=== PATIENT | female | born 1960 | race Asian ===

== ENCOUNTER → 2020-08-03 08:08 | Outpatient (BNVA) | payer OTHER, SELFPAY | PROVIDERS: PCP Internal Medicine; Referring Provider Internal Medicine; Visit Provider Physician Assistant | DX: Z01.818 Encounter for other preprocedural examination (principal) | CPT/HCPCS: 99203 ==

== ENCOUNTER 2020-08-07 09:55 | Outpatient (REF) | payer OTHER, SELFPAY | END 2020-08-07 09:56 | disposition home or self-care (01) | LOC: HO.HMGCLDS 09:55 | PROVIDERS: PCP Internal Medicine; Visit Provider Internal Medicine | DX: Z20.828 Contact with and (suspected) exposure to other viral communicable diseases (principal) | CPT/HCPCS: 36415; 87635 ==

== ENCOUNTER 2020-09-22 09:10 | Outpatient (REF) | payer OTHER, SELFPAY ==
--- NOTE | 2020-09-22 | MM_ITS ---
EXAMINATION: MM SCREENING DIGITAL BREAST TOMOSYNTHESIS, BILATERAL CLINICAL INFORMATION: Screening. Asymptomatic. 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 Due for yearly. COMPARISON: Mammography: 08/23/2019, 08/17/2018, 08/21/2017 TECHNIQUE: Digital breast tomosynthesis is performed in both the craniocaudal and mediolateral oblique views along with computer-aided detection (CAD). Synthesized 2D images are generated from the tomosynthesis. Additional left CC view is provided. FINDINGS: There are scattered areas of fibroglandular density (ACR BI-RADS breast composition Category b). There are no significant masses, abnormal calcifications, or other abnormalities. There are post therapy changes on the left with mild reduced breast size and stable scarring. Old biopsy clip marker again seen 6:00 left breast. There are no significant changes in either breast from prior studies. MM/MM tomosynthesis screening BI IMPRESSION: No mammographic evidence of malignancy. Post therapy changes left breast. ASSESSMENT: BI-RADS 2: Benign RECOMMENDATION: Routine annual mammography screening. This patient's information was entered into a reminder system with a target due date for their next mammogram.
== END 2020-09-22 09:11 | disposition home or self-care (01) ==
LOC: HO.MAMMO 09:10
PROVIDERS: PCP Internal Medicine; Visit Provider Internal Medicine
DX: Z12.31 Encounter for screening mammogram for malignant neoplasm of breast (principal)
CPT/HCPCS: 77063; 77067

== ENCOUNTER 2021-03-06 12:38 | Outpatient (REF) | payer OTHER, SELFPAY ==
[2021-03-06 14:12] LABS: MANUAL DIFF FLAG NO
[2021-03-06 14:27] LABS: Basophils Percent Auto 0.4 % (0-2); Eosinophils Percent Auto 0.5 % (0-4); Hematocrit 41.9 % (37-47); Hemoglobin 13.5 g/dl (12.0-16.0); Imm Gran Abs Auto 0.01 X10*3/uL (0.00-0.03); Imm Gran Pct Auto 0.2 % (0.0-0.4); Lymphocytes Absolute Auto 2.5 X10*3/uL (1.2-4.9); Lymphocytes Percent Auto 44.9 % (20-40); Mean Corpuscular HGB Conc 32.2 g/dl (31.0-35.0); Mean Corpuscular Hemoglobin 29.5 pg (27.0-33.0); Mean Corpuscular Volume 91.5 fL (80-98); Mean Platelet Volume 10.3 fL (9.4-12.3); Monocytes Absolute Auto 0.5 X10*3/uL (0.1-1.2); Monocytes Percent Auto 8.7 % (2-11); Neutrophils Absolute Auto 2.5 X10*3/uL (2.0-8.3); Neutrophils Percent Auto 45.3 % (45-73); Platelet Count 229 X10*3/uL (160-400); Red Blood Count 4.58 X10*6/uL (4.20-5.50); Red Cell Distribution Width 12.5 % (11.0-16.0); White Blood Count 5.5 X10*3/uL (4.8-10.8)
[2021-03-06 14:33] LABS: Alanine Aminotransferase 14 U/L (0-31); Albumin Level 4.7 g/dL (3.5-5.0); Alkaline Phosphatase 52 U/L (39-117); Anion Gap 14 (12-20); Aspartate Amino Transferase 19 U/L (5-31); Bilirubin Total 1.2 mg/dL (0.0-1.0); Blood Urea Nitrogen 14 mg/dL (9-16); Calcium 9.3 mg/dL (8.4-10.2); Carbon Dioxide 26 mmol/L (22-29); Chloride 104 mmol/L (96-108); Estimated Glomerular Filt Rate > 60; Glucose Random 115 mg/dL (60-115); Potassium 3.6 mmol/L (3.3-5.1); Sodium 140 mmol/L (135-145); Total Protein 7.3 g/dL (6.5-8.0)
[2021-03-06 14:44] LABS: Estimated Average Glucose 192 mg/dL; Hemoglobin A1c % 8.3 %
[2021-03-06 14:53] LABS: Creatinine Urine 14.38 mg/dL; Microalbumin Urine < 5.0 mg/L
[2021-03-07 06:12] LABS: LDL Cholesterol Direct 109 mg/dL (<100)
== END 2021-03-06 12:39 | disposition home or self-care (01) ==
LOC: HO.HMGCLDS 12:38
PROVIDERS: PCP Internal Medicine; Visit Provider Internal Medicine
DX: E13.9 Other specified diabetes mellitus without complications (principal); E78.9 Disorder of lipoprotein metabolism, unspecified
CPT/HCPCS: 36415; 80053; 82043; 83036; 83721; 85025

== ENCOUNTER → 2021-03-16 12:45 | Outpatient (BNVA) | payer OTHER, SELFPAY | PROVIDERS: PCP Internal Medicine; Referring Provider Internal Medicine; Visit Provider Nurse Practitioner Family ==

== ENCOUNTER 2021-06-26 07:48 | Day surgery (SDC) | payer OTHER, SELFPAY ==
[2021-06-19 11:09] VITALS: BMI 26.0
--- NOTE | 2021-06-25 10:14 | HO.ANESPROP2 ---
Documented by User: Magdalena Friedman NP 06/25/21 10:15 HPI - Anesthesia Eval Consult details Narrative: 61yo F for Colonoscopy PMFSH Active Problems Active Problems: All Active Problems (Updated 06/19/21 @ 11:04 by Cynthia Vieyra RN) Diabetes 1.5, managed as type 2 (Acute) High cholesterol (Acute) Screening for colon cancer (Acute) Lipid disorder (Acute) Past Medical History Medical History Breast cancer in female Diabetes Elevated cholesterol Family History Family History Father Cancer Mother Stroke CVD (cardiovascular disease) Surgical History Surgical History History of lumpectomy of left breast Hx of colonoscopy Social History Social History Household Members: Spouse Alcohol intake: never Patient Tobacco Use Status: Never used Tobacco Use of substances other than those prescribed or required for medical reasons: No Advance Directives Information Provided: No Meds Allergies Allergy/AdvReac Type Severity Reaction Status Date / Time No Known Allergies Allergy Verified 06/26/21 08:01 [No Known Allergies*] Home Medications Medication Instructions Recorded Confirmed Last Taken Type bisacodyl 5 mg tablet,delayed 10 mg PO DAILY 03/16/21 Unknown History release blood sugar diagnostic #10 ea 03/16/21 Unknown History lancets 28 gauge #100 ea 03/16/21 Unknown History omeprazole 20 mg capsule,delayed 20 mg PO DAILY 03/16/21 Unknown History release peg-electrolyte solution 420 gram ml PO 03/16/21 Unknown History oral solution Exam Exam Date and Time: June 25, 2021 1014 Height,Weight and Vital Signs: Height 4 ft 11 in Weight 58.513 kg Pertinent Lab Results Pertinent Lab Results: Laboratory Tests 03/06/21 03/06/21 12:43 12:43 WBC 5.5 Hgb 13.5 Hct 41.9 Plt Count 229 Sodium 140 Potassium 3.6 Chloride 104 Carbon Dioxide 26 BUN 14 Creatinine 0.65 Assessment and Plan Assessment Anesthesia Assessment: Chart Reviewed Documented by User: Soy Yang MD 06/26/21 08:41 PMFSH Past Medical History Medical History Breast cancer in female Diabetes Elevated cholesterol Family History Family History Father Cancer Mother Stroke CVD (cardiovascular disease) Family history of problems with anesthesia: No Surgical History Surgical History History of lumpectomy of left breast Hx of colonoscopy History of Problems with Anesthesia: No Social History Social History Household Members: Spouse Alcohol intake: never Patient Tobacco Use Status: Never used Tobacco Use of substances other than those prescribed or required for medical reasons: No Advance Directives Information Provided: No Meds Allergies Allergy/AdvReac Type Severity Reaction Status Date / Time No Known Allergies Allergy Verified 06/26/21 08:01 [No Known Allergies*] Home Medications Medication Instructions Recorded Confirmed Last Taken Type bisacodyl 5 mg tablet,delayed 10 mg PO DAILY 03/16/21 Unknown History release blood sugar diagnostic #10 ea 03/16/21 Unknown History lancets 28 gauge #100 ea 03/16/21 Unknown History omeprazole 20 mg capsule,delayed 20 mg PO DAILY 03/16/21 Unknown History release peg-electrolyte solution 420 gram ml PO 03/16/21 Unknown History oral solution Exam Airway Mallampati Class: II TM Dist: >3cm Neck ROM: Full Loose/Missing/Broken Teeth: No Assessment and Plan Assessment Anesthesia Assessment: Anesthesia Plan Discussed Final Anesthetic Review Family History of Problems with Anesthesia: No History of Problems with Anesthesia: No NPO: Yes ASA Class: II Final Preanesthetic Review: No Changes in Pt Med Stat, Meds/Allgs Chart Reviewed, Consent Obtained/Reviewed and Anes Risks/Benef Reviewed Patient Risk: Low Procedure Risk: Low Anesthetic Plan Anesthetic Plan: MAC: Disposition: Standard PACU
[2021-06-26 08:12] VITALS: BP 140/68; PULSE 67; RESP 16; TEMP 36.6; O2SAT 97
[2021-06-26 08:14] LABS: Glucose, Whole Blood 191 mg/dL (60-115)
[2021-06-26] MEDS: Lactated Ringers 1,000 ML 100 ML IVCONT (08:21)
--- NOTE | 2021-06-26 08:38 | MHC.SHP ---
Pre-Procedural Eval Section A Date of Service: 06/26/21 The patient is an INPATIENT: No The History & Physical has been completed within 30 days and I have reviewed it.: No Section B Chief Complaint: Screening, Constipation Details of Present Illness: Colon cancer screening Relevant Family History (Specify if Yes): No Relevant Social History: None Present Medications: see Short Stay Collaborative assessment Medical History: Significant History (Breast cancer in female Diabetes) History of Previous Operations: Relevant previous surgery/procedure and date(s) (History of lumpectomy of left breast Hx of colonoscopy) Allergies: Allergies Allergy/AdvReac Type Severity Reaction Status Date / Time No Known Allergies Allergy Verified 06/26/21 08:01 [No Known Allergies*] Review of Systems Sugical H&P ROS: Negative: Constitution, Cardiovascular, Respiratory and Gastrointestinal Exam Surgical H&P Exam: Normal: Heart, Normal: Lungs, Normal: Extremities and Normal: Abdomen Plan Diagnosis/Plan: Unchanged I have reviewed the history and physical and performed a pertinent physical examination on my patient. No changes have occurred unless specified.
--- NOTE | 2021-06-26 08:46 | P.BOP_ITS ---
Brief Operative Note Date of Service: 06/26/21 Pre-op diagnosis: Colon cancer screening Post-op diagnosis: other (Colon polyps, hemorrhoids) Procedure: COLONOSCOPY TILL CECUM WITH BIOPSIES AND SNARE POLYPECTOMY Consent: Indications for the procedure and potential complications of bleeding, perforation, reaction to medications and missed diagnosis were discussed with the patient and informed consent was obtained. Instrument: Olympus PCF H 190 L variable stiffness pediatric colonoscope Monitoring: Vital signs and clinical assessment, intermittent blood pressure monitoring, continuous EKG monitoring, Pulse oximetry and Carbon Dioxide monitoring were done throughout the procedure. Colon withdrawl time was 17 minutes. Procedure: The patient was placed in the left lateral decubitis position and pre-procedure medications were administered. After a digital rectal examination of the ano-rectum, the video colonoscope was inserted into the rectum and advanced through the colon to the cecum. The colonoscope was slowly withdrawn in a retrograde panoramic fashion and the colon mucosa was carefully examined including a retroflexed view of the rectum. Findings and interventions are described below. Procedure Difficulty: Without difficulty Findings: Terminal Ileum: Not evaluated Cecum: Normal Ascending Colon: Normal Transverse Colon: A 12-15 mm sessile polyp removed with a hot snare. A 4-5 mm sessile polyp removed with a cold bx. Descending Colon: Normal Sigmoid Colon: Normal Rectum: Normal Ano-rectum: Moderate internal hemorrhoids Colon preparation: Excellent Impression and Post Procedure Diagnosis: Colonoscopy Findings: Two small to medium sized polyps removed Moderate hemorrhoids on retroflexed exam. Plan: Await pathology results Patient has an appointment on 07/10/21 in the [facility] Clinic with Meli Rodriguez FNP-BC . Repeat Colonoscopy interval based on path results - in 3-5 years if polyps are adenomatous and 10 years if polyps are hyperplastic. Above findings were reviewed with the patient and colon polyps handout was given in the discharge area Surgeon: Keyona Bermudez MD Anesthesia: MAC (Jo Rowan CRNA and Dr Yang) Was an Stationary Engineer Apprentice used for this Procedure?: Yes Stationary Engineer Apprentice: Sugar Ordaz Estimated blood loss (mL): 0 Pathology: other (a. transverse colon polyps) Condition: stable Disposition: PACU
--- NOTE | 2021-06-26 09:26 | W.PM.OPN ---
Operative Note Operative Note Date of Service: 06/26/21 Narrative: Pre-op diagnosis:?Colon cancer screening Post-op diagnosis:?other (Colon polyps, hemorrhoids) Procedure:? COLONOSCOPY TILL CECUM WITH BIOPSIES AND SNARE POLYPECTOMY Consent: Indications for the procedure and potential complications of bleeding, perforation, reaction to medications and missed diagnosis were discussed with the patient and informed consent was obtained. Instrument: Olympus PCF H 190 L variable stiffness pediatric colonoscope Monitoring: Vital signs and clinical assessment, intermittent blood pressure monitoring, continuous EKG monitoring, Pulse oximetry and Carbon Dioxide monitoring were done throughout the procedure. Colon withdrawl time was 17 minutes. Procedure: The patient was placed in the left lateral decubitis position and pre-procedure medications were administered. After a digital rectal examination of the ano-rectum, the video colonoscope was inserted into the rectum and advanced through the colon to the cecum. The colonoscope was slowly withdrawn in a retrograde panoramic fashion and the colon mucosa was carefully examined including a retroflexed view of the rectum. Findings and interventions are described below. Procedure Difficulty: Without difficulty Findings: Terminal Ileum: Not evaluated Cecum:? Normal Ascending Colon:? Normal Transverse Colon:? A 12-15 mm sessile polyp removed with a hot snare.? A 4-5 mm sessile polyp removed with a cold bx. Descending Colon:? Normal Sigmoid Colon:? Normal Rectum:? Normal Ano-rectum:? Moderate internal hemorrhoids Colon preparation: Excellent ? Impression and Post Procedure Diagnosis: Colonoscopy Findings: Two small to medium sized polyps removed Moderate hemorrhoids on retroflexed exam. Plan: Await pathology results Patient has an appointment on 07/10/21 in the GI Clinic with ? Meli Rodriguez, IMPERSONATOR CHARACTER- . Repeat Colonoscopy interval based on path results - in 3-5 years if polyps are adenomatous and 10 years if polyps are hyperplastic. Above findings were reviewed with the patient and colon polyps handout was given in the discharge area Surgeon:?Keyona Bermudez MD Anesthesia:?MAC (Jo Rowan CRNA and Dr Yang) Was an Computer Numeric Control Setter used for this Procedure?:?Yes Computer Numeric Control Setter:?Sugar Ordaz Estimated blood loss (mL):?0 Pathology:?other (a. transverse colon polyps) Condition:?stable Disposition:?PACU
[2021-06-26 09:30] VITALS: BP 89/42; PULSE 64; RESP 16; TEMP 36.1; O2SAT 99
[2021-06-26 09:45] VITALS: BP 114/62; PULSE 64; RESP 16; TEMP 36.1; O2SAT 97
== END 2021-06-26 10:25 | disposition home or self-care (01) ==
PROVIDERS: PCP Internal Medicine; Visit Provider Internal Medicine Gastroenterology
PROC: 0DJD8ZZ Inspection of Lower Intestinal Tract, Via Natural or Artificial Opening Endoscopic (ICD-10-PCS; CPT 45378; principal; 2021-06-26 09:10)
DX: Z12.11 Encounter for screening for malignant neoplasm of colon (principal); D12.3 Benign neoplasm of transverse colon; K59.00 Constipation, unspecified; K64.8 Other hemorrhoids; E13.9 Other specified diabetes mellitus without complications; E78.00 Pure hypercholesterolemia, unspecified; Z79.84 Long term (current) use of oral hypoglycemic drugs; Z79.899 Other long term (current) drug therapy; Z85.3 Personal history of malignant neoplasm of breast
CPT/HCPCS: 45385; 45380; 82947; 88305

== ENCOUNTER → 2021-07-10 14:26 | Outpatient (BNVA) | payer OTHER, SELFPAY | PROVIDERS: Visit Provider Nurse Practitioner Family | DX: K59.01 Slow transit constipation (principal); D36.9 Benign neoplasm, unspecified site; Z98.890 Other specified postprocedural states | CPT/HCPCS: 99212 ==

== ENCOUNTER 2021-08-18 09:06 | Emergency (ER) | payer OTHER, SELFPAY ==
--- NOTE | ~2021-08-18 | CT_ITS ---
EXAMINATION: CT HEAD WITHOUT CONTRAST CLINICAL INFORMATION: Dizziness and headache. COMPARISON: None TECHNIQUE: Contiguous axial imaging was performed from the skull base to vertex without intravenous administration of contrast. This CT examination was performed using dose optimization techniques as appropriate, variously including the following: *Automated exposure control *Adjustment of mA and/or kV according to patient size (this includes techniques or standardized protocols for targeted exams where dose is matched to indication/reason for exam; i.e. extremities or head) *Use of iterative reconstruction technique DLP: 636.17 mGy-cm FINDINGS: There is no evidence of acute intracranial hemorrhage or territorial infarction. No abnormal mass effect or midline shift is seen. [place] to white matter differentiation is well preserved. No extra-axial fluid collections are identified. The ventricles are normal in size. Incidental note is made of bilateral dense near symmetric calcifications involving the basal ganglia (specifically bilateral globus pallidus), and both lobes of the cerebellum (dentate nuclei). The osseous structures and soft tissues are normal. The mastoid air cells and visualized portions of the paranasal sinuses are well aerated. CT/CT head/brain wo con IMPRESSION: No acute intracranial pathology. Incidental note is made of bilateral basal ganglia and bilateral dentate nuclei calcifications.
[2021-08-18 09:14] VITALS: BP 202/107; PULSE 74; RESP 18; TEMP 36.9; O2SAT 97; BMI 24.7
--- NOTE | 2021-08-18 09:29 | ED_ITS ---
HPI - General Adult General Chief complaint: General Medical Stated complaint: VOMITING HEADACHE Time Seen by Provider: 08/18/21 09:16 Source: patient Mode of arrival: ambulatory Limitations: no limitations History of Present Illness HPI narrative: 61 y/o female with history of diabetes, HLD who comes into the ER from home c/o frontal headache, nausea, vomiting and feeling unwell for the last 3 days. She reports anytime she tries to eat she vomits. She reports when she stands up she gets a severe frontal headache, palpitations and sweating episodes. She denies any known sick contacts. She denies this being the worst headache of her life. She reports it is worse when she stands up and better when she lays flat. It is also better when she takes Tylenol. She has no weakness, numbness, tingling. She is not confused. She denies any abdominal pain or diarrhea. She has not checked her temperature at home but denies any fevers. She is fully vaccinated against COVID-19. She has no chest pain or shortness of breath. Her palpitations occur when she stands up in her headache is worse and when she is about to vomit MD complaint: Headache and vomiting Onset (ago): day(s) (Three) Location: head and abdomen Radiation: non-radiation Severity: moderate Severity scale (1-10): 6 Quality: aching and other (Throbbing) Pain Consistency: intermittent Relieving factors: medication, rest and other (Laying flat) Exacerbating factors: eating Associated symptoms: diaphoresis, headaches, loss of appetite, malaise and nausea/vomiting Treatments prior to arrival: none Related Data Home Medications Medication Instructions Recorded Confirmed bisacodyl 5 mg tablet,delayed 10 mg PO DAILY 03/16/21 release lancets 28 gauge #100 ea 03/16/21 omeprazole 20 mg capsule,delayed 20 mg PO DAILY 03/16/21 release peg-electrolyte solution 420 gram ml PO 03/16/21 oral solution Previous Rx's Medication Instructions Recorded methylcellulose (laxative) 500 mg 500 mg PO DAILY #30 tab 03/16/21 tablet (Citrucel) glipizide 5 mg tablet 5 mg PO BID #180 tab 06/07/21 metformin 750 mg tablet,extended 750 mg PO DAILY 90 Days #90 tab 06/07/21 release 24 hr simvastatin 40 mg tablet 40 mg PO BEDTIME 90 Days #90 tab 06/07/21 lisinopril 2.5 mg tablet 2.5 mg PO DAILY 90 Days #90 tab 06/08/21 docusate sodium 100 mg capsule 100 mg PO BEDTIME #30 cap 07/10/21 blood sugar diagnostic #100 ea 07/11/21 ibuprofen 600 mg tablet 600 mg PO Q8H PRN #10 tab 08/18/21 ondansetron 4 mg disintegrating 4 mg PO Q8H PRN #7 tab 08/18/21 tablet Allergies Allergy/AdvReac Type Severity Reaction Status Date / Time No Known Allergies Allergy Verified 07/10/21 14:32 [No Known Allergies*] Review of Systems Review of Systems: Constitutional: No Fever, + Chills, +sweats ENT/Mouth: No sore throat, No Rhinorrhea, No Swallowing Difficulty Eyes: No Eye Pain, No Swelling, No Redness Cardiovascular: No Chest Pain, No SOB, No Orthopnea, No Edema, +Palpitations Respiratory: No Cough, No Sputum, No Wheezing, No dyspnea Gastrointestinal: + Nausea, + Vomiting, No Diarrhea, No abdominal Pain, No Hematochezia, No Melena Genitourinary: No Dysuria, No Urinary Frequency, No Hematuria Musculoskeletal: No joint pain, No Myalgias Skin: No Skin Lesions, No rash Neuro: No Weakness, No Numbness, No Dizziness, + Headache Psych: + Anxiety/Panic, No Depression Heme/Lymph: No Bruising, No Lymphadenopathy Endocrine: No Polyuria, No Polydipsia PMFSH Past Medical History Medical History (Updated 08/18/21 @ 12:55 by MAGAN Ken) Breast cancer in female Diabetes Elevated cholesterol Tubular adenoma Surgical History History of lumpectomy of left breast Hx of colonoscopy Family History Family History Father Cancer Mother Stroke CVD (cardiovascular disease) Social History Social History Household Members: Spouse Alcohol intake: never Patient Tobacco Use Status: Never used Tobacco Advance Directives: No Advance Directives Information Provided: Yes Physical Exam Vital Signs: Vital Signs: Last Vital Signs Temp 98.4 F 08/18/21 09:14 Pulse 58 08/18/21 10:00 Resp 16 08/18/21 10:00 BP 134/61 08/18/21 10:00 Pulse Ox 96 08/18/21 10:00 Body Mass Index 24.7 Appearance: Alert. Oriented X3. No acute distress. Eyes: Pupils equal, round and reactive to light. EOMI, no nystagmus. ENT: Pharynx normal. Moist mucus membranes Neck: Normal inspection. Neck supple. CVS: Normal heart rate and rhythm. Pulses normal. Respiratory: No respiratory distress. Breath sounds normal. Abdomen: Soft and nontender. +BS x4 Skin: Skin warm and dry. Normal skin color. Normal skin turgor. No rashes. Extremities: No lower extremity edema. Left elbow with mild superficial well healing abrasion Neuro: Oriented X 3. No motor deficit. No sensory deficit. Ambulates with steady gait. Course Course Course Narrative: 61 y/o female with history of DM and HLD presenting with frontal headaches, nausea and vomiting for the last 3 days. She reports inability to tolerate any PO. Her headaches are worse with standing and movement. On arrival her BP significantly elevated 202/107 with HR 70's. She denies a history of hypertension, question this is an accurate blood pressure given the cuff was very large and she was anxious on arrival. Will repeat vital signs chelly. Will plan for head CT & metabolic workup. Reevaluation(s) Reevaluation #1: Lab workup is unremarkable. Her head CT did not show any acute hemorrhage or infarct. She was given fluids, Zofran, and Toradol with improvement in her symptoms. She is tolerating p.o.. She is stable for discharge home a with supportive care. She is encouraged follow-up with her doctor next week or come back to the ER if symptoms do not improve or worsen. Medical Decision Making Lab Data Result diagrams: 08/18/21 09:33 08/18/21 09:33 Labs: Lab Results 08/18/21 08/18/21 08/18/21 Range/Units 09:33 09:33 09:33 WBC 4.9 (4.8-10.8) X10*3/uL RBC 4.89 (4.20-5.50) X10*6/uL Hgb 14.5 (12.0-16.0) g/dl Hct 43.5 (37-47) % MCV 89.0 (80-98) fL MCH 29.7 (27.0-33.0) pg MCHC 33.3 (31.0-35.0) g/dl RDW 12.1 (11.0-16.0) % Plt Count 240 (160-400) X10*3/uL MPV 9.8 (9.4-12.3) fL Immature Gran % (Auto) 0.4 (0.0-0.4) % Neut % (Auto) 55.8 (45-73) % Lymph % (Auto) 33.6 (20-40) % [place] % (Auto) 9.2 (2-11) % Eos % (Auto) 0.8 (0-4) % Baso % (Auto) 0.2 (0-2) % Lymph # (Auto) 1.7 (1.2-4.9) X10*3/uL [place] # (Auto) 0.5 (0.1-1.2) X10*3/uL Eos # (Auto) 0.0 (0.0-0.4) X10*3/uL Baso # (Auto) 0.0 (0.0-0.2) X10*3/uL Abs Immat Gran (auto) 0.02 (0.00-0.03) X10*3/uL Absolute Neuts (auto) 2.7 (2.0-8.3) X10*3/uL Absolute Nucleated RBC 0.000 (0.0-0.012) X10*3/uL Nucleated RBC % (auto) 0.0 (0.0-0.2) /100WBC Sodium 137 (135-145) mmol/L Potassium 3.8 (3.3-5.1) mmol/L Chloride 101 (96-108) mmol/L Carbon Dioxide 25 (22-29) mmol/L Anion Gap 15 (12-20) BUN 13 (9-16) mg/dL Creatinine 0.71 (0.5-1.4) mg/dL Estim Creat Clear Calc 65.3 Estimated GFR > 60 Random Glucose 245 H (60-115) mg/dL Lactic Acid 1.6 (0.5-2.0) mmol/L Calcium 9.2 (8.4-10.2) mg/dL Magnesium 2.0 (1.6-2.6) mg/dL Total Bilirubin 0.8 (0.0-1.0) mg/dL Direct Bilirubin 0.3 (0.0-0.5) mg/dL AST 23 (5-31) U/L ALT 22 (0-31) U/L Alkaline Phosphatase 68 D (39-117) U/L Total Protein 7.3 (6.5-8.0) g/dL Albumin 4.4 (3.5-5.0) g/dL Urine Color Urine Appearance Urine pH (5.0-8.0) Ur Specific [place] (1.005-1.025) Urine Protein (NEG-TRACE) MG/DL Urine Glucose (UA) (NEG) MG/DL Urine Ketones (NEG) MG/DL Urine Blood (NEG) Urine Nitrite (NEG) Ur Leukocyte Esterase (NEG) Urine RBC (0) /HPF Urine WBC (0-4) /HPF Ur Squamous Epith Cells /LPF Urine Bacteria /LPF Urine Mucus /LPF COVID-19 (DAVIN) (Negative) COVID-19 Clin Com 08/18/21 08/18/21 Range/Units 09:33 10:21 WBC (4.8-10.8) X10*3/uL RBC (4.20-5.50) X10*6/uL Hgb (12.0-16.0) g/dl Hct (37-47) % MCV (80-98) fL MCH (27.0-33.0) pg MCHC (31.0-35.0) g/dl RDW (11.0-16.0) % Plt Count (160-400) X10*3/uL MPV (9.4-12.3) fL Immature Gran % (Auto) (0.0-0.4) % Neut % (Auto) (45-73) % Lymph % (Auto) (20-40) % [place] % (Auto) (2-11) % Eos % (Auto) (0-4) % Baso % (Auto) (0-2) % Lymph # (Auto) (1.2-4.9) X10*3/uL [place] # (Auto) (0.1-1.2) X10*3/uL Eos # (Auto) (0.0-0.4) X10*3/uL Baso # (Auto) (0.0-0.2) X10*3/uL Abs Immat Gran (auto) (0.00-0.03) X10*3/uL Absolute Neuts (auto) (2.0-8.3) X10*3/uL Absolute Nucleated RBC (0.0-0.012) X10*3/uL Nucleated RBC % (auto) (0.0-0.2) /100WBC Sodium (135-145) mmol/L Potassium (3.3-5.1) mmol/L Chloride (96-108) mmol/L Carbon Dioxide (22-29) mmol/L Anion Gap (12-20) BUN (9-16) mg/dL Creatinine (0.5-1.4) mg/dL Estim Creat Clear Calc Estimated GFR Random Glucose (60-115) mg/dL Lactic Acid (0.5-2.0) mmol/L Calcium (8.4-10.2) mg/dL Magnesium (1.6-2.6) mg/dL Total Bilirubin (0.0-1.0) mg/dL Direct Bilirubin (0.0-0.5) mg/dL AST (5-31) U/L ALT (0-31) U/L Alkaline Phosphatase (39-117) U/L Total Protein (6.5-8.0) g/dL Albumin (3.5-5.0) g/dL Urine Color YELLOW Urine Appearance HAZY Urine pH 6.0 (5.0-8.0) Ur Specific [place] >= 1.030 H (1.005-1.025) Urine Protein 1+ H (NEG-TRACE) MG/DL Urine Glucose (UA) 500 H (NEG) MG/DL Urine Ketones >=80 (NEG) MG/DL Urine Blood TRACE (NEG) Urine Nitrite NEG (NEG) Ur Leukocyte Esterase NEG (NEG) Urine RBC 1-4 (0) /HPF Urine WBC 0-2 (0-4) /HPF Ur Squamous Epith Cells 1+ /LPF Urine Bacteria NONE /LPF Urine Mucus 3+ /LPF COVID-19 (DAVIN) Negative (Negative) COVID-19 Clin Com See Note Discharge Plan Discharge Clinical Impression: Acute headache Qualifiers: Headache type: unspecified Intractability: not intractable Qualified Code(s): R51.9 - Headache, unspecified Vomiting Qualifiers: Vomiting type: unspecified Vomiting Intractability: non-intractable Nausea presence: with nausea Qualified Code(s): R11.2 - Nausea with vomiting, unspecified Patient Disposition: Home, Self-Care Instructions: Acute Headache (ED), Acute Nausea and Vomiting (ED) Additional Instructions: Your lab workup today was normal. Your CT scan did now show any causes of your headache. Recommend rest, drink plenty of fluid. Stick to a bland diet while you are not feeling well. Take the prescribed medications as needed for nausea & pain. Follow up with your doctor next week. If you develop new or worsening symptoms call 911 or come back to the ER for further evaluation. Prescriptions: New ondansetron 4 mg tablet,disintegrating 4 mg PO Q8H PRN (Reason: nausea and vomiting) Qty: 7 RF: 0 ibuprofen 600 mg tablet 600 mg PO Q8H PRN (Reason: pain) Qty: 10 RF: 0 No Action metformin 750 mg tablet extended release 24 hr 750 mg PO DAILY 90 Days Qty: 90 RF: 0 glipizide 5 mg tablet 5 mg PO BID Qty: 180 RF: 0 simvastatin 40 mg tablet 40 mg PO BEDTIME 90 Days Qty: 90 RF: 0 lisinopril 2.5 mg tablet 2.5 mg PO DAILY 90 Days Qty: 90 RF: 0 (DME) blood sugar diagnostic Strip See Rx Instructions strip Not Applicable .MEDSUPPLY Qty: 100 RF: 1 docusate sodium 100 mg capsule 100 mg PO BEDTIME Qty: 30 RF: 3 peg-electrolyte soln 420 gram recon soln PO RF: 0 bisacodyl 5 mg tablet,delayed release (DR/EC) 10 mg PO DAILY RF: 0 omeprazole 20 mg capsule,delayed release(DR/EC) 20 mg PO DAILY RF: 0 (DME) lancets 28 gauge misc See Rx Instructions gauge topical .MEDSUPPLY Qty: 100 RF: 0 Citrucel 500 mg tablet 500 mg PO DAILY Qty: 30 RF: 2 Referrals: Mary Pina MD [Primary Care Provider] - 1 week Stand Alone Forms: Work/School Release Discharge Date/Time: 08/18/21 13:26
[2021-08-18] MEDS: ondansetron HCL 4 MG/2 ML VIAL IVPUSH (09:42)
[2021-08-18 09:47] LABS: MANUAL DIFF FLAG NO
[2021-08-18 09:48] LABS: Basophils Percent Auto 0.2 % (0-2); Eosinophils Percent Auto 0.8 % (0-4); Hematocrit 43.5 % (37-47); Hemoglobin 14.5 g/dl (12.0-16.0); Imm Gran Abs Auto 0.02 X10*3/uL (0.00-0.03); Imm Gran Pct Auto 0.4 % (0.0-0.4); Lymphocytes Absolute Auto 1.7 X10*3/uL (1.2-4.9); Lymphocytes Percent Auto 33.6 % (20-40); Mean Corpuscular HGB Conc 33.3 g/dl (31.0-35.0); Mean Corpuscular Hemoglobin 29.7 pg (27.0-33.0); Mean Platelet Volume 9.8 fL (9.4-12.3); Monocytes Absolute Auto 0.5 X10*3/uL (0.1-1.2); Monocytes Percent Auto 9.2 % (2-11); Neutrophils Absolute Auto 2.7 X10*3/uL (2.0-8.3); Neutrophils Percent Auto 55.8 % (45-73); Platelet Count 240 X10*3/uL (160-400); Red Blood Count 4.89 X10*6/uL (4.20-5.50); Red Cell Distribution Width 12.1 % (11.0-16.0); White Blood Count 4.9 X10*3/uL (4.8-10.8)
[2021-08-18 10:00] VITALS: BP 134/61; PULSE 58; RESP 16; O2SAT 96
[2021-08-18 10:00] LABS: Lactic Acid 1.6 mmol/L (0.5-2.0)
[2021-08-18 10:04] LABS: COVID-19 Test Negative (Negative); IDNOW Serial# 9DD0AD1C
[2021-08-18 10:07] LABS: Alanine Aminotransferase 22 U/L (0-31); Albumin Level 4.4 g/dL (3.5-5.0); Alkaline Phosphatase 68 U/L (39-117); Anion Gap 15 (12-20); Aspartate Amino Transferase 23 U/L (5-31); Bilirubin Direct 0.3 mg/dL (0.0-0.5); Bilirubin Total 0.8 mg/dL (0.0-1.0); Blood Urea Nitrogen 13 mg/dL (9-16); Calcium 9.2 mg/dL (8.4-10.2); Carbon Dioxide 25 mmol/L (22-29); Chloride 101 mmol/L (96-108); Creatinine Clr Calc Pharmacy 65.3; Estimated Glomerular Filt Rate > 60; Glucose Random 245 mg/dL (60-115); Potassium 3.8 mmol/L (3.3-5.1); Sodium 137 mmol/L (135-145); Total Protein 7.3 g/dL (6.5-8.0)
[2021-08-18 10:30] LABS: Appearance Urine HAZY; Color Urine YELLOW; Glucose Urine UA 500 MG/DL (NEG); Leukocyte Esterase Urine NEG (NEG); Nitrite Urine NEG (NEG); Specific Gravity - Urine >= 1.030 (1.005-1.025); UACC Culture Trigger NO; Urine Blood TRACE (NEG); Urine Ketones >=80 MG/DL (NEG); Urine Protein 1+ MG/DL (NEG-TRACE)
[2021-08-18 10:36] LABS: Mucus Urine 3+ /LPF; Squamous Epithelial Cell Urine 1+ /LPF; WBC Urine 0-2 /HPF (0-4)
[2021-08-18] MEDS: 0.9 % Sodium Chloride 1,000 ML 999 ML IVCONT (11:08)
[2021-08-18] MEDS: Ketorolac Tromethamine 15 MG/ML VIAL 30 MG IVPUSH (11:09)
== END 2021-08-18 13:26 | disposition home or self-care (01) ==
PROVIDERS: Physician Assistant; Emergency Provider Emergency Medicine; PCP Internal Medicine
DX: R11.2 Nausea with vomiting, unspecified (principal); R51.9 Headache, unspecified; E11.9 Type 2 diabetes mellitus without complications; Z20.822 Contact with and (suspected) exposure to COVID-19
CPT/HCPCS: 36415; 70450; 80048; 80076; 81001; 83605; 83735; 85025; 87635; 96361; 96374; 96375; 99284; J1885; J2405

== ENCOUNTER 2021-09-24 08:57 | Outpatient (REF) | payer OTHER, SELFPAY ==
[2021-09-24 11:27] LABS: MANUAL DIFF FLAG NO
[2021-09-24 11:36] LABS: Basophils Percent Auto 0.2 % (0-2); Eosinophils Absolute Auto 0.1 X10*3/uL (0.0-0.4); Eosinophils Percent Auto 1.4 % (0-4); Hematocrit 41.6 % (37.0-47.0); Hemoglobin 13.4 g/dl (12.0-16.0); Imm Gran Abs Auto 0.01 X10*3/uL (0.00-0.03); Imm Gran Pct Auto 0.2 % (0.0-0.4); Lymphocytes Absolute Auto 1.8 X10*3/uL (1.2-4.9); Lymphocytes Percent Auto 42.7 % (20-40); Mean Corpuscular HGB Conc 32.2 g/dl (31.0-35.0); Mean Corpuscular Hemoglobin 29.5 pg (27.0-33.0); Mean Corpuscular Volume 91.4 fL (80.0-98.0); Mean Platelet Volume 10.1 fL (9.4-12.3); Monocytes Absolute Auto 0.4 X10*3/uL (0.1-1.2); Monocytes Percent Auto 8.8 % (2-11); Neutrophils Percent Auto 46.7 % (45-73); Platelet Count 257 X10*3/uL (160-400); Red Blood Count 4.55 X10*6/uL (4.20-5.50); Red Cell Distribution Width 12.6 % (11.0-16.0); White Blood Count 4.3 X10*3/uL (4.8-10.8)
[2021-09-24 11:46] LABS: Alanine Aminotransferase 21 U/L (0-31); Albumin Level 4.4 g/dL (3.5-5.0); Alkaline Phosphatase 65 U/L (39-117); Anion Gap 14 (12-20); Aspartate Amino Transferase 17 U/L (5-31); Bilirubin Total 0.8 mg/dL (0.0-1.0); Blood Urea Nitrogen 10 mg/dL (9-16); Calcium 9.3 mg/dL (8.4-10.2); Carbon Dioxide 25 mmol/L (22-29); Chloride 105 mmol/L (96-108); Estimated Glomerular Filt Rate > 60; Glucose Random 176 mg/dL (60-115); Potassium 4.4 mmol/L (3.3-5.1); Sodium 140 mmol/L (135-145); Total Protein 7.2 g/dL (6.5-8.0)
[2021-09-24 12:10] LABS: Estimated Average Glucose 214 mg/dL; Hemoglobin A1c % 9.1 %
[2021-09-25 11:01] LABS: LDL Cholesterol Direct 76 mg/dL (<100)
== END 2021-09-24 08:58 | disposition home or self-care (01) ==
LOC: HO.HMGCLDS 08:57
PROVIDERS: PCP Internal Medicine; Visit Provider Internal Medicine
DX: E13.9 Other specified diabetes mellitus without complications (principal); E78.9 Disorder of lipoprotein metabolism, unspecified; R42 Dizziness and giddiness
CPT/HCPCS: 36415; 80053; 83036; 83721; 85025

== ENCOUNTER → 2021-10-08 09:22 | Outpatient (BNVA) | payer OTHER, SELFPAY | PROVIDERS: PCP Internal Medicine; Referring Provider Internal Medicine; Visit Provider Nurse Practitioner Family | DX: K59.04 Chronic idiopathic constipation (principal); K21.9 Gastro-esophageal reflux disease without esophagitis | CPT/HCPCS: 99212 ==

== ENCOUNTER 2021-11-09 08:18 | Outpatient (REF) | payer OTHER, SELFPAY ==
--- NOTE | ~2021-11-09 | MM_ITS ---
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 Due for yearly. COMPARISON: Mammography: 09/22/2020, 08/23/2019, 08/17/2018 TECHNIQUE: Digital breast tomosynthesis is performed in both the craniocaudal and mediolateral oblique views along with computer-aided detection (CAD). Synthesized 2D images are generated from the tomosynthesis. Additional left MLO view is provided. FINDINGS: There are scattered areas of fibroglandular density (ACR BI-RADS breast composition Category b). There are no significant masses, abnormal calcifications, or other abnormalities. Post therapy changes are similar to prior study. Biopsy clip marker again seen central mid 6:00 left breast. The axilla and skin contours are unremarkable. MM/MM tomosynthesis screening BI IMPRESSION: No mammographic evidence of malignancy. Post therapy changes left breast. ASSESSMENT: BI-RADS 2: Benign RECOMMENDATION: Routine annual mammography screening. This patient's information was entered into a reminder system with a target due date for their next mammogram.
== END 2021-11-09 08:19 | disposition home or self-care (01) ==
LOC: HO.MAMMO 08:18
PROVIDERS: Visit Provider Internal Medicine
DX: Z12.31 Encounter for screening mammogram for malignant neoplasm of breast (principal)
CPT/HCPCS: 77063; 77067

== ENCOUNTER 2022-02-15 12:20 | Outpatient (REF) | payer OTHER, SELFPAY ==
[2022-02-15 13:59] LABS: Estimated Average Glucose 217 mg/dL; Hemoglobin A1c % 9.2 %
[2022-02-15 14:02] LABS: Alanine Aminotransferase 19 U/L (0-31); Albumin Level 4.3 g/dL (3.5-5.0); Alkaline Phosphatase 53 U/L (39-117); Anion Gap 13 (12-20); Aspartate Amino Transferase 17 U/L (5-31); Bilirubin Total 1.2 mg/dL (0.0-1.0); Blood Urea Nitrogen 10 mg/dL (9-16); Calcium 9.1 mg/dL (8.4-10.2); Carbon Dioxide 23 mmol/L (22-29); Chloride 103 mmol/L (96-108); Estimated Glomerular Filt Rate > 60; Glucose Random 158 mg/dL (60-115); Potassium 3.8 mmol/L (3.3-5.1); Sodium 135 mmol/L (135-145); Total Protein 6.9 g/dL (6.5-8.0)
[2022-02-15 14:10] LABS: Creatinine Urine 13.46 mg/dL; Microalbumin Urine < 5.0 mg/L
[2022-02-16 06:11] LABS: LDL Cholesterol Direct 92 mg/dL (<100)
== END 2022-02-15 12:21 | disposition home or self-care (01) ==
LOC: HO.HMGCLDS 12:20
PROVIDERS: PCP Internal Medicine; Visit Provider Internal Medicine
DX: E13.9 Other specified diabetes mellitus without complications (principal); E78.9 Disorder of lipoprotein metabolism, unspecified
CPT/HCPCS: 36415; 80053; 82043; 83036; 83721

== ENCOUNTER → 2022-04-05 08:17 | Outpatient (BNVA) | payer OTHER, SELFPAY | PROVIDERS: PCP Internal Medicine; Referring Provider Internal Medicine; Visit Provider Nurse Practitioner Family | DX: K59.01 Slow transit constipation (principal); K21.9 Gastro-esophageal reflux disease without esophagitis | CPT/HCPCS: 99212 ==

== ENCOUNTER 2022-07-15 11:29 | Outpatient (REF) | payer OTHER, SELFPAY ==
[2022-07-15 14:59] LABS: Influenza A PCR NEGATIVE (Negative); Influenza B PCR NEGATIVE (Negative); Resp Syncy Virus RNA Qual PCR NEGATIVE (Negative); SARS COV2 PCR INHOUSE POSITIVE (Negative)
== END 2022-07-15 11:30 | disposition home or self-care (01) ==
LOC: HO.LAB 11:29
PROVIDERS: Visit Provider Physician Assistant
DX: Z20.822 Contact with and (suspected) exposure to COVID-19 (principal); R09.89 Other specified symptoms and signs involving the circulatory and respiratory systems
CPT/HCPCS: 0241U

== ENCOUNTER 2022-09-14 10:04 | Outpatient (REF) | payer OTHER, SELFPAY ==
[2022-09-14 12:06] LABS: Estimated Average Glucose 197 mg/dL; Hemoglobin A1c % 8.5 %
[2022-09-14 12:07] LABS: Alanine Aminotransferase 25 U/L (0-31); Albumin Level 4.5 g/dL (3.5-5.0); Alkaline Phosphatase 58 U/L (39-117); Anion Gap 16 (12-20); Aspartate Amino Transferase 20 U/L (5-31); Blood Urea Nitrogen 10 mg/dL (9-16); Calcium 9.3 mg/dL (8.4-10.2); Carbon Dioxide 26 mmol/L (22-29); Chloride 105 mmol/L (96-108); Cholesterol 161 mg/dL; Estimated Glomerular Filt Rate > 60; Glucose Fasting 145 mg/dL (60-99); HDL Cholesterol 61 mg/dL; LDL Cholesterol Calculated 79 mg/dl; Potassium 3.9 mmol/L (3.3-5.1); Sodium 143 mmol/L (135-145); Total Protein 7.1 g/dL (6.5-8.0); Triglycerides 108 mg/dL
[2022-09-14 12:22] LABS: Creatinine Urine 131.73 mg/dL; Microalbum/Creatinine Ratio Ur 20.4 ug/mg cr
== END 2022-09-14 10:05 | disposition home or self-care (01) ==
LOC: HO.HMGCLDS 10:04
PROVIDERS: PCP Internal Medicine; Visit Provider Internal Medicine
DX: E13.9 Other specified diabetes mellitus without complications (principal); E78.9 Disorder of lipoprotein metabolism, unspecified
CPT/HCPCS: 36415; 80053; 80061; 82043; 83036

== ENCOUNTER 2022-11-12 08:29 | Outpatient (REF) | payer OTHER, SELFPAY ==
--- NOTE | ~2022-11-12 | MM_ITS ---
EXAMINATION: MM SCREENING DIGITAL BREAST TOMOSYNTHESIS, BILATERAL CLINICAL INFORMATION: Screening. Asymptomatic. Previous left lumpectomy. COMPARISON: Mammography: November 09, 2021 and studies dating back to February 20, 2016. TECHNIQUE: Digital breast tomosynthesis is performed in both the craniocaudal and mediolateral oblique views along with computer-aided detection (CAD). Synthesized 2D images are generated from the tomosynthesis. FINDINGS: The breasts are heterogeneously dense, which may obscure small masses (ACR BI-RADS breast composition Category c). There are no new significant masses, abnormal calcifications, or other abnormalities. Postsurgical change again seen within the left breast. MM/MM tomosynthesis screening BI IMPRESSION: No significant changes from prior exam. ASSESSMENT: BI-RADS 2: Benign RECOMMENDATION: Routine annual mammography screening. This patient's information was entered into a reminder system with a target due date for their next mammogram.
== END 2022-11-12 08:30 | disposition home or self-care (01) ==
LOC: HO.MAMMO 08:29
PROVIDERS: PCP Internal Medicine; Visit Provider Internal Medicine
DX: Z12.31 Encounter for screening mammogram for malignant neoplasm of breast (principal)
CPT/HCPCS: 77063; 77067

== ENCOUNTER 2023-02-08 08:37 | Outpatient (REF) | payer OTHER, SELFPAY ==
[2023-02-08 11:31] LABS: Estimated Average Glucose 203 mg/dL; Hemoglobin A1c % 8.7 %
[2023-02-08 12:34] LABS: Alanine Aminotransferase 18 U/L (0-31); Albumin Level 4.3 g/dL (3.5-5.0); Alkaline Phosphatase 52 U/L (39-117); Anion Gap 13 (12-20); Aspartate Amino Transferase 16 U/L (5-31); Blood Urea Nitrogen 14 mg/dL (9-16); Calcium 9.4 mg/dL (8.4-10.2); Carbon Dioxide 29 mmol/L (22-29); Chloride 105 mmol/L (96-108); Estimated Glomerular Filt Rate > 60; Glucose Random 159 mg/dL (60-115); Sodium 143 mmol/L (135-145); Total Protein 6.8 g/dL (6.5-8.0)
[2023-02-09 15:13] LABS: LDL Cholesterol Direct 120 mg/dL (<100)
== END 2023-02-08 08:38 | disposition home or self-care (01) ==
LOC: HO.HMGCLDS 08:37
PROVIDERS: PCP Internal Medicine; Visit Provider Internal Medicine
DX: E78.9 Disorder of lipoprotein metabolism, unspecified (principal); E11.9 Type 2 diabetes mellitus without complications
CPT/HCPCS: 36415; 80053; 83036; 83721

== ENCOUNTER 2023-02-17 15:34 | Emergency (ER) | payer OTHER, SELFPAY ==
[2023-02-17 15:51] VITALS: BP 154/75; PULSE 68; RESP 18; TEMP 36.7; O2SAT 98; BMI 25.4
--- NOTE | 2023-02-17 15:52 | ED_ITS ---
HPI - General Adult General Chief complaint: General Medical <MAGAN Ken - Last Filed: 02/17/23 15:55> Stated complaint: dizziness/vomiting/diabetic <MAGAN Ken - Last Filed: 02/17/23 15:55> Time Seen by Provider: 02/17/23 17:48 <MAGAN Ken - Last Filed: 02/17/23 15:55> Source: patient <Po Crouch MD - Last Filed: 02/17/23 19:23> Mode of arrival: ambulatory <Po Crouch MD - Last Filed: 02/17/23 19:23> Limitations: no limitations <Po Crouch MD - Last Filed: 02/17/23 19:23> History of Present Illness HPI narrative: 63-year-old female with history of diabetes presents with lightheadedness, nausea. Symptoms started today. The symptoms are moderate to severe. There is no prior treatment. The symptoms are lightheaded versus vertiginous disease symptoms. Symptoms are worse with standing up or sitting up. They are better with lying still. There is no change with head movement. She does not have a sensation of movement at all. She denies any chest pain, palpitations, shortness of breath. She does have some nausea and 1 episode of emesis that was nonbloody and nonbilious. She denies any diarrhea or constipation. She denies any abdominal pain. She has had no fevers or chills. She did have a COVID mclean ster update just a few days ago. She denies any sick contacts. She also describes a headache that is frontal in nature. Her headache is described as mild. It was not sudden onset. There is no neck pain or stiffness. <Po Crouch MD - Last Filed: 02/17/23 19:23> Related Data Home medications: Home Medications Medication Instructions Recorded Confirmed bisacodyl 5 mg tablet,delayed 10 mg PO DAILY 03/16/21 10/18/22 release Previous Rx's Medication Instructions Recorded meclizine 12.5 mg tablet 25 mg PO BID 15 days #60 tabs 09/07/21 docusate sodium 100 mg capsule 100 mg PO BEDTIME #30 caps 10/08/21 polyethylene glycol 3350 17 gram 17 g PO DAILY #100 ea 04/05/22 oral powder packet (Miralax) blood sugar diagnostic #100 ea 05/23/22 doxycycline hyclate 100 mg capsule 100 mg PO BID 7 days #14 caps 07/15/22 prednisone 20 mg tablet 20 mg PO DAILY 5 days #5 tabs 07/15/22 glipizide 10 mg tablet 10 mg PO BID 90 days #180 tabs 08/28/22 pioglitazone 30 mg tablet (Actos) 30 mg PO DAILY 90 days #90 tabs 10/18/22 lisinopril 2.5 mg tablet 2.5 mg PO DAILY 90 days #90 tabs 11/12/22 simvastatin 40 mg tablet 40 mg PO BEDTIME 90 days #90 tabs 11/12/22 lancets 28 gauge #100 ea 12/03/22 ondansetron 4 mg disintegrating 4 mg PO Q8H PRN nausea and 02/17/23 tablet vomiting #10 tabs <MAGAN Ken - Last Filed: 02/17/23 15:55> Allergies/adverse reactions: Allergies Allergy/AdvReac Type Severity Reaction Status Date / Time No Known Allergies Allergy Verified 10/18/22 10:53 [No Known Allergies*] <MAGAN Ken - Last Filed: 02/17/23 15:55> [facility] Past Medical History Medical History: Medical History Breast cancer in female Diabetes Elevated cholesterol Tubular adenoma <MAGAN Ken - Last Filed: 02/17/23 15:55> Surgical History: Surgical History History of lumpectomy of left breast Hx of colonoscopy <MAGAN Ken - Last Filed: 02/17/23 15:55> Family History Family History: Family History Father Cancer Mother Stroke CVD (cardiovascular disease) <MAGAN Ken - Last Filed: 02/17/23 15:55> Social History Social History: Social History Household Members: Spouse Housing: House Alcohol intake: never Patient Tobacco Use Status: Never used Tobacco e-Cigarette/Vaping Use: Never Used Advance Directives: No Advance Directives Information Provided: No Current occupational status: employed Cognitive needs: No Hearing needs: No Vision needs: Yes <MAGAN Ken - Last Filed: 02/17/23 15:55> Physical Exam ED Vital Signs: Vital Signs - 24 hr 02/17/23 15:51 02/17/23 16:34 02/17/23 18:00 Temperature 98.0 F 98.7 F Pulse Rate 68 68 70 Respiratory Rate 18 16 18 Blood Pressure 154/75 H 126/57 L 135/73 Pulse Oximetry 98 97 96 Oxygen Delivery Method Room Air Room Air Room Air BMI result Body Mass Index 25.4 <MAGAN Ken - Last Filed: 02/17/23 15:55> Vital Signs - 24 hr 02/17/23 15:51 02/17/23 16:34 02/17/23 18:00 Temperature 98.0 F 98.7 F Pulse Rate 68 68 70 Respiratory Rate 18 16 18 Blood Pressure 154/75 H 126/57 L 135/73 Pulse Oximetry 98 97 96 Oxygen Delivery Method Room Air Room Air Room Air BMI result Body Mass Index 25.4 <Po Crouch MD - Last Filed: 02/17/23 19:23> GEN: Well developed, no acute distress, alert, oriented HEENT: Normocephalic, atraumatic, normal external ears, nose appears normal, no oropharyngeal edema or exudates Eyes: Normal to appearance Neck: Supple, no lymphadenopathy Respiratory: Talks in complete sentences, no respiratory distress, clear to auscultation bilaterally Cardiovascular: Regular rate and rhythm, no murmurs rubs or gallops Abdomen: Soft, nontender, nondistended, no guarding, no rebound Back: No CVA tenderness Extremities: No clubbing cyanosis or edema Neurologic: No focal neurologic deficits, cranial nerves 2-12 intact, strength is 5/5 bilaterally, gait normal Skin: No rash <Po Crouch MD - Last Filed: 02/17/23 19:23> Course Course Course Narrative: RME - 63yo female with history of diabetes presenting for headache, vomiting, and dizziness that started today. She received her 5th COVID-19 vaccine on Friday. Sugar today was 189mg/dL. Denies abdominal pain. Plan: EKG, labs <MAGAN Ken - Last Filed: 02/17/23 15:55> Reevaluation(s) Reevaluation #1: Patient is currently feeling better. She denies headache. Her nausea is resolved. She feels less lightheaded after fluids. We discussed discharge instructions and reasons to return to the emergency department. <Po Crouch MD - Last Filed: 02/17/23 19:23> Time: 19:22 <Po Crouch MD - Last Filed: 02/17/23 19:23> Medications Administered Discontinued Medications Generic Name Dose Route Start Last Admin Trade Name Freq PRN Reason Stop Dose Admin Sodium Chloride 1,000 mls @ 999 mls/hr 02/17/23 18:00 02/17/23 19:10 Ns IV 02/17/23 19:00 Infused .Q1H1M LYLA Infusion Metoclopramide HCl 10 mg 02/17/23 17:59 02/17/23 18:10 Metoclopramide Hcl 10 Mg/2 Ml Vial IVPUSH 02/17/23 18:00 10 mg ONCE ONE Administration <MAGAN Ken - Last Filed: 02/17/23 15:55> Medications Administered Discontinued Medications Generic Name Dose Route Start Last Admin Trade Name Freq PRN Reason Stop Dose Admin Sodium Chloride 1,000 mls @ 999 mls/hr 02/17/23 18:00 02/17/23 19:10 Ns IV 02/17/23 19:00 Infused .Q1H1M LYLA Infusion Metoclopramide HCl 10 mg 02/17/23 17:59 02/17/23 18:10 Metoclopramide Hcl 10 Mg/2 Ml Vial IVPUSH 02/17/23 18:00 10 mg ONCE ONE Administration <Po Crouch MD - Last Filed: 02/17/23 19:23> Medical Decision Making Differential Diagnosis Differential Diagnoses: The differential diagnosis associated with the presentation includes (Vaccine reaction, lightheadedness, orthostatic hypotension, electrolyte abnormality, anemia, renal dysfunction, viral syndrome) <Po Crouch MD - Last Filed: 02/17/23 19:23> Lightheadedness, hyperglycemia in a diabetic, leukopenia, frontal headache <Po Crouch MD - Last Filed: 02/17/23 19:23> Admission/Observation Consideration of admission/observation: Escalation of care including admission/observation considered <Po Crouch MD - Last Filed: 02/17/23 19:23> Lab Data [facility] Lab Attestation statement: I reviewed the patient's lab results. <Po Crouch MD - Last Filed: 02/17/23 19:23> Result Diagrams: 02/17/23 16:49 02/17/23 16:49 <MAGAN Ken - Last Filed: 02/17/23 15:55> Labs: Lab Results 02/17/23 02/17/23 02/17/23 Range/Units 16:42 16:49 16:49 WBC 3.3 L (4.8-10.8) X10*3/uL RBC 4.00 L (4.20-5.50) X10*6/uL Hgb 12.0 (12.0-16.0) g/dl Hct 37.0 (37.0-47.0) % MCV 92.5 (80.0-98.0) fL MCH 30.0 (27.0-33.0) pg MCHC 32.4 (31.0-35.0) g/dl RDW 13.5 (11.0-16.0) % Plt Count 162 D (160-400) X10*3/uL MPV 10.2 (9.4-12.3) fL Immature Gran % (Auto) 0.0 (0.0-0.4) % Neut % (Auto) 66.7 (45-73) % Lymph % (Auto) 22.2 (20-40) % [place] % (Auto) 10.2 (2-11) % Eos % (Auto) 0.6 (0-4) % Baso % (Auto) 0.3 (0-2) % Lymph # (Auto) 0.7 L (1.2-4.9) X10*3/uL [place] # (Auto) 0.3 (0.1-1.2) X10*3/uL Eos # (Auto) 0.0 (0.0-0.4) X10*3/uL Baso # (Auto) 0.0 (0.0-0.2) X10*3/uL Abs Immat Gran (auto) 0.00 (0.00-0.03) X10*3/uL Absolute Neuts (auto) 2.2 (2.0-8.3) x10*3/uL Absolute Nucleated RBC 0.000 (0.0-0.012) X10*3/uL Nucleated RBC % (auto) 0.0 (0.0-0.2) /100WBC PT (10.0-13.1) SEC INR (0.9-1.1) APTT (26.0-36.4) SEC Sodium 137 (135-145) mmol/L Potassium 4.1 (3.3-5.1) mmol/L Chloride 101 (96-108) mmol/L Carbon Dioxide 29 (22-29) mmol/L Anion Gap 11 L (12-20) BUN 16 (9-16) mg/dL Creatinine 0.73 (0.5-1.4) mg/dL Estim Creat Clear Calc 62.5 Estimated GFR > 60 POC Glucose 209 H (60-115) mg/dL Random Glucose 212 H (60-115) mg/dL Calcium 8.7 D (8.4-10.2) mg/dL Magnesium 1.6 (1.6-2.6) mg/dL Total Bilirubin 0.6 (0.0-1.0) mg/dL Direct Bilirubin 0.2 (0.0-0.5) mg/dL AST 20 (5-31) U/L ALT 20 (0-31) U/L Alkaline Phosphatase 49 (39-117) U/L Troponin I High Sens (<3.5-17.0) ng/L Total Protein 6.2 L (6.5-8.0) g/dL Albumin 4.0 (3.5-5.0) g/dL COVID-19 (DAVIN) (Negative) COVID-19 Clin Com Influenza Type A (JANNA) (Negative) Influenza Type B (JANNA) (Negative) Influenza A & B Note 02/17/23 02/17/23 02/17/23 Range/Units 16:49 16:49 16:49 WBC (4.8-10.8) X10*3/uL RBC (4.20-5.50) X10*6/uL Hgb (12.0-16.0) g/dl Hct (37.0-47.0) % MCV (80.0-98.0) fL MCH (27.0-33.0) pg MCHC (31.0-35.0) g/dl RDW (11.0-16.0) % Plt Count (160-400) X10*3/uL MPV (9.4-12.3) fL Immature Gran % (Auto) (0.0-0.4) % Neut % (Auto) (45-73) % Lymph % (Auto) (20-40) % [place] % (Auto) (2-11) % Eos % (Auto) (0-4) % Baso % (Auto) (0-2) % Lymph # (Auto) (1.2-4.9) X10*3/uL [place] # (Auto) (0.1-1.2) X10*3/uL Eos # (Auto) (0.0-0.4) X10*3/uL Baso # (Auto) (0.0-0.2) X10*3/uL Abs Immat Gran (auto) (0.00-0.03) X10*3/uL Absolute Neuts (auto) (2.0-8.3) x10*3/uL Absolute Nucleated RBC (0.0-0.012) X10*3/uL Nucleated RBC % (auto) (0.0-0.2) /100WBC PT 10.6 (10.0-13.1) SEC INR 0.9 (0.9-1.1) APTT 31.8 (26.0-36.4) SEC Sodium (135-145) mmol/L Potassium (3.3-5.1) mmol/L Chloride (96-108) mmol/L Carbon Dioxide (22-29) mmol/L Anion Gap (12-20) BUN (9-16) mg/dL Creatinine (0.5-1.4) mg/dL Estim Creat Clear Calc Estimated GFR POC Glucose (60-115) mg/dL Random Glucose (60-115) mg/dL Calcium (8.4-10.2) mg/dL Magnesium (1.6-2.6) mg/dL Total Bilirubin (0.0-1.0) mg/dL Direct Bilirubin (0.0-0.5) mg/dL AST (5-31) U/L ALT (0-31) U/L Alkaline Phosphatase (39-117) U/L Troponin I High Sens < 2.7 (<3.5-17.0) ng/L Total Protein (6.5-8.0) g/dL Albumin (3.5-5.0) g/dL COVID-19 (DAVIN) (Negative) COVID-19 Clin Com Influenza Type A (JANNA) Negative (Negative) Influenza Type B (JANNA) Negative (Negative) Influenza A & B Note See Note 02/17/23 Range/Units 16:49 WBC (4.8-10.8) X10*3/uL RBC (4.20-5.50) X10*6/uL Hgb (12.0-16.0) g/dl Hct (37.0-47.0) % MCV (80.0-98.0) fL MCH (27.0-33.0) pg MCHC (31.0-35.0) g/dl RDW (11.0-16.0) % Plt Count (160-400) X10*3/uL MPV (9.4-12.3) fL Immature Gran % (Auto) (0.0-0.4) % Neut % (Auto) (45-73) % Lymph % (Auto) (20-40) % [place] % (Auto) (2-11) % Eos % (Auto) (0-4) % Baso % (Auto) (0-2) % Lymph # (Auto) (1.2-4.9) X10*3/uL [place] # (Auto) (0.1-1.2) X10*3/uL Eos # (Auto) (0.0-0.4) X10*3/uL Baso # (Auto) (0.0-0.2) X10*3/uL Abs Immat Gran (auto) (0.00-0.03) X10*3/uL Absolute Neuts (auto) (2.0-8.3) x10*3/uL Absolute Nucleated RBC (0.0-0.012) X10*3/uL Nucleated RBC % (auto) (0.0-0.2) /100WBC PT (10.0-13.1) SEC INR (0.9-1.1) APTT (26.0-36.4) SEC Sodium (135-145) mmol/L Potassium (3.3-5.1) mmol/L Chloride (96-108) mmol/L Carbon Dioxide (22-29) mmol/L Anion Gap (12-20) BUN (9-16) mg/dL Creatinine (0.5-1.4) mg/dL Estim Creat Clear Calc Estimated GFR POC Glucose (60-115) mg/dL Random Glucose (60-115) mg/dL Calcium (8.4-10.2) mg/dL Magnesium (1.6-2.6) mg/dL Total Bilirubin (0.0-1.0) mg/dL Direct Bilirubin (0.0-0.5) mg/dL AST (5-31) U/L ALT (0-31) U/L Alkaline Phosphatase (39-117) U/L Troponin I High Sens (<3.5-17.0) ng/L Total Protein (6.5-8.0) g/dL Albumin (3.5-5.0) g/dL COVID-19 (DAVIN) Negative (Negative) COVID-19 Clin Com See Note Influenza Type A (JANNA) (Negative) Influenza Type B (JANNA) (Negative) Influenza A & B Note <MAGAN Ken - Last Filed: 02/17/23 15:55> Lab Results 02/17/23 02/17/23 02/17/23 Range/Units 16:42 16:49 16:49 WBC 3.3 L (4.8-10.8) X10*3/uL RBC 4.00 L (4.20-5.50) X10*6/uL Hgb 12.0 (12.0-16.0) g/dl Hct 37.0 (37.0-47.0) % MCV 92.5 (80.0-98.0) fL MCH 30.0 (27.0-33.0) pg MCHC 32.4 (31.0-35.0) g/dl RDW 13.5 (11.0-16.0) % Plt Count 162 D (160-400) X10*3/uL MPV 10.2 (9.4-12.3) fL Immature Gran % (Auto) 0.0 (0.0-0.4) % Neut % (Auto) 66.7 (45-73) % Lymph % (Auto) 22.2 (20-40) % [place] % (Auto) 10.2 (2-11) % Eos % (Auto) 0.6 (0-4) % Baso % (Auto) 0.3 (0-2) % Lymph # (Auto) 0.7 L (1.2-4.9) X10*3/uL [place] # (Auto) 0.3 (0.1-1.2) X10*3/uL Eos # (Auto) 0.0 (0.0-0.4) X10*3/uL Baso # (Auto) 0.0 (0.0-0.2) X10*3/uL Abs Immat Gran (auto) 0.00 (0.00-0.03) X10*3/uL Absolute Neuts (auto) 2.2 (2.0-8.3) x10*3/uL Absolute Nucleated RBC 0.000 (0.0-0.012) X10*3/uL Nucleated RBC % (auto) 0.0 (0.0-0.2) /100WBC PT (10.0-13.1) SEC INR (0.9-1.1) APTT (26.0-36.4) SEC Sodium 137 (135-145) mmol/L Potassium 4.1 (3.3-5.1) mmol/L Chloride 101 (96-108) mmol/L Carbon Dioxide 29 (22-29) mmol/L Anion Gap 11 L (12-20) BUN 16 (9-16) mg/dL Creatinine 0.73 (0.5-1.4) mg/dL Estim Creat Clear Calc 62.5 Estimated GFR > 60 POC Glucose 209 H (60-115) mg/dL Random Glucose 212 H (60-115) mg/dL Calcium 8.7 D (8.4-10.2) mg/dL Magnesium 1.6 (1.6-2.6) mg/dL Total Bilirubin 0.6 (0.0-1.0) mg/dL Direct Bilirubin 0.2 (0.0-0.5) mg/dL AST 20 (5-31) U/L ALT 20 (0-31) U/L Alkaline Phosphatase 49 (39-117) U/L Troponin I High Sens (<3.5-17.0) ng/L Total Protein 6.2 L (6.5-8.0) g/dL Albumin 4.0 (3.5-5.0) g/dL COVID-19 (DAVIN) (Negative) COVID-19 Clin Com Influenza Type A (JANNA) (Negative) Influenza Type B (JANNA) (Negative) Influenza A & B Note 02/17/23 02/17/23 02/17/23 Range/Units 16:49 16:49 16:49 WBC (4.8-10.8) X10*3/uL RBC (4.20-5.50) X10*6/uL Hgb (12.0-16.0) g/dl Hct (37.0-47.0) % MCV (80.0-98.0) fL MCH (27.0-33.0) pg MCHC (31.0-35.0) g/dl RDW (11.0-16.0) % Plt Count (160-400) X10*3/uL MPV (9.4-12.3) fL Immature Gran % (Auto) (0.0-0.4) % Neut % (Auto) (45-73) % Lymph % (Auto) (20-40) % [place] % (Auto) (2-11) % Eos % (Auto) (0-4) % Baso % (Auto) (0-2) % Lymph # (Auto) (1.2-4.9) X10*3/uL [place] # (Auto) (0.1-1.2) X10*3/uL Eos # (Auto) (0.0-0.4) X10*3/uL Baso # (Auto) (0.0-0.2) X10*3/uL Abs Immat Gran (auto) (0.00-0.03) X10*3/uL Absolute Neuts (auto) (2.0-8.3) x10*3/uL Absolute Nucleated RBC (0.0-0.012) X10*3/uL Nucleated RBC % (auto) (0.0-0.2) /100WBC PT 10.6 (10.0-13.1) SEC INR 0.9 (0.9-1.1) APTT 31.8 (26.0-36.4) SEC Sodium (135-145) mmol/L Potassium (3.3-5.1) mmol/L Chloride (96-108) mmol/L Carbon Dioxide (22-29) mmol/L Anion Gap (12-20) BUN (9-16) mg/dL Creatinine (0.5-1.4) mg/dL Estim Creat Clear Calc Estimated GFR POC Glucose (60-115) mg/dL Random Glucose (60-115) mg/dL Calcium (8.4-10.2) mg/dL Magnesium (1.6-2.6) mg/dL Total Bilirubin (0.0-1.0) mg/dL Direct Bilirubin (0.0-0.5) mg/dL AST (5-31) U/L ALT (0-31) U/L Alkaline Phosphatase (39-117) U/L Troponin I High Sens < 2.7 (<3.5-17.0) ng/L Total Protein (6.5-8.0) g/dL Albumin (3.5-5.0) g/dL COVID-19 (DAVIN) (Negative) COVID-19 Clin Com Influenza Type A (JANNA) Negative (Negative) Influenza Type B (JANNA) Negative (Negative) Influenza A & B Note See Note 02/17/23 Range/Units 16:49 WBC (4.8-10.8) X10*3/uL RBC (4.20-5.50) X10*6/uL Hgb (12.0-16.0) g/dl Hct (37.0-47.0) % MCV (80.0-98.0) fL MCH (27.0-33.0) pg MCHC (31.0-35.0) g/dl RDW (11.0-16.0) % Plt Count (160-400) X10*3/uL MPV (9.4-12.3) fL Immature Gran % (Auto) (0.0-0.4) % Neut % (Auto) (45-73) % Lymph % (Auto) (20-40) % [place] % (Auto) (2-11) % Eos % (Auto) (0-4) % Baso % (Auto) (0-2) % Lymph # (Auto) (1.2-4.9) X10*3/uL [place] # (Auto) (0.1-1.2) X10*3/uL Eos # (Auto) (0.0-0.4) X10*3/uL Baso # (Auto) (0.0-0.2) X10*3/uL Abs Immat Gran (auto) (0.00-0.03) X10*3/uL Absolute Neuts (auto) (2.0-8.3) x10*3/uL Absolute Nucleated RBC (0.0-0.012) X10*3/uL Nucleated RBC % (auto) (0.0-0.2) /100WBC PT (10.0-13.1) SEC INR (0.9-1.1) APTT (26.0-36.4) SEC Sodium (135-145) mmol/L Potassium (3.3-5.1) mmol/L Chloride (96-108) mmol/L Carbon Dioxide (22-29) mmol/L Anion Gap (12-20) BUN (9-16) mg/dL Creatinine (0.5-1.4) mg/dL Estim Creat Clear Calc Estimated GFR POC Glucose (60-115) mg/dL Random Glucose (60-115) mg/dL Calcium (8.4-10.2) mg/dL Magnesium (1.6-2.6) mg/dL Total Bilirubin (0.0-1.0) mg/dL Direct Bilirubin (0.0-0.5) mg/dL AST (5-31) U/L ALT (0-31) U/L Alkaline Phosphatase (39-117) U/L Troponin I High Sens (<3.5-17.0) ng/L Total Protein (6.5-8.0) g/dL Albumin (3.5-5.0) g/dL COVID-19 (DAVIN) Negative (Negative) COVID-19 Clin Com See Note Influenza Type A (JANNA) (Negative) Influenza Type B (JANNA) (Negative) Influenza A & B Note <Po Crouch MD - Last Filed: 02/17/23 19:23> Independent Interpretation I performed an independent interpretation of an: EKG (Normal sinus rhythm heart rate 66, no acute ST elevations or depressions, normal intervals) <Po Crouch MD - Last Filed: 02/17/23 19:23> Independent Historian Clinical information obtained from an independent historian. History obtained from or confirmed by: Spouse <Po Crouch MD - Last Filed: 02/17/23 19:23> Tests considered The following testing was considered but not selected: CT scan head <Po Crouch MD - Last Filed: 02/17/23 19:23> Prescription Management I considered prescription management with: Pain Medication <Po Crouch MD - Last Filed: 02/17/23 19:23> Chronic Conditions Patient?s care impacted by: Diabetes <Po Crouch MD - Last Filed: 02/17/23 19:23> Discharge Plan Discharge Clinical Impression: Dizziness, Headache <MAGAN Ken - Last Filed: 02/17/23 15:55> Patient Disposition: Home, Self-Care <MAGAN Ken - Last Filed: 02/17/23 15:55> Instructions: Acute Headache (DC), Dizziness (ED) <MAGAN Ken - Last Filed: 02/17/23 15:55> Prescriptions: New ondansetron 4 mg tablet,disintegrating 4 mg PO Q8H PRN (Reason: nausea and vomiting) Qty: 10 0RF No Action (DME) blood sugar diagnostic Strip See Rx Instructions Not Applicable .MEDSUPPLY Qty: 100 1RF Rx Instructions: Once a day glipizide 10 mg tablet 10 mg PO BID 90 Days Qty: 180 0RF lisinopril 2.5 mg tablet 2.5 mg PO DAILY 90 Days Qty: 90 0RF simvastatin 40 mg tablet 40 mg PO BEDTIME 90 Days Qty: 90 0RF (DME) lancets 28 gauge misc See Rx Instructions topical .MEDSUPPLY Qty: 100 3RF Rx Instructions: As directed prednisone 20 mg tablet 20 mg PO DAILY 5 Days Qty: 5 0RF doxycycline hyclate 100 mg capsule 100 mg PO BID 7 Days Qty: 14 0RF meclizine 12.5 mg tablet 25 mg PO BID 15 Days Qty: 60 0RF pioglitazone [Actos] 30 mg tablet 30 mg PO DAILY 90 Days Qty: 90 0RF bisacodyl 5 mg tablet,delayed release (DR/EC) 10 mg PO DAILY docusate sodium 100 mg capsule 100 mg PO BEDTIME Qty: 30 6RF polyethylene glycol 3350 [Miralax] 17 gram powder in packet 17 g PO DAILY Qty: 100 3RF <MAGAN Ken - Last Filed: 02/17/23 15:55> Referrals: Mary Pina MD [Primary Care Provider] - 3 days <MAGAN Ken - Last Filed: 02/17/23 15:55>
--- NOTE | 2023-02-17 15:54 | ECG_ITS ---
Test Reason : DIZZY Blood Pressure : / mmHG Vent. Rate : 066 BPM Atrial Rate : 066 BPM P-R Int : 186 ms QRS Dur : 084 ms QT Int : 406 ms P-R-T Axes : 029 036 014 degrees QTc Int : 425 ms Normal sinus rhythm Normal ECG No previous ECGs available Referred By: Aida Green Electronically Signed By:ETHAN BUNCH
[2023-02-17 16:34] VITALS: BP 126/57; PULSE 68; RESP 16; O2SAT 97
[2023-02-17 16:45] LABS: Glucose, Whole Blood 209 mg/dL (60-115)
[2023-02-17 16:56] LABS: MANUAL DIFF FLAG NO
[2023-02-17 16:57] LABS: Basophils Percent Auto 0.3 % (0-2); Eosinophils Percent Auto 0.6 % (0-4); Lymphocytes Absolute Auto 0.7 X10*3/uL (1.2-4.9); Lymphocytes Percent Auto 22.2 % (20-40); Mean Corpuscular HGB Conc 32.4 g/dl (31.0-35.0); Mean Corpuscular Volume 92.5 fL (80.0-98.0); Mean Platelet Volume 10.2 fL (9.4-12.3); Monocytes Absolute Auto 0.3 X10*3/uL (0.1-1.2); Monocytes Percent Auto 10.2 % (2-11); Neutrophils Absolute Auto 2.2 x10*3/uL (2.0-8.3); Neutrophils Percent Auto 66.7 % (45-73); Platelet Count 162 X10*3/uL (160-400); Red Cell Distribution Width 13.5 % (11.0-16.0); White Blood Count 3.3 X10*3/uL (4.8-10.8)
[2023-02-17 17:03] LABS: INTERNATIONAL NORM RATIO 0.9 (0.9-1.1); Prothrombin Time 10.6 SEC (10.0-13.1)
[2023-02-17 17:05] LABS: Partial Thromboplastin Time 31.8 SEC (26.0-36.4)
[2023-02-17 17:14] LABS: COVID-19 Test Negative (Negative); IDNOW Serial# 08D9AD1C; IDNOW Serial# BCCEAD1C; Influenza A Negative (Negative); Influenza B2 Negative (Negative)
[2023-02-17 17:21] LABS: Alanine Aminotransferase 20 U/L (0-31); Alkaline Phosphatase 49 U/L (39-117); Anion Gap 11 (12-20); Aspartate Amino Transferase 20 U/L (5-31); Bilirubin Direct 0.2 mg/dL (0.0-0.5); Bilirubin Total 0.6 mg/dL (0.0-1.0); Blood Urea Nitrogen 16 mg/dL (9-16); Calcium 8.7 mg/dL (8.4-10.2); Carbon Dioxide 29 mmol/L (22-29); Chloride 101 mmol/L (96-108); Creatinine Clr Calc Pharmacy 62.5; Estimated Glomerular Filt Rate > 60; Glucose Random 212 mg/dL (60-115); Magnesium 1.6 mg/dL (1.6-2.6); Potassium 4.1 mmol/L (3.3-5.1); Sodium 137 mmol/L (135-145); Total Protein 6.2 g/dL (6.5-8.0)
[2023-02-17 17:36] LABS: Troponin-I High Sensitivity < 2.7 ng/L (<3.5-17.0)
[2023-02-17 18:00] VITALS: BP 135/73; PULSE 70; RESP 18; TEMP 37.1; O2SAT 96
[2023-02-17] MEDS: 0.9 % Sodium Chloride 1,000 ML 999 ML IV (18:05)
--- NOTE | 2023-02-17 18:07 | PC.NURSE ---
20G IV PLACED IN RIGHT AC, SECURED WITH TEGADERM AND TAPE INFUSING 1L NS PER ORDER.
[2023-02-17] MEDS: Metoclopramide HCl 10 MG/2 ML VIAL IVPUSH (18:10)
== END 2023-02-17 19:45 | disposition home or self-care (01) ==
PROVIDERS: Physician Assistant; Emergency Provider Emergency Medicine; PCP Internal Medicine
DX: R42 Dizziness and giddiness (principal); R51.9 Headache, unspecified; R11.0 Nausea; Z20.822 Contact with and (suspected) exposure to COVID-19; E11.9 Type 2 diabetes mellitus without complications; E78.5 Hyperlipidemia, unspecified; Z79.02 Long term (current) use of antithrombotics/antiplatelets; Z79.899 Other long term (current) drug therapy
CPT/HCPCS: 36415; 80048; 80076; 82947; 83735; 84484; 85025; 85610; 85730; 87502; 87635; 93005; 96361; 96374; 99284; J2765

== ENCOUNTER 2023-02-21 11:11 | Outpatient (REF) | payer OTHER, SELFPAY ==
[2023-02-21 14:45] LABS: Influenza A PCR NEGATIVE (Negative); Influenza B PCR NEGATIVE (Negative); Resp Syncy Virus RNA Qual PCR NEGATIVE (Negative); SARS COV2 PCR INHOUSE NEGATIVE (Negative)
== END 2023-02-21 11:12 | disposition home or self-care (01) ==
LOC: HO.LAB 11:11
PROVIDERS: Visit Provider Nurse Practitioner Family
DX: R09.89 Other specified symptoms and signs involving the circulatory and respiratory systems (principal); Z20.822 Contact with and (suspected) exposure to COVID-19
CPT/HCPCS: 0241U

== ENCOUNTER 2023-04-18 09:23 | Outpatient (REF) | payer OTHER, SELFPAY | END 2023-04-18 09:24 | disposition home or self-care (01) | LOC: HO.LAB 09:23 | PROVIDERS: Visit Provider Internal Medicine | DX: Z13.89 Encounter for screening for other disorder (principal) ==

== ENCOUNTER 2023-05-13 12:44 | Outpatient (AMB) | payer OTHER, SELFPAY ==
--- NOTE | 2023-05-13 12:52 | AM.OFFWIN_ITS ---
Intake Vital Signs 05/13/23 12:54 BP 120/76 Blood Pressure Location Rt brachial Position Sitting Pulse 80 Pulse Source Pulse Oximeter Pulse Oximetry (%) 94 Oxygen Delivery Method Room Air Intake Visit Reasons: EP LT leg redness (lobby) Intake Note: Patient her for swelling in left leg which has been like this for 3 weeks, she states swelling as gone down a bit and she also states she has been having chest pain. Patient Tobacco Use Status: Never used Tobacco Allergies No Known Allergies [No Known Allergies*] Allergy (Verified 05/13/23 12:54) Do you need a note to return to daycare/school/sports/work: No HPI HPI Comments History of Present Illness Details 63-year-old female that presents with bilateral leg swelling. Patient states for the past 3 weeks she has experienced bilateral lower leg swelling. She attempted using compression socks with some relief. She denies fevers chills chest pain shortness of breath, calf tenderness. She states that the swelling is mostly improved in her right lower leg and moderately improved in the left. [facility] Medical History Breast cancer in female Diabetes Elevated cholesterol Tubular adenoma Surgical History History of lumpectomy of left breast Hx of colonoscopy Family History Father Cancer Mother Stroke CVD (cardiovascular disease) Social History Household Members: Spouse Housing: House Alcohol intake: never Patient Tobacco Use Status: Never used Tobacco e-Cigarette/Vaping Use: Never Used Current occupational status: employed Cognitive needs: No Hearing needs: No Vision needs: Yes Review of Systems Const All systems reviewed & are unremarkable except as noted in HPI and below Denies fever(s), Denies headache(s) and Denies weakness Eyes Reports no additional complaints ENT Reports no additional complaints and Denies headache(s) Card Reports no additional complaints, Denies chest pain, Reports leg edema and Denies dyspnea Resp Denies cough and Denies dyspnea GI Denies abdominal pain, Denies nausea and Denies vomiting Denies urinary frequency and Denies dysuria Musc Reports no additional complaints Neuro Denies headache(s) and Denies weakness Psych Reports no additional complaints Endo Reports no additional complaints Physical Exam Vital Signs: Last Vital Signs Pulse 80 05/13/23 12:54 BP 120/76 05/13/23 12:54 Pulse Ox 94 05/13/23 12:54 Oxygen Delivery Method Room Air 05/13/23 12:54 Const General: cooperative, no acute distress and alert Orientation/consciousness: patient oriented x3 Limitations: no limitations HEENT Head: Yes normal to inspection Ears: hearing grossly normal bilaterally and external ears normal General nose exam: Normal external nose present Eyes General: appearance normal, both eyes and all related structures Neck Neck: Yes normal visual inspection Chest Chest palpation & inspection: normal inspection of the chest Resp Effort & Inspection: normal respiratory effort, able to speak in complete sentences and no audible wheezes Auscultation: clear to auscultation bilaterally Cardio Other: 1+ lower extremity edema bilaterally Rate: regular rate Rhythm: regular rhythm GI Inspection: Yes normal to inspection Palpation (GI): Soft to palpation and nontender Skin General skin exam: no rashes or lesions noted Neuro General: patient oriented x3 Psych Appearance: grossly normal Mental Status: mental status grossly normal Speech and movement: Normal speech and movement present Affect: normal affect Attitude: cooperative Thought process: Normal thought process present Thought content: Normal thought content present Assessment & Plan Assessment & Plan (1) Leg swelling: Code(s): M79.89 - Other specified soft tissue disorders Plan 63-year-old female that presents with bilateral leg swelling VSS. On exam patient is insulin oriented no acute distress. Exam is notable for 1+ lower extremity edema bilaterally nonpitting. No evidence of erythema warmth or cellulitis. At this time given the absence of chest pain shortness of breath clinical signs of DVT recommend symptomatic treatment utilizing compression stockings and elevation. She patient's symptoms worsen recommend patient be seen evaluated emergency department. Discharge instructions, follow up and treatment are discussed with patient in my usual fashion. Alternatives in treatment are also discussed. The patient will return for worsening symptoms or as needed. Advised that any labs/imaging ordered will be followed up on and contact made if further treatment needed. Counseled that patient's condition may require further evaluation and/or treatment. Symptoms of concern for worsening disorder discussed in detail in my customary manner. Patient does verbalize understanding of the plan, there are no apparent barriers to communication. The patient is given the opportunity to ask questions and have them answered to his/her satisfaction Patient Instructions: You seen evaluated there is improved slightly. Received examination. At this time region of the exact cause the leg swelling could be due to fluid back up in your legs from an incompetent valves in your veins. Recommend compression stockings and elevation. If he develops chest pain shortness of breath or any other concerning symptoms please present to the emergency department. Coding Level of Care Code Est Pt Level 3 (78521) Diagnoses Leg swelling M79.89
[2023-05-13 12:54] VITALS: BP 120/76; PULSE 80; O2SAT 94
== END 2023-05-13 13:36 | disposition home or self-care (01) ==
PROVIDERS: PCP Internal Medicine; Visit Provider Physician Assistant
DX: M79.89 Other specified soft tissue disorders (principal)
CPT/HCPCS: 99213

== ENCOUNTER 2023-05-19 08:25 | Outpatient (AMB) | payer OTHER, SELFPAY ==
--- NOTE | 2023-05-19 08:44 | A.OFFVIS_ITS ---
Intake Vital Signs 05/19/23 08:46 Height 5 ft Weight 140 lb 3.424 oz BMI 27.4 BP 133/65 Blood Pressure Location Lt brachial Position Sitting Pulse 77 Intake Visit Reasons: 1 yr follow up Intake Note: Yohan presents in office as a est.patient for a 1yr f/u for constipation PT CC:pt reports having black /greenish stools pt denies any other GI Issues Chemical Strength Tester Required: No Accompanied by: Self / Same As Patient Allergies No Known Allergies [No Known Allergies*] Allergy (Verified 05/19/23 08:44) HPI 1 yr follow up HPI Details LAST VISIT Constipation Patient states that she does not like to take pills and takes one-day she will take Colace and other days she will take Senokot. I will have her take MiraLax. Patient is agreeable and it states that this will be easier for her. Patient can take this every day. She will call me if she will have any concerns or if she will continue to be constipated. GERD (gastroesophageal reflux disease) Patient denies acid reflux, dyspepsia, dysphagia or odynophagia. Patient states that she is trying to avoid any dietary triggers. Patient was encouraged to continue that. Patient was encouraged to stay upright for minimum 3 hours after meals. I will see her in 1 year, sooner on as needed basis. Patient is agreeable to this plan and verbalizes understanding of instructions. She was given the opportunity to ask questions and all questions answered. ? Thank you for allowing me to participate in her care Plan Medications New polyethylene glycol 3350 (Miralax) 17 grams PO DAILY 100 ea 3RF TODAY'S VISIT Patient is here today for follow-up. Patient reports that she has been moving her bowels, however he does not move them every day. Patient states that when she is constipated her bowels are small and hard. Patient reports and occasionally her stools are green. Patient is no longer using MiraLax. States when she was using MiraLax she was able to move her bowels better. Patient reports that couple weeks ago she started with bilateral lower extremity edema. Seen in urgent care on May 13. Patient also reports chest pressure with and without exertion. Patient states that she felt like someone was squeezing her chest. Today patient denies any chest pain, shortness of breath with or without exertion. Patient denies dyspepsia, dysphagia or odynophagia. Denies melena, hematochezia, unintentional weight loss or ribbon like stools. [facility] Medical History Breast cancer in female Diabetes Elevated cholesterol Tubular adenoma Surgical History History of lumpectomy of left breast Hx of colonoscopy Family History Father Cancer Mother Stroke CVD (cardiovascular disease) Social History Household Members: Spouse Housing: House Alcohol intake: never Patient Tobacco Use Status: Never used Tobacco e-Cigarette/Vaping Use: Never Used Current occupational status: employed Cognitive needs: No Hearing needs: No Vision needs: Yes Review of Systems Const Denies weight gain and Denies weight loss ENT Reports no additional complaints, Denies dysphagia and Denies odynophagia Card Reports no additional complaints Resp Reports no additional complaints GI Denies abdominal pain, Denies belching, Denies melena, Denies bloating, Denies change in bowel habits, Reports constipation, Denies dysphagia, Denies excessive flatus, Denies dyspepsia, Denies heartburn, Denies diarrhea, Denies loose stools, Denies nausea, Denies odynophagia and Denies vomiting Reports no additional complaints Musc Reports no additional complaints Neuro Reports no additional complaints Psych Reports no additional complaints Endo Reports no additional complaints Physical Exam Vital Signs: Last Vital Signs Pulse 77 05/19/23 08:46 BP 133/65 05/19/23 08:46 BMI result Body Mass Index 27.4 Const General: healthy appearing, no acute distress and well developed Nutritional Appearance: well nourished Orientation/consciousness: patient oriented x3 HEENT Head: Yes normal to inspection, Yes normocephalic and Yes atraumatic Face and sinus: Yes normal facial exam Mouth: Normal oral and palatal mucosa present Throat: Yes posterior oropharynx normal, Yes tonsils normal and Yes uvula midline Eyes General: appearance normal, both eyes and all related structures Neck Neck: Yes normal visual inspection, Yes full ROM and Yes trachea midline Thyroid: Thyroid normal Resp Effort & Inspection: normal respiratory effort, able to speak in complete sentences, no tracheal deviation and symmetric chest movement Auscultation: clear to auscultation bilaterally Cardio Rate: regular rate Heart sounds: S1 normal heart sound present and S2 normal heart sound present GI Inspection: Yes normal to inspection and No distended Palpation (GI): Soft to palpation, not firm, nontender and No hepatosplenomegaly present Auscultation: normal bowel sounds General: Yes no CVA tenderness Back/Spine/Pelvis Back: no CVA tenderness Skin General skin exam: elasticity normal, turgor normal and dry skin Neuro General: patient oriented x3 Psych Appearance: grossly normal Mental Status: mental status grossly normal Speech and movement: Normal speech and movement present Affect: normal affect Assessment & Plan Assessment & Plan (1) Constipation: Code(s): K59.00 - Constipation, unspecified Qualifiers: Constipation type: slow transit constipation Qualified Code(s): K59.01 - Slow transit constipation Plan: Patient was encouraged to start taking MiraLax daily. Patient was also encouraged to increase activity to promote better bowel motility. (2) GERD (gastroesophageal reflux disease): Code(s): K21.9 - Gastro-esophageal reflux disease without esophagitis Qualifiers: Esophagitis presence: esophagitis presence not specified Qualified Code(s): K21.9 - Gastro-esophageal reflux disease without esophagitis Plan: Patient reports that she no longer has acid reflux. Not taking anything for it. Reports having chest pressure and tightness like feeling. Will send her to see Cardiology to rule out CAD. Risk factors diabetes, hypercholesteremia. I will see patient in 6 months, sooner on as needed basis. Patient is agreeable to this plan and verbalizes understanding of instructions. She was given the opportunity to ask questions and all questions answered. Thank you for allowing me to participate in her care Orders: Referrals Cardiology Referral R07.9 - Chest pain, unspecified, R60.0 - Localized edema Medications: Refilled polyethylene glycol 3350 (Miralax) 17 grams PO DAILY 100 ea 3RF Discontinued ondansetron Discontinued Reason: Patient no longer taking 4 mg PO Q8H PRN 10 tabs 0RF nausea and vomiting Coding Level of Care Code Est Pt Level 3 (98222) Diagnoses Constipation K59.01 Constipation type: slow transit constipation GERD (gastroesophageal reflux disease) K21.9 Esophagitis presence: esophagitis presence not specified Time Spent (min) 30 Comment 20 minutes spent with patient and additional 10 minutes spent reviewing her records
[2023-05-19 08:46] VITALS: BP 133/65; PULSE 77; BMI 27.4
== END 2023-05-19 11:25 | disposition home or self-care (01) ==
PROVIDERS: PCP Internal Medicine; Visit Provider Nurse Practitioner Family
DX: K59.01 Slow transit constipation (principal); K21.9 Gastro-esophageal reflux disease without esophagitis
CPT/HCPCS: 99213

== ENCOUNTER → 2023-05-19 08:25 | Outpatient (BNVA) | payer OTHER, SELFPAY | PROVIDERS: PCP Internal Medicine; Visit Provider Nurse Practitioner Family | DX: K59.01 Slow transit constipation (principal); K21.9 Gastro-esophageal reflux disease without esophagitis | CPT/HCPCS: 99212 ==

== ENCOUNTER 2023-07-19 09:25 | Outpatient (REF) | payer OTHER, SELFPAY ==
[2023-07-19 11:27] LABS: Alanine Aminotransferase 15 U/L (0-31); Albumin Level 4.1 g/dL (3.5-5.0); Alkaline Phosphatase 55 U/L (39-117); Anion Gap 11 (12-20); Aspartate Amino Transferase 17 U/L (5-31); Bilirubin Total 0.7 mg/dL (0.0-1.0); Blood Urea Nitrogen 14 mg/dL (9-16); Calcium 9.4 mg/dL (8.4-10.2); Carbon Dioxide 28 mmol/L (22-29); Chloride 107 mmol/L (96-108); Estimated Glomerular Filt Rate > 60; Glucose Random 116 mg/dL (60-115); Potassium 3.6 mmol/L (3.3-5.1); Sodium 142 mmol/L (135-145); Total Protein 6.8 g/dL (6.5-8.0)
[2023-07-19 11:33] LABS: Estimated Average Glucose 189 mg/dL; Hemoglobin A1c % 8.2 % (<6.0)
== END 2023-07-19 09:26 | disposition home or self-care (01) ==
LOC: HO.HMGCLDS 09:25
PROVIDERS: PCP Internal Medicine; Visit Provider Internal Medicine
DX: E13.9 Other specified diabetes mellitus without complications (principal); E78.9 Disorder of lipoprotein metabolism, unspecified
CPT/HCPCS: 36415; 80053; 83036

== ENCOUNTER 2023-07-22 14:47 | Outpatient (AMB) | payer OTHER, SELFPAY ==
--- NOTE | 2023-07-22 14:50 | A.OFFPC_ITS ---
Vital Signs 07/22/23 14:51 Height 5 ft Weight 144 lb BMI 28.1 BP 120/56 L Blood Pressure Location Rt brachial Position Sitting Pulse 66 Pulse Source Pulse Oximeter Pulse Oximetry (%) 96 Oxygen Delivery Method Room Air Intake Visit Reasons: 3m follow up Allergies No Known Allergies [No Known Allergies*] Allergy (Verified 07/22/23 14:50) Medication List - Last Reconciled 07/22/23 by Mary Pina MD blood sugar diagnostic Once a day cetirizine 10 mg PO DAILY PRN 30 days docusate sodium 100 mg PO BEDTIME glipizide 10 mg PO BID 90 days lancets As directed lisinopril 2.5 mg PO DAILY 90 days pioglitazone (Actos) 30 mg PO DAILY 90 days polyethylene glycol 3350 (Miralax) 17 grams PO DAILY simvastatin 40 mg PO BEDTIME 90 days Tobacco use date assessed: 07/22/23 Fall risk assessment: No Falls in past year Last assessed Fall Risk: 07/22/23 Dental Screening Dental Screen Date: 07/22/23 Did you have a dental visit in the last 12 months?: Yes Did you have a dental problem in the last 6 months where you did not have access to dental care?: No Was dental information given to patient?: Patient has dentist HPI 3m follow up HPI Details Patient is a 63-year-old female came in today for her follow-up appointment.? Diabetes mellitus:? Patient is on glipizide to 10 mg b.i.d. She is also taking Actos 30 mg.? Her hemoglobin A1c is 8.2- Patient started having swelling of her ankles, she has appointment with the Cardiology coming up next week for evaluation of her cardiac functions At this time her swelling is stable she has mild pitting edema ankles, there is no shortness of breath however she does complain palpitations off and on We did the EKG today which shows normal sinus rhythm no acute findings. Continue lisinopril 2.5 mg daily as well.? Lipid disorder:? Patient is on simvastatin 40 mg tolerating medication no side effects. Follow-up 3 months Need to lose weight BMI is 28.1 [facility] Medical History Tubular adenoma Elevated cholesterol Diabetes Breast cancer in female Surgical History Hx of colonoscopy History of lumpectomy of left breast Family History Father Cancer Mother Stroke CVD (cardiovascular disease) Social History Household Members: Spouse Housing: House Alcohol intake: never Patient Tobacco Use Status: Never used Tobacco e-Cigarette/Vaping Use: Never Used Current occupational status: employed Cognitive needs: No Hearing needs: No Vision needs: Yes Questionnaire PHQ-9 Over the last 2 weeks, how often have you been bothered by any of the following problems? 1. Little interest or pleasure in doing things: not at all 2. Feeling down, depressed, or hopeless: several days 3. Trouble falling or staying asleep, or sleeping too much: several days 4. Feeling tired or having little energy: not at all 5. Poor appetite or overeating: not at all 6. Feeling bad about yourself - or that you are a failure or have let yourself or your family down: not at all 7. Trouble concentrating on things, such as reading the newspaper or watching television: not at all 8. Moving or speaking so slowly that other people could have noticed. Or the opposite - being so fidgety or restless that you have been moving around a lot more than usual: not at all 9. Thoughts that you would be better off or of hurting yourself in some way: not at all Total score: 2 Depression Screening Interpretation: Negative 13767 - PHQ-9 Billing: Yes Source: Developed by Drs. Rowdy Chamberlain, Ekaterina Ruth, Juan J Boyer and colleagues, with an educational sherry from [employer]. Thrive Questionnaire Date Thrive assessed: 07/22/23 I am a: Patient What is your living situation today?: I have a steady place to live Within the past 12 months, did the food you bought not last and you didn't have the money to get more?: Never true Within the past 12 months, did you worry whether your food would run out before you got money to buy more?: Never true Do you have trouble paying for medicines?: No Do you have trouble getting transportation to medical appointments?: No Do you have trouble paying your heating and electricity bill?: No Do you have trouble taking care of your child, family member or friend?: No Do you have trouble with day-to-day activities such as bathing, preparing meals, shopping, managing finances, etc.?: No Are you currently unemployed and looking for a job?: No Are you interested in more education?: No AUDIT C Alcohol Use Questionnaire (AUDIT-C) 1. How often do you have a drink containing alcohol?: Never 3. How often do you have six or more drinks on one occasion?: Never Total Score: 0 Score Reviewed/Action Taken: Yes ATIYA-7 AMB Questionnaire ATIYA-7 Date ATIYA - 7 assessed: 07/22/23 Feeling nervous, anxious, or on edge: 0 = Not at all Not being able to stop or control worryin = Not at all Worrying too much about different things: 0 = Not at all Trouble relaxin = Several days Being so restless that it is hard to sit still: 0 = Not at all Becoming easily annoyed or irritable: 0 = Not at all Feeling afraid as if something awful might happen: 0 = Not at all Total ATIYA-7 score (0-4 normal; 5-9 mild; 10-14 moderate; 15-21 severe): 1 Source: Developed by Drs. Rowdy Chamberlain, Ekaterina Ruth, Juan J Boyer and colleagues, with an educational sherry from [employer]. ATIYA-7 Assessment Billing ATIYA-7 Assessment Tool: ATIYA-7 Assessment 90497 Review of Systems Const Denies chills and Denies fever(s) ENT Denies epistaxis and Denies nasal discharge Card Denies chest pain Resp Denies chest congestion, Denies cough and Denies hemoptysis GI Denies diarrhea and Denies nausea Skin/Breast Denies rash Neuro Reports no additional complaints Psych Reports no additional complaints Endo Reports no additional complaints Physical exam (Primary Care) Vital Signs: Last Vital Signs Pulse 66 07/22/23 14:51 BP 120/56 L 07/22/23 14:51 Pulse Ox 96 07/22/23 14:51 Oxygen Delivery Method Room Air 07/22/23 14:51 BMI result Body Mass Index 28.1 Tobacco/Smoking Status: Tobacco use Status Tobacco use date assessed 07/22/23 07/22/23 14:56 Patient Tobacco Use Status Never used Tobacco 07/22/23 14:56 e-Cigarette/Vaping Use Never Used 07/22/23 14:56 PHQ-9: PHQ-9 Score PHQ-9: Total score 2 07/22/23 15:14 Depression Screening Interpretation: Negative Thrive Assessment: Date of Thrive Assessment Date Thrive assessed 07/22/23 07/22/23 15:14 Const General: cooperative, comfortable and no acute distress Orientation/consciousness: patient oriented x3 HENMT Head: Yes normocephalic Eyes General: appearance normal, both eyes and all related structures Neck Neck: Yes supple Resp Effort & Inspection: normal respiratory effort, no cough and no stridor Cardio Rhythm: regular rhythm Heart sounds: S1 normal heart sound present and S2 normal heart sound present Skin General skin exam: turgor normal Neuro General: patient oriented x3, tone normal and moves all extremities Extrem Right lower extremity: no edema Left lower extremity: no edema Office Procedures EKG [id number], Complete Assessment and Plan Assessment & Plan (1) Diabetes 1.5, managed as type 2: Code(s): E13.9 - Other specified diabetes mellitus without complications (2) Lipid disorder: Code(s): E78.9 - Disorder of lipoprotein metabolism, unspecified (3) Swelling of both lower extremities: Code(s): M79.89 - Other specified soft tissue disorders (4) Palpitations: Code(s): R00.2 - Palpitations Plan Patient is a 63-year-old female came in today for her follow-up appointment.? Diabetes mellitus:? Patient is on glipizide to 10 mg b.i.d. She is also taking Actos 30 mg.? Her hemoglobin A1c is 8.2- Patient started having swelling of her ankles, she has appointment with the Cardiology coming up next week for evaluation of her cardiac functions At this time her swelling is stable she has mild pitting edema ankles, there is no shortness of breath however she does complain palpitations off and on We did the EKG today which shows normal sinus rhythm no acute findings. Continue lisinopril 2.5 mg daily as well.? Lipid disorder:? Patient is on simvastatin 40 mg tolerating medication no side effects. Follow-up 3 months Need to lose weight BMI is 28.1 Orders: Orders AMB EKG-In Office Today R00.2 - Palpitations Coding Level of Care Code Est Pt Level 4 (18439) Diagnoses Diabetes 1.5, managed as type 2 E13.9 Lipid disorder E78.9 Swelling of both lower extremities M79.89 Palpitations R00.2 CPT Codes EKG - CPT: 99642-[id number], Complete ([id number]) Additional Codes ATIYA-7 Assessment Billing - ATIYA-7 Assessment Tool: ATIYA-7 Assessment 99270 ([id number])
[2023-07-22 14:51] VITALS: BP 120/56; PULSE 66; O2SAT 96; BMI 28.1
== END 2023-07-22 15:33 | disposition home or self-care (01) ==
PROVIDERS: PCP Internal Medicine; Visit Provider Internal Medicine
DX: E13.9 Other specified diabetes mellitus without complications (principal); E78.9 Disorder of lipoprotein metabolism, unspecified; M79.89 Other specified soft tissue disorders; R00.2 Palpitations
CPT/HCPCS: 93000; 99214

== ENCOUNTER 2023-07-29 10:18 | Outpatient (AMB) | payer OTHER, SELFPAY ==
[2023-07-29 10:24] VITALS: BP 126/60; PULSE 64; BMI 27.6
--- NOTE | 2023-07-29 10:24 | A.OFFVIS_ITS ---
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: No Accompanied by: Self / Same As Patient Allergies No Known Allergies [No Known Allergies*] Allergy (Verified 07/29/23 10:27) Medication List - Last Reconciled 07/29/23 by Scott Toussaint MD blood sugar diagnostic Once a day cetirizine 10 mg PO DAILY PRN 30 days docusate sodium 100 mg PO BEDTIME glipizide 10 mg PO BID 90 days lancets As directed lisinopril 2.5 mg PO DAILY 90 days pioglitazone (Actos) 30 mg PO DAILY 90 days polyethylene glycol 3350 (Miralax) 17 grams PO DAILY simvastatin 40 mg PO BEDTIME 90 days HPI HPI Comments History of Present Illness Details Yohan has been referred for evaluation by the Gastroenterology nurse practitioner. Patient does not have any known cardiac issues including coronary artery disease, myocardial infarction. She states for the last few weeks she has been noticing swelling everywhere, most prominently her lower extremities as well as face. The GI notes states that she has been describing chest pain but when I questioned her numerous times, she stating no. Hence not clear. Otherwise, she also feels heart fluttering randomly. History of breast cancer about 10 years ago and she states she also got radiation for the same. Has diabetes on medications. [facility] Medical History Tubular adenoma Elevated cholesterol Diabetes Breast cancer in female Surgical History Hx of colonoscopy History of lumpectomy of left breast Family History Father Cancer Mother Stroke CVD (cardiovascular disease) Social History Household Members: Spouse Housing: House Alcohol intake: never Patient Tobacco Use Status: Never used Tobacco e-Cigarette/Vaping Use: Never Used Current occupational status: employed Cognitive needs: No Hearing needs: No Vision needs: Yes Review of Systems Const Denies chills, Denies daytime sleepiness, Denies fatigue, Denies fever(s), Denies frequent falls, Denies night sweats, Denies snoring, Denies weakness, Denies weight gain and Denies weight loss Eyes Denies loss of vision ENT Denies dizziness and Denies hearing loss Card Denies chest pain, Denies chest pain with activity, Denies syncope, Denies rapid heart rate, Denies edema, Denies claudication, Denies leg edema, Denies lightheadedness, Denies palpitations, Denies dyspnea, Denies dyspnea on exertion and Denies orthopnea Resp Denies cough, Denies excessive phlegm production, Denies dyspnea, Denies dyspnea on exertion, Denies snoring and Denies wheezing GI Denies abdominal pain, Denies hematochezia, Denies change in bowel habits, Denies change in stool character, Denies heartburn, Denies nausea and Denies vo miting Denies hematuria, Denies urinary frequency and Denies dysuria Musc Denies arthralgias, Denies muscle weakness, Denies numbness and Denies tingling Skin/Breast Denies nail changes and Denies rash Neuro Denies Abnormal speech present, Denies dizziness, Denies syncope, Denies frequent falls, Denies loss of vision, Denies memory loss, Denies numbness, Denies tingling and Denies weakness Psych Denies depression and Denies memory loss Endo Denies fatigue and Denies palpitations Aller/Immun Denies wheezing Physical Exam Vital Signs: Last Vital Signs Pulse 64 07/29/23 10:24 BP 126/60 07/29/23 10:24 BMI result Body Mass Index 27.6 Const General: comfortable and no acute distress Orientation/consciousness: patient oriented x3 HEENT Other: Unremarkable Head: Yes normal to inspection Neck Neck: Yes normal visual inspection Chest Chest palpation & inspection: normal inspection of the chest Resp Auscultation: clear to auscultation bilaterally Cardio Palpation: normal PMI Heart sounds: S1 normal heart sound present, S2 normal heart sound present, no gallops, no murmurs and no rubs GI Palpation (GI): Soft to palpation Back/Spine/Pelvis Other: unremarkable Skin General skin exam: no rashes or lesions noted Neuro General: patient oriented x3 Speech: No Abnormal speech present Extrem General: Yes normal to inspection Psych Mental Status: mental status grossly normal Assessment & Plan Assessment & Plan (1) Swelling of both lower extremities: Code(s): M79.89 - Other specified soft tissue disorders (2) Uncontrolled diabetes mellitus: (3) Precordial chest pain: Code(s): R07.2 - Precordial pain Plan EKG with sinus rhythm at 65/Min; nonspecific ST-T changes in the anterior chest leads, normal PA and corrected QT. Generalized swelling involving lower extremities and face, chest discomfort, diabetic, history of breast cancer. Will start with an echocardiogram and stress myocardial perfusion imaging study. Based on findings, will plan further care. Orders: Orders CA stress test Today R07.2 - Precordial pain CA echo transthoracic complete Today I25.10 - Atherosclerotic heart disease of [place] coronary artery without angina pectoris NM cardiolite stress test Today R07.2 - Precordial pain Coding Level of Care Code New Pt Level 4 (68744) Diagnoses Swelling of both lower extremities M79.89 Uncontrolled diabetes mellitus Precordial chest pain R07.2
== END 2023-07-29 10:50 | disposition home or self-care (01) ==
PROVIDERS: PCP Internal Medicine; Visit Provider Internal Medicine
DX: M79.89 Other specified soft tissue disorders (principal); R07.2 Precordial pain
CPT/HCPCS: 99204

== ENCOUNTER → 2023-07-29 10:18 | Outpatient (BNVA) | payer OTHER, SELFPAY | PROVIDERS: PCP Internal Medicine; Visit Provider Internal Medicine ==

== ENCOUNTER → 2023-09-08 07:44 | Outpatient (REF) | payer OTHER, SELFPAY ==
--- NOTE | ~2023-09-08 | NM_ITS ---
Exercise Myocardial perfusion study Indication: Precordial chest pain to evaluate for myocardial ischemia Technique: The patient was brought in for an exercise perfusion study on 09/08/2023. Patient performed exercise as per Kevan protocol and was injected 25 mCi of sestamibi was given intravenously one target HR was achieved. Images were obtained using the SPECT gamma camera interlaced with the gating device. Images were obtained in supine position. Resting perfusion study was performed on 09/09/2023. Patient was administered 25 mCi of sestamibi intravenously at rest. Images were then obtained in supine position. Images obtained with and without CT attenuation. Total DLP 80 mGy-cm Images were processed with the software and compared side to side in short axis, horizontal long axis and vertical long axis views. Findings: The stress perfusion study showed non attenuated images show minimal thinning of the apical wall of the LV myocardium. Remainder of the LV myocardium is normally perfused. Attenuation corrected images show similar findings.. The gated study shows normal LV systolic function with calculated LVEF of 73%. LV cavity is normal in size. The gated study shows normal systolic wall thickening and contraction of all segments. There is no transient ischemic dilation. Resting study shows both attenuated as well as non attenuated normal uptake of radiotracer in all segments of LV myocardium. Gating at rest reveals normal systolic wall motion with ejection fraction at 73%. The findings are consistent with likely normal myocardial perfusion. NM/NM cardiolite stress test Impression: 1. Likely normal myocardial perfusion 2. Gated LVEF is 73% 3. Transient ischemic dilatation not present Stress EKG is suggestive of ischemia
--- NOTE | 2023-09-08 07:48 | CA_ITS ---
Acquisition Time: 2023-09-08 08:30:50 Total Exercise Time: 00:07:11 Test Indications: CP Medications: SEE H Protocol: TRACEY Max HR: 151 BPM 96% of Pred: 156 BPM Max BP: 184/074 mmHG Max Work Load: 8.8 METS Exercise stress test exercise 7 min 11 sec of Tracey protocol achieving 96% MPHR, with mild SOB, no chest discomfort, with isolated PAC, with normotensive response to exercise, with [place] V5-V6. Nuclear images pending. Test reviewed with Dr. Worrell Referred By: Scott Toussaint Overread By: Marry Rutherford
== END ==
LOC: HO.CARD 07:44
PROVIDERS: PCP Internal Medicine; Visit Provider Internal Medicine
DX: R07.2 Precordial pain (principal)
CPT/HCPCS: 78452; 93017; A9500

== ENCOUNTER → 2023-09-08 07:48 | Outpatient (BNV) | payer OTHER, SELFPAY | PROVIDERS: PCP Internal Medicine; Visit Provider Nurse Practitioner | DX: R07.2 Precordial pain (principal) | CPT/HCPCS: 78452; 93016; 93018 ==

== ENCOUNTER → 2023-09-24 08:47 | Outpatient (REF) | payer OTHER, SELFPAY ==
--- NOTE | 2023-09-24 08:50 | CA_ITS ---
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 Study Quality: Adequate ECG Rhythm: Sinus Conclusions: - The left ventricular systolic function is normal. The calculated ejection fraction is 63% by biplane method. - No obvious valvular pathology seen on this study. Findings Left Ventricle Normal left ventricular cavity size. There is normal left ventricular wall thickness. The left ventricular systolic function is normal. The calculated ejection fraction is 63% by biplane method. There is no evidence of regional wall motion abnormalities. Diastolic function is normal for age. LV peak GLS -17.8%. Right Ventricle Normal right ventricular cavity size and systolic function. Atria Both atria are normal in size. Aortic Valve There is a normal trileaflet aortic valve. There is no aortic valve stenosis. There is no aortic valve regurgitation. Mitral Valve There is mild mitral annular calcification. There is no mitral valve regurgitation. There is no mitral valve stenosis. Pulmonic Valve The pulmonic valve is likely normal. Tricuspid Valve There is trace tricuspid valve regurgitation. Tricuspid regurgitation envelope is inadequate for calculation of right ventricular systolic pressure. Great Vessels The asc aorta is normal in size. Venous The inferior vena cava is normal in size and collapses greater than 50% with inspiration. Pericardium/Pleural There is no evidence of pericardial effusion. Prior Study Comparison No prior study available for comparison. Recommendations, Care & Conclusions No obvious valvular pathology seen on this study. Measurements 2D Linear Measurements IVSd: 1.01 0.6-0.9/0.6-1.0 cm LVIDd: 4.41 3.9-5.3/4.2-5.9 cm LVIDd Index: 2.71 2.4-3.2/2.2-3.1 cm/m2 LVIDs: 2.66 2.0-3.6 cm LVPWd: 0.82 0.7-1.1 cm LA Diam: 3.70 2.7-3.8/3.0-4.0 cm LAIDs Index: 2.27 1.5-2.3 cm/m2 LV Mass: 163.13 67-162/88-224 g LV Mass Index: 100.08 43-95/49-115 g/m2 LVOT Diam: 2.00 3.0+(-)1.3 cm 2D Systolic Function EF 4C: 61.50 >55% EF 2C: 63.10 >55% EF BiP: 62.80 >55% Mitral Valve MV Pk E: 0.85 MV PK A: 0.68 MV Decel Time: 181.00 E/A: 1.30 E'Lateral: 8.27 E'Medial: 5.11 E/E' Med: 16.70 E/E' Lat: 10.30 PHT: 53.00 MVA PHT: 4.15 Decel [place]: 4.70 Aortic Valve AoV Pk [place]: 1.25 AoV Mn [place]: 0.86 AoV VTI: 0.31 AoV Pk Grad: 6.00 Aov Mn Grad: 3.00 PORFIRIO Cont.VTI: 2.56 LVOT LVOT Pk [place]: 1.04 LVOT Mn [place]: 0.67 LVOT VTI: 0.25 LVOT Pk Grad: 4.00 LVOT Mn Grad: 2.00 LVOT Diam: 2.00 LVOT Area: 3.14 Diastolic Function MV Pk E: 0.85 MV Pk A: 0.68 E/A: 1.30 E'Medial: 5.11 E/E' Med: 16.70 E' Laterial: 8.27 E/E' Lat: 10.30 Right Ventricle TAPSE (mm): 19.50 TVS' [place]: 10.10 Tricuspid Valve RA Press: 3.00 Great Vessels Aorta Sinus of Valsalva: 3.26 2.0-3.[address] [place]: 2.55 1.7-3.4 cm Ao Asc: 3.40 2.1-3.4 cm Updated in Other Vendor System with Status of Final Scott Toussaint MD electronically signed on 09/24/2023 1:38:28 PM with status of Final
== END ==
LOC: HO.CARD 08:47
PROVIDERS: PCP Internal Medicine; Visit Provider Internal Medicine
DX: I25.10 Atherosclerotic heart disease of native coronary artery without angina pectoris (principal)
CPT/HCPCS: 93306; 93356

== ENCOUNTER → 2023-09-24 08:50 | Outpatient (BNV) | payer OTHER, SELFPAY | PROVIDERS: PCP Internal Medicine; Visit Provider Internal Medicine | DX: I25.10 Atherosclerotic heart disease of native coronary artery without angina pectoris (principal) | CPT/HCPCS: 93306 ==

== ENCOUNTER 2023-10-21 15:17 | Outpatient (AMB) | payer OTHER, SELFPAY ==
[2023-10-21 15:19] VITALS: BP 130/70; PULSE 67; O2SAT 97; BMI 28.7
--- NOTE | 2023-10-21 15:19 | MHC.PC.OV ---
Vital Signs 10/21/23 15:19 Height 5 ft Weight 147 lb 2 oz BMI 28.7 BP 130/70 Blood Pressure Location Rt brachial Position Sitting Pulse 67 Pulse Source Pulse Oximeter Pulse Oximetry (%) 97 Oxygen Delivery Method Room Air Intake Visit Reasons: annual PE Allergies No Known Allergies [No Known Allergies*] Allergy (Verified 10/21/23 15:22) Medication List - Last Reconciled 10/21/23 by Mary Pina MD cetirizine 10 mg PO DAILY PRN 30 days docusate sodium 100 mg PO BEDTIME FreeStyle Lite Strips (blood sugar diagnostic) Test blood sugar once a day NS glipizide 10 mg PO BID 90 days lancets As directed lisinopril 2.5 mg PO DAILY 90 days pioglitazone (Actos) 30 mg PO DAILY 90 days polyethylene glycol 3350 (Miralax) 17 grams PO DAILY simvastatin 40 mg PO BEDTIME 90 days Tobacco use date assessed: 10/21/23 Fall risk assessment: No Falls in past year Last assessed Fall Risk: 10/21/23 Dental Screening Dental Screen Date: 10/21/23 Did you have a dental visit in the last 12 months?: Yes Did you have a dental problem in the last 6 months where you did not have access to dental care?: No Was dental information given to patient?: Patient has dentist HPI annual PE HPI Details Patient is 63-year-old female came in today for physical examination Mammogram was early this year OBGYN established, breast exam through OBGYN Colonoscopy will be in 2023 Due for labs Overweight, need to lose weight Medication list reviewed Follow-up January Medical History Tubular adenoma Elevated cholesterol Diabetes Breast cancer in female Surgical History Hx of colonoscopy History of lumpectomy of left breast Family History Father Cancer Mother Stroke CVD (cardiovascular disease) Social History Household Members: Spouse Housing: House Alcohol intake: never Patient Tobacco Use Status: Never used Tobacco e-Cigarette/Vaping Use: Never Used Current occupational status: employed Cognitive needs: No Hearing needs: No Vision needs: Yes Questionnaire Thrive Questionnaire Date Thrive assessed: 07/22/23 AUDIT C Alcohol Use Questionnaire (AUDIT-C) 1. How often do you have a drink containing alcohol?: Never 3. How often do you have six or more drinks on one occasion?: Never Total Score: 0 Score Reviewed/Action Taken: Yes ATIYA-7 AMB Questionnaire ATIYA-7 Date ATIYA - 7 assessed: 07/22/23 Source: Developed by Drs. Rowdy Chamberlain, Ekaterina Ruth, Juan J Boyer and colleagues, with an educational sherry from [employer]. Review of Systems Const Denies chills, Denies fever(s) and Denies headache(s) Eyes Denies blurry vision ENT Denies headache(s), Denies nasal discharge, Denies nasal obstruction, Denies odynophagia and Denies sinus pain Card Denies chest pain at rest and Denies chest pain with activity Resp Denies cough and Denies hemoptysis GI Denies diarrhea, Denies odynophagia, Denies vomiting and Denies hematemesis Reports as per HPI Musc Denies abnormal gait Skin/Breast Reports as per HPI Neuro Denies Neuro-related abnormal movements, Denies Abnormal speech present, Denies abnormal gait, Denies headache(s) and Denies Sensory deficit (Neuro) Psych Denies mood swings and Denies paranoia Endo Reports as per HPI Chidi/Lymph Reports as per HPI Aller/Immun Reports as per HPI Physical exam (Primary Care) Vital Signs: Last Vital Signs Pulse 67 10/21/23 15:19 BP 130/70 10/21/23 15:19 Pulse Ox 97 10/21/23 15:19 Oxygen Delivery Method Room Air 10/21/23 15:19 BMI result Body Mass Index 28.7 Tobacco/Smoking Status: Tobacco use Status Tobacco use date assessed 10/21/23 10/21/23 15:24 Patient Tobacco Use Status Never used Tobacco 10/21/23 15:22 e-Cigarette/Vaping Use Never Used 10/21/23 15:22 Thrive Assessment: Date of Thrive Assessment Date Thrive assessed 07/22/23 10/21/23 15:22 Const General: cooperative, comfortable and no acute distress Orientation/consciousness: patient oriented x3 HENMT Head: Yes normocephalic and Yes atraumatic Eyes General: appearance normal, both eyes and all related structures Pupils: Equal, round and reactive pupils present EOM: EOMs intact bilaterally Neck Neck: Yes supple and No lymphadenopathy Thyroid: Thyroid normal Lymphatic: no lymphadenopathy noted Resp Effort & Inspection: normal respiratory effort and able to speak in complete sentences Auscultation: clear to auscultation bilaterally Cardio Heart sounds: S1 normal heart sound present and S2 normal heart sound present GI Palpation (GI): Soft to palpation and nontender Auscultation: normal bowel sounds General: Yes no CVA tenderness Back/Spine/Pelvis Back: no CVA tenderness Skin General skin exam: elasticity normal and turgor normal Neuro General: patient oriented x3 and gait normal Cranial nerves: Yes Equal, round and reactive pupils present Speech: No Abnormal speech present Sensory Exam: No Sensory deficit (Neuro) Coordination: tandem gait normal and Romberg test negative Extrem General: Yes normal exam except as noted and No edema Assessment and Plan Assessment & Plan (1) Encounter for general adult medical examination with abnormal findings: Code(s): Z00.01 - Encounter for general adult medical examination with abnormal findings (2) Diabetes 1.5, managed as type 2: Code(s): E13.9 - Other specified diabetes mellitus without complications (3) Lipid disorder: Code(s): E78.9 - Disorder of lipoprotein metabolism, unspecified (4) Environmental allergies: Code(s): Z91.09 - Other allergy status, other than to drugs and biological substances (5) Facial swelling: Code(s): R22.0 - Localized swelling, mass and lump, head (6) Ankle swelling: Code(s): M25.473 - Effusion, unspecified ankle Qualifiers: Laterality: unspecified laterality Qualified Code(s): M25.473 - Effusion, unspecified ankle Plan Patient is 63-year-old female came in today for physical examination Does individual medical problem has RV you assign to it Mammogram was early this year OBGYN established, breast exam through OBGYN Colonoscopy will be in 2023 Due for labs Overweight, need to lose weight does Patient has been experiencing swelling of her ankles and face off and on She had echocardiogram and stress test done which was within normal limit 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 I have added thyroid test to her labs Medication list reviewed Follow-up January Orders: Orders Hemoglobin A1c Today E13.9 - Other specified diabetes mellitus without complications, E78.9 - Disorder of lipoprotein metabolism, unspecified, Z00.01 - Encounter for general adult medical examination with abnormal findings LDL Cholesterol Direct Today E13.9 - Other specified diabetes mellitus without complications, E78.9 - Disorder of lipoprotein metabolism, unspecified, Z00.01 - Encounter for general adult medical examination with abnormal findings Microalbumin, Random (w Creat) Today E13.9 - Other specified diabetes mellitus without complications, E78.9 - Disorder of lipoprotein metabolism, unspecified, Z00.01 - Encounter for general adult medical examination with abnormal findings Vitamin D 25-OH (D2 and D3) Today M25.473 - Effusion, unspecified ankle, R22.0 - Localized swelling, mass and lump, head Vitamin B12 Today M25.473 - Effusion, unspecified ankle, R22.0 - Localized swelling, mass and lump, head Magnesium Today M25.473 - Effusion, unspecified ankle, R22.0 - Localized swelling, mass and lump, head Complete Blood Count Auto Diff Today E13.9 - Other specified diabetes mellitus without complications, E78.9 - Disorder of lipoprotein metabolism, unspecified, Z00.01 - Encounter for general adult medical examination with abnormal findings Comprehensive Met. Panel Today E13.9 - Other specified diabetes mellitus without complications, E78.9 - Disorder of lipoprotein metabolism, unspecified, Z00.01 - Encounter for general adult medical examination with abnormal findings TSH reflex Free T4 Today M25.473 - Effusion, unspecified ankle, R22.0 - Localized swelling, mass and lump, head Coding Level of Care Code Est Pt Prev Care 40-64y([id number]) Diagnoses Encounter for general adult medical examination with abnormal findings Z00.01 Diabetes 1.5, managed as type 2 E13.9 Lipid disorder E78.9 Environmental allergies Z91.09 Facial swelling R22.0 Ankle swelling, unspecified laterality M25.473 Laterality: unspecified laterality
== END 2023-10-21 16:32 | disposition home or self-care (01) ==
PROVIDERS: Visit Provider Internal Medicine
DX: Z00.01 Encounter for general adult medical examination with abnormal findings (principal); E13.9 Other specified diabetes mellitus without complications; E78.9 Disorder of lipoprotein metabolism, unspecified; Z91.09 Other allergy status, other than to drugs and biological substances; R22.0 Localized swelling, mass and lump, head; M25.473 Effusion, unspecified ankle
CPT/HCPCS: 99396

== ENCOUNTER 2023-10-22 06:49 | Outpatient (REF) | payer OTHER, SELFPAY ==
[2023-10-22 11:30] LABS: MANUAL DIFF FLAG NO
[2023-10-22 11:41] LABS: Basophils Percent Auto 0.6 % (0-2); Eosinophils Percent Auto 1.1 % (0-4); Hematocrit 38.1 % (37.0-47.0); Hemoglobin 12.2 g/dl (12.0-16.0); Imm Gran Abs Auto 0.01 X10*3/uL (0.00-0.03); Imm Gran Pct Auto 0.3 % (0.0-0.4); Lymphocytes Absolute Auto 1.4 X10*3/uL (1.2-4.9); Lymphocytes Percent Auto 39.7 % (20-40); Mean Corpuscular Volume 93.8 fL (80.0-98.0); Mean Platelet Volume 9.9 fL (9.4-12.3); Monocytes Absolute Auto 0.5 X10*3/uL (0.1-1.2); Monocytes Percent Auto 12.5 % (2-11); Neutrophils Absolute Auto 1.7 x10*3/uL (2.0-8.3); Neutrophils Percent Auto 45.8 % (45-73); Platelet Count 234 X10*3/uL (160-400); Red Blood Count 4.06 X10*6/uL (4.20-5.50); White Blood Count 3.6 X10*3/uL (4.8-10.8)
[2023-10-22 11:52] LABS: Estimated Average Glucose 203 mg/dL; Hemoglobin A1c % 8.7 % (<6.0)
[2023-10-22 12:17] LABS: Creatinine Urine 48.75 mg/dL; Microalbum/Creatinine Ratio Ur 16.4 ug/mg cr (<30)
[2023-10-22 12:28] LABS: Vitamin B12 519 pg/mL (200-900)
[2023-10-22 14:54] LABS: Alanine Aminotransferase 15 U/L (0-31); Albumin Level 4.1 g/dL (3.5-5.0); Alkaline Phosphatase 55 U/L (39-117); Anion Gap 14 (12-20); Aspartate Amino Transferase 18 U/L (5-31); Bilirubin Total 0.5 mg/dL (0.0-1.0); Blood Urea Nitrogen 10 mg/dL (9-16); Calcium 9.1 mg/dL (8.4-10.2); Carbon Dioxide 25 mmol/L (22-29); Chloride 104 mmol/L (96-108); Estimated Glomerular Filt Rate > 60; Glucose Random 292 mg/dL (60-115); Magnesium 1.9 mg/dL (1.6-2.6); Potassium 4.2 mmol/L (3.3-5.1); Sodium 139 mmol/L (135-145); Total Protein 6.9 g/dL (6.5-8.0)
[2023-10-22 15:12] LABS: TSH reflex Free T4 3.67 uIU/mL (0.32-4.0)
[2023-10-24 00:38] LABS: LDL Cholesterol Direct 69 mg/dL (<100)
[2023-10-28 18:23] LABS: Vitamin D 25-OH, D2 <4 ng/mL; Vitamin D 25-OH, D3 16 ng/mL; Vitamin D 25-OH, Total 16 ng/mL (30-100)
== END 2023-10-22 06:50 | disposition home or self-care (01) ==
LOC: HO.HMGCLDS 06:49
PROVIDERS: PCP Internal Medicine; Visit Provider Internal Medicine
DX: Z00.01 Encounter for general adult medical examination with abnormal findings (principal); E13.9 Other specified diabetes mellitus without complications; E78.9 Disorder of lipoprotein metabolism, unspecified; M25.473 Effusion, unspecified ankle
CPT/HCPCS: 36415; 80053; 82043; 82306; 82570; 82607; 83036; 83721; 83735; 84443; 85025

== ENCOUNTER 2023-11-12 08:31 | Outpatient (AMB) | payer OTHER, SELFPAY ==
--- NOTE | 2023-11-12 08:51 | A.OFFVIS_ITS ---
Intake Vital Signs 11/12/23 08:54 Height 5 ft Weight 142 lb 6.698 oz BMI 27.8 BP 126/62 Blood Pressure Location Rt brachial Position Sitting Pulse 76 Intake Visit Reasons: f/up mibi HS Intake Note: follow up [employer] Required: No Accompanied by: Self / Same As Patient Allergies No Known Allergies [No Known Allergies*] Allergy (Verified 11/12/23 08:54) Medication List - Last Reconciled 11/12/23 by Scott Toussaint MD cetirizine 10 mg PO DAILY PRN 30 days cholecalciferol (vitamin D3) 1,250 mcg PO QWEEK 3 months FreeStyle Lite Strips (blood sugar diagnostic) Test blood sugar once a day NS glipizide 10 mg PO BID 90 days lancets As directed lisinopril 2.5 mg PO DAILY 90 days pioglitazone (Actos) 30 mg PO DAILY 90 days polyethylene glycol 3350 (Miralax) 17 grams PO DAILY simvastatin 40 mg PO BEDTIME 90 days HPI HPI Comments History of Present Illness Details Yohan returns for follow-up. Recently seen in consultation. He was referred by GI nurse practitioner. She was complaining of swelling essentially all over the body including lower extremities as well as face. There was also question of chest pain but then when I asked the patient numerous times she had never had that symptom. History of breast cancer about 10 years ago and she got radiation for the same. Has diabetes medications. Since last seen, has done echocardiogram and stress test. [facility] Medical History Tubular adenoma Elevated cholesterol Diabetes Breast cancer in female Surgical History Hx of colonoscopy History of lumpectomy of left breast Family History Father Cancer Mother Stroke CVD (cardiovascular disease) Social History Household Members: Spouse Housing: House Alcohol intake: never Patient Tobacco Use Status: Never used Tobacco e-Cigarette/Vaping Use: Never Used Current occupational status: employed Cognitive needs: No Hearing needs: No Vision needs: Yes Review of Systems Const Denies weakness ENT Denies dizziness Card Denies chest pain, Denies chest pain with activity, Denies syncope, Denies rapid heart rate, Denies pedal edema, Denies edema, Denies leg edema, Denies lightheadedness, Denies palpitations, Denies dyspnea, Denies dyspnea on exertion and Denies orthopnea Resp Denies cough, Denies dyspnea and Denies dyspnea on exertion GI Denies hematochezia and Denies change in stool character Musc Denies abnormal gait, Denies muscle cramps, Denies muscle weakness, Denies numbness, Denies radiating pain into limb and Denies tingling Neuro Denies abnormal gait, Denies dizziness, Denies syncope, Denies numbness, Denies tingling and Denies weakness Endo Denies palpitations Physical Exam Vital Signs: Last Vital Signs Pulse 76 11/12/23 08:54 BP 126/62 11/12/23 08:54 BMI result Body Mass Index 27.8 Const General: comfortable and no acute distress Orientation/consciousness: patient oriented x3 HEENT Other: Unremarkable Head: Yes normal to inspection Neck Neck: Yes normal visual inspection Chest Chest palpation & inspection: normal inspection of the chest Resp Auscultation: clear to auscultation bilaterally Cardio Palpation: normal PMI Heart sounds: S1 normal heart sound present, S2 normal heart sound present, no gallops, no murmurs and no rubs GI Palpation (GI): Soft to palpation Back/Spine/Pelvis Other: unremarkable Skin General skin exam: no rashes or lesions noted Neuro General: patient oriented x3 Extrem Other: 1+ edema General: Yes normal to inspection Psych Mental Status: mental status grossly normal Assessment & Plan Assessment & Plan (1) Swelling of both lower extremities: Code(s): M79.89 - Other specified soft tissue disorders (2) Uncontrolled diabetes mellitus: Plan EKG with sinus rhythm at 65/Min; nonspecific ST-T changes in the anterior chest leads, normal [place] and corrected QT. Echocardiogram with LVEF of 63%. Peak global longitudinal strain 17.8%, within acceptable limits. No significant valvular issues. IVC normal in size with normal collapsibility. In the stress test, she was able to exercise for 8.8 Mets and reached target heart rate. Mild shortness of breath but no angina. Perfusion imaging unremarkable. Overall, no clear cardiac etiology for her generalized swelling. Other possibilities include nephrotic proteinuria but the albumin seems okay. With regard to thyroid function, it seems she had a TSH some shows okay. We also sent a free T3/T4 panel for completeness. Otherwise, generally swelling is not cardiac in nature. Patient will follow-up with PCP for further recommendation. Total time spent including review of data, counseling, documentation, coordination of care-32 minutes. Orders: Orders Triiodothyronine T3 Free Today E07.9 - Disorder of thyroid, unspecified Free T4 (Free Thyroxine) Today E07.9 - Disorder of thyroid, unspecified Coding Level of Care Code Est Pt Level 4 (90371) Diagnoses Swelling of both lower extremities M79.89 Uncontrolled diabetes mellitus
[2023-11-12 08:54] VITALS: BP 126/62; PULSE 76; BMI 27.8
== END 2023-11-12 09:08 | disposition home or self-care (01) ==
PROVIDERS: PCP Internal Medicine; Visit Provider Internal Medicine
DX: M79.89 Other specified soft tissue disorders (principal)
CPT/HCPCS: 99214

== ENCOUNTER 2023-11-12 08:31 | Outpatient (REF) | payer OTHER, SELFPAY ==
[2023-11-12 11:16] LABS: Free T4 (Free Thyroxine) 1.02 ng/dL (0.71-1.85)
[2023-11-14 01:28] LABS: Triiodothyronine T3 Free 3.7 pg/mL (2.3-4.2)
== END 2023-11-12 08:32 | disposition home or self-care (01) ==
LOC: HO.LAB 08:31
PROVIDERS: PCP Internal Medicine; Visit Provider Internal Medicine
DX: E07.9 Disorder of thyroid, unspecified (principal); M79.89 Other specified soft tissue disorders; E11.9 Type 2 diabetes mellitus without complications; Z79.899 Other long term (current) drug therapy
CPT/HCPCS: 36415; 84439; 84481; 99212

== ENCOUNTER 2023-11-18 10:48 | Outpatient (REF) | payer OTHER, SELFPAY ==
--- NOTE | ~2023-11-18 | MM_ITS ---
EXAMINATION: MM SCREENING DIGITAL BREAST TOMOSYNTHESIS, BILATERAL CLINICAL INFORMATION: Screening. Asymptomatic. The patient is status post left breast cancer surgery. COMPARISON: Mammography: This study is compared with prior exams dating back to 2018. TECHNIQUE: Digital breast tomosynthesis is performed in both the craniocaudal and mediolateral oblique views along with computer-aided detection (CAD). Synthesized 2D images are generated from the tomosynthesis. FINDINGS: There are scattered areas of fibroglandular density (ACR BI-RADS breast composition Category b). There are no significant masses, abnormal calcifications, or other abnormalities. There is a tissue marker present in the inferior aspect of the left breast from prior benign percutaneous biopsy. There are postsurgical changes in the upper outer quadrant of the left breast from prior breast cancer treatment. MM/MM tomosynthesis screening BI IMPRESSION: No mammographic evidence of malignancy. ASSESSMENT: BI-RADS BI-RADS 2 - Benign Findings RECOMMENDATION: Routine annual mammography screening. 1 year F/U This examination should not preclude the clinical evaluation of a suspicious palpable abnormality. This patient's information was entered into a reminder system with a target due date for their next mammogram.
== END 2023-11-18 10:49 | disposition home or self-care (01) ==
LOC: HO.MAMMO 10:48
PROVIDERS: PCP Internal Medicine; Visit Provider Internal Medicine
DX: Z12.31 Encounter for screening mammogram for malignant neoplasm of breast (principal)
CPT/HCPCS: 77063; 77067

== ENCOUNTER → 2023-11-18 11:00 | Outpatient (BNV) | payer OTHER, SELFPAY | PROVIDERS: PCP Internal Medicine; Visit Provider Radiology Diagnostic Radiology | DX: Z12.31 Encounter for screening mammogram for malignant neoplasm of breast (principal) | CPT/HCPCS: 77063; 77067 ==

== ENCOUNTER 2023-11-19 08:17 | Outpatient (AMB) | payer OTHER, SELFPAY ==
--- NOTE | 2023-11-19 08:29 | A.OFFVIS_ITS ---
Intake Vital Signs 11/19/23 08:33 Height 5 ft Weight 138 lb 14.259 oz BMI 27.1 BP 122/59 L Blood Pressure Location Rt brachial Position Sitting Pulse 75 Intake Visit Reasons: 6 month follow up Intake Note: Yohan presents in the office as a 6 month follow up. CC: No concerns today! Allergies No Known Allergies [No Known Allergies*] Allergy (Verified 11/12/23 08:54) HPI 6 month follow up HPI Details LAST VISIT Constipation Patient was encouraged to start taking MiraLax daily. Patient was also encouraged to increase activity to promote better bowel motility. GERD (gastroesophageal reflux disease) Patient reports that she no longer has acid reflux. Not taking anything for it. Reports having chest pressure and tightness like feeling. Will send her to see Cardiology to rule out CAD. Risk factors diabetes, hypercholesteremia. I will see patient in 6 months, sooner on as needed basis. Patient is agreeable to this plan and verbalizes understanding of instructions. She was given the opportunity to ask questions and all questions answered. ? Thank you for allowing me to participate in her care Plan Orders Referrals Cardiology Referral R07.9 - Chest pain, unspecified, R60.0 - Localized edema Medications Refilled polyethylene glycol 3350 (Miralax) 17 grams PO DAILY 100 ea 3RF Discontinued ondansetron Discontinued Reason: Patient no longer taking 4 mg PO Q8H PRN 10 tabs 0RF nausea and vomiting TODAY'S VISIT: Patient is here today for follow-up. Patient reports that she has been feeling well since last seen. Patient reports that she is avoiding dietary triggers and feels well. Admits to occasional postprandial abdominal bloating if eating too much. Patient denies any dyspepsia, dysphagia or odynophagia. Patient denies any dyspepsia, dysphagia or odynophagia. Patient denies any abdominal pain or discomfort. Denies any melena, hematochezia, unintentional weight loss or ribbon like stools. Patient gained 2 lb in 6 months. Reports lower extremity edema. Seen Cardiology rule out cardiac. Patient reports that bilateral lower extremities are swollen. Patient feels like her whole legs are bigger and heavier. [facility] Medical History Tubular adenoma Elevated cholesterol Diabetes Breast cancer in female Surgical History Hx of colonoscopy History of lumpectomy of left breast Family History Father Cancer Mother Stroke CVD (cardiovascular disease) Social History Household Members: Spouse Housing: House Alcohol intake: never Patient Tobacco Use Status: Never used Tobacco e-Cigarette/Vaping Use: Never Used Current occupational status: employed Cognitive needs: No Hearing needs: No Vision needs: Yes Review of Systems Const Denies weight gain and Denies weight loss ENT Reports no additional complaints, Denies dysphagia and Denies odynophagia Card Reports no additional complaints Resp Reports no additional complaints GI Denies abdominal pain, Denies belching, Denies melena, Denies bloating, Denies change in bowel habits, Denies dysphagia, Denies excessive flatus, Denies dyspepsia, Denies heartburn, Denies diarrhea, Denies loose stools, Denies nausea, Denies odynophagia and Denies vomiting Musc Reports no additional complaints Neuro Reports no additional complaints Psych Reports no additional complaints Endo Reports no additional complaints Physical Exam Vital Signs: Last Vital Signs Pulse 75 11/19/23 08:33 BP 122/59 L 11/19/23 08:33 BMI result Body Mass Index 27.1 Const General: healthy appearing, no acute distress and well developed Nutritional Appearance: well nourished Orientation/consciousness: patient oriented x3 Resp Effort & Inspection: normal respiratory effort, able to speak in complete sentences, no tracheal deviation and symmetric chest movement Auscultation: clear to auscultation bilaterally Cardio Rate: regular rate GI Inspection: Yes normal to inspection and No distended Palpation (GI): Soft to palpation, not firm, nontender and No hepatosplenomegaly present Auscultation: normal bowel sounds General: Yes no CVA tenderness Back/Spine/Pelvis Back: no CVA tenderness Skin General skin exam: elasticity normal, turgor normal and dry skin Neuro General: patient oriented x3 Extrem Other: Bilateral lower extremity edema Psych Appearance: grossly normal Mental Status: mental status grossly normal Assessment & Plan Assessment & Plan (1) Swelling of both lower extremities: Code(s): M79.89 - Other specified soft tissue disorders (2) Constipation: Code(s): K59.00 - Constipation, unspecified Qualifiers: Constipation type: slow transit constipation Qualified Code(s): K59.01 - Slow transit constipation (3) GERD (gastroesophageal reflux disease): Code(s): K21.9 - Gastro-esophageal reflux disease without esophagitis Qualifiers: Esophagitis presence: esophagitis presence not specified Qualified Code(s): K21.9 - Gastro-esophageal reflux disease without esophagitis Plan Continue avoiding dietary triggers and late night snacking. Continue MiraLax on as needed basis. Patient will return in June so we can discuss going for colonoscopy. Patient had 1 tubular adenoma without high-grade dysplasia or carcinoma. Recommendation was made for 3-5 years surveillance. Referral send to vascular surgeon. Patient reports to have swelling in her bilateral lower extremities. Patient is agreeable to this plan and verbalizes understanding of instructions she was given the opportunity to ask questions and all questions answered. Thank you for allowing me to participate in her care Orders: Referrals Vascular Surgery Referral M79.89 - Other specified soft tissue disorders Coding Level of Care Code Est Pt Level 3 (85695) Diagnoses Swelling of both lower extremities M79.89 Slow transit constipation K59.01 Constipation type: slow transit constipation Gastroesophageal reflux disease, unspecified whether esophagitis present K21.9 Esophagitis presence: esophagitis presence not specified Time Spent (min) 25 Comment 15 minutes spent with patient and additional 10 minutes spent reviewing her records
[2023-11-19 08:33] VITALS: BP 122/59; PULSE 75; BMI 27.1
== END 2023-11-19 09:00 | disposition home or self-care (01) ==
PROVIDERS: PCP Internal Medicine; Visit Provider Nurse Practitioner Family
DX: M79.89 Other specified soft tissue disorders (principal); K59.01 Slow transit constipation; K21.9 Gastro-esophageal reflux disease without esophagitis
CPT/HCPCS: 99213

== ENCOUNTER → 2023-11-19 08:17 | Outpatient (BNVA) | payer OTHER, SELFPAY | PROVIDERS: PCP Internal Medicine; Visit Provider Nurse Practitioner Family | DX: K59.01 Slow transit constipation (principal); K21.9 Gastro-esophageal reflux disease without esophagitis; M79.89 Other specified soft tissue disorders | CPT/HCPCS: 99212 ==

== ENCOUNTER 2024-01-20 09:47 | Outpatient (AMB) | payer MEDICARE, OTHER, SELFPAY ==
--- NOTE | 2024-01-20 09:49 | MHC.PC.OV ---
Vital Signs 01/20/24 09:50 Height 5 ft Weight 139 lb 4 oz BMI 27.2 BP 122/60 Blood Pressure Location Rt brachial Position Sitting Pulse 73 Pulse Source Pulse Oximeter Pulse Oximetry (%) 97 Oxygen Delivery Method Room Air Intake Visit Reasons: 6m follow up Allergies No Known Allergies [No Known Allergies*] Allergy (Verified 01/20/24 09:50) Medication List - Last Reconciled 01/20/24 by Mary Pina MD FreeStyle Lite Strips (blood sugar diagnostic) Test blood sugar once a day NS glipizide 10 mg PO BID 90 days lancets As directed lisinopril 2.5 mg PO DAILY 90 days pioglitazone (Actos) 30 mg PO DAILY 90 days polyethylene glycol 3350 (Miralax) 17 grams PO DAILY simvastatin 40 mg PO BEDTIME 90 days Tobacco use date assessed: 01/20/24 Fall risk assessment: No Falls in past year Last assessed Fall Risk: 01/20/24 Dental Screening Dental Screen Date: 01/20/24 HPI 6m follow up HPI Details Patient is a 64-year-old female came in today for her follow-up appointment.? Diabetes mellitus:? Patient is on glipizide to 10 mg b.i.d. She is also taking Actos 30 mg.? Due for labs Continued to slight swelling of ankles, patient has appointment with the vascular specialist next month Continue lisinopril 2.5 mg daily as well.? Lipid disorder:? Patient is on simvastatin 40 mg tolerating medication no side effects. Follow-up May, labs to be done today [facility] Medical History Tubular adenoma Elevated cholesterol Diabetes Breast cancer in female Surgical History Hx of colonoscopy History of lumpectomy of left breast Family History Father Cancer Mother Stroke CVD (cardiovascular disease) Social History Household Members: Spouse Housing: House Alcohol intake: never Patient Tobacco Use Status: Never used Tobacco e-Cigarette/Vaping Use: Never Used service: No Current occupational status: employed Cognitive needs: No Hearing needs: No Vision needs: Yes Questionnaire Thrive Questionnaire Date Thrive assessed: 07/22/23 AUDIT C Alcohol Use Questionnaire (AUDIT-C) 1. How often do you have a drink containing alcohol?: Never 3. How often do you have six or more drinks on one occasion?: Never Total Score: 0 Score Reviewed/Action Taken: Yes ATIYA-7 AMB Questionnaire ATIYA-7 Date ATIYA - 7 assessed: 07/22/23 Source: Developed by Drs. Rowdy Chamberlain, Ekaterina Ruth, Juan J Boyer and colleagues, with an educational sherry from [employer]. Review of Systems Const Denies chills and Denies fever(s) ENT Denies epistaxis and Denies nasal discharge Card Denies chest pain Resp Denies chest congestion, Denies cough and Denies hemoptysis GI Denies diarrhea and Denies nausea Skin/Breast Denies rash Neuro Reports no additional complaints Psych Reports no additional complaints Endo Reports no additional complaints Physical exam (Primary Care) Vital Signs: Last Vital Signs Pulse 73 01/20/24 09:50 BP 122/60 01/20/24 09:50 Pulse Ox 97 01/20/24 09:50 Oxygen Delivery Method Room Air 01/20/24 09:50 BMI result Body Mass Index 27.2 Tobacco/Smoking Status: Tobacco use Status Tobacco use date assessed 01/20/24 01/20/24 09:53 Patient Tobacco Use Status Never used Tobacco 01/20/24 09:53 e-Cigarette/Vaping Use Never Used 01/20/24 09:53 Thrive Assessment: Date of Thrive Assessment Date Thrive assessed 07/22/23 01/20/24 09:53 Const General: cooperative, comfortable and no acute distress Orientation/consciousness: patient oriented x3 HENIA Head: Yes normocephalic Eyes General: appearance normal, both eyes and all related structures Neck Neck: Yes supple Resp Effort & Inspection: normal respiratory effort, no cough and no stridor Cardio Rhythm: regular rhythm Heart sounds: S1 normal heart sound present and S2 normal heart sound present Skin General skin exam: turgor normal Neuro General: patient oriented x3, tone normal and moves all extremities Extrem Right lower extremity: no edema Left lower extremity: no edema Assessment and Plan Assessment & Plan (1) Diabetes 1.5, managed as type 2: Code(s): E13.9 - Other specified diabetes mellitus without complications (2) Lipid disorder: Code(s): E78.9 - Disorder of lipoprotein metabolism, unspecified (3) Environmental allergies: Code(s): Z91.09 - Other allergy status, other than to drugs and biological substances (4) Swelling of both lower extremities: Code(s): M79.89 - Other specified soft tissue disorders Plan Patient is a 64-year-old female came in today for her follow-up appointment.? Diabetes mellitus:? Patient is on glipizide to 10 mg b.i.d. She is also taking Actos 30 mg.? Due for labs Continued to slight swelling of ankles, patient has appointment with the vascular specialist next month Continue lisinopril 2.5 mg daily as well.? Lipid disorder:? Patient is on simvastatin 40 mg tolerating medication no side effects. Follow-up May, labs to be done today Orders: Orders Microalbumin, Random (w Creat) Today E13.9 - Other specified diabetes mellitus without complications, E78.9 - Disorder of lipoprotein metabolism, unspecified, Z91.09 - Other allergy status, other than to drugs and biological substances LDL Cholesterol Direct Today E13.9 - Other specified diabetes mellitus without complications, E78.9 - Disorder of lipoprotein metabolism, unspecified, Z91.09 - Other allergy status, other than to drugs and biological substances Hemoglobin A1c Today E13.9 - Other specified diabetes mellitus without complications, E78.9 - Disorder of lipoprotein metabolism, unspecified, Z91.09 - Other allergy status, other than to drugs and biological substances Complete Blood Count Auto Diff Today E13.9 - Other specified diabetes mellitus without complications, E78.9 - Disorder of lipoprotein metabolism, unspecified, Z91.09 - Other allergy status, other than to drugs and biological substances Comprehensive Met. Panel Today E13.9 - Other specified diabetes mellitus without complications, E78.9 - Disorder of lipoprotein metabolism, unspecified, Z91.09 - Other allergy status, other than to drugs and biological substances Medications: Changed From FreeStyle Lite Strips (blood sugar diagnostic) Test blood sugar once a day 100 ea 1RF NS E13.9 - Other specified diabetes mellitus without complications To FreeStyle Lite Strips (blood sugar diagnostic) BID 100 ea 1RF NS E13.9 - Other specified diabetes mellitus without complications Refilled glipizide 10 mg PO BID 180 tabs 0RF 90 days lisinopril 2.5 mg PO DAILY 90 tabs 0RF 90 days pioglitazone (Actos) 30 mg PO DAILY 90 tabs 0RF 90 days simvastatin 40 mg PO BEDTIME 90 tabs 0RF 90 days lancets As directed 100 ea 3RF E13.9 - Other specified diabetes mellitus without complications Coding Level of Care Code Est Pt Level 4 (26546) Diagnoses Diabetes 1.5, managed as type 2 E13.9 Lipid disorder E78.9 Environmental allergies Z91.09 Swelling of both lower extremities M79.89
[2024-01-20 09:50] VITALS: BP 122/60; PULSE 73; O2SAT 97; BMI 27.2
== END 2024-01-20 10:14 | disposition home or self-care (01) ==
PROVIDERS: PCP Internal Medicine; Visit Provider Internal Medicine
DX: E13.9 Other specified diabetes mellitus without complications (principal); E78.9 Disorder of lipoprotein metabolism, unspecified; Z91.09 Other allergy status, other than to drugs and biological substances; M79.89 Other specified soft tissue disorders
CPT/HCPCS: 99214

== ENCOUNTER 2024-01-20 10:16 | Outpatient (REF) | payer MEDICARE, SELFPAY ==
[2024-01-20 13:28] LABS: MANUAL DIFF FLAG NO
[2024-01-20 13:51] LABS: Basophils Percent Auto 0.5 % (0-2); Eosinophils Percent Auto 0.7 % (0-4); Hematocrit 42.2 % (37.0-47.0); Hemoglobin 13.7 g/dl (12.0-16.0); Imm Gran Abs Auto 0.01 X10*3/uL (0.00-0.03); Imm Gran Pct Auto 0.2 % (0.0-0.4); Lymphocytes Absolute Auto 1.7 X10*3/uL (1.2-4.9); Lymphocytes Percent Auto 39.4 % (20-40); Mean Corpuscular HGB Conc 32.5 g/dl (31.0-35.0); Mean Corpuscular Hemoglobin 30.1 pg (27.0-33.0); Mean Corpuscular Volume 92.7 fL (80.0-98.0); Mean Platelet Volume 10.2 fL (9.4-12.3); Monocytes Absolute Auto 0.4 X10*3/uL (0.1-1.2); Monocytes Percent Auto 8.7 % (2-11); Neutrophils Absolute Auto 2.2 x10*3/uL (2.0-8.3); Neutrophils Percent Auto 50.5 % (45-73); Platelet Count 241 X10*3/uL (160-400); Red Blood Count 4.55 X10*6/uL (4.20-5.50); Red Cell Distribution Width 13.4 % (11.0-16.0); White Blood Count 4.3 X10*3/uL (4.8-10.8)
[2024-01-20 13:52] LABS: Estimated Average Glucose 209 mg/dL; Hemoglobin A1c % 8.9 % (<6.0)
[2024-01-20 14:24] LABS: Creatinine Urine 141.23 mg/dL; Microalbum/Creatinine Ratio Ur 22.6 ug/mg cr (<30)
[2024-01-20 14:27] LABS: Alanine Aminotransferase 16 U/L (0-31); Albumin Level 4.5 g/dL (3.5-5.0); Alkaline Phosphatase 56 U/L (39-117); Anion Gap 15 (12-20); Aspartate Amino Transferase 17 U/L (5-31); Bilirubin Total 0.6 mg/dL (0.0-1.0); Blood Urea Nitrogen 13 mg/dL (9-16); Calcium 9.8 mg/dL (8.4-10.2); Carbon Dioxide 26 mmol/L (22-29); Chloride 104 mmol/L (96-108); Estimated Glomerular Filt Rate > 60; Glucose Random 177 mg/dL (60-115); Sodium 141 mmol/L (135-145); Total Protein 7.6 g/dL (6.5-8.0)
[2024-01-21 12:27] LABS: LDL Cholesterol Direct 93 mg/dL (<100)
== END 2024-01-20 10:17 | disposition home or self-care (01) ==
LOC: HO.HMGCLDS 10:16
PROVIDERS: PCP Internal Medicine; Visit Provider Internal Medicine
DX: E78.9 Disorder of lipoprotein metabolism, unspecified (principal); Z91.09 Other allergy status, other than to drugs and biological substances; E13.9 Other specified diabetes mellitus without complications
CPT/HCPCS: 36415; 80053; 82043; 82570; 83036; 83721; 85025

== ENCOUNTER 2024-01-30 07:29 | Outpatient (AMB) | payer MEDICARE, OTHER, SELFPAY ==
--- NOTE | 2024-01-30 07:42 | A.OFFPC_ITS ---
Intake Visit Reasons: medication follow up/ Allergies No Known Allergies [No Known Allergies*] Allergy (Verified 01/20/24 09:50) Medication List - Last Reconciled 01/30/24 by Mary Pina MD FreeStyle Lite Strips (blood sugar diagnostic) BID NS glipizide 10 mg PO BID 90 days lancets As directed lisinopril 2.5 mg PO DAILY 90 days pioglitazone (Actos) 30 mg PO DAILY 90 days polyethylene glycol 3350 (Miralax) 17 grams PO DAILY simvastatin 40 mg PO BEDTIME 90 days Tobacco use date assessed: 01/20/24 Dental Screening Dental Screen Date: 01/20/24 HPI medication follow up/ HPI Details Patient is 64-year-old female, this is a telemedicine video conference to go over labs Her recent labs showed hemoglobin A1c of 8.9 Currently patient is taking glipizide 10 mg b.i.d. 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 Side effect of Trulicity reviewed with the patient and also encouraged to read them when provided by pharmacy [facility] Medical History Tubular adenoma Elevated cholesterol Diabetes Breast cancer in female Surgical History Hx of colonoscopy History of lumpectomy of left breast Family History Father Cancer Mother Stroke CVD (cardiovascular disease) Social History Household Members: Spouse Housing: House Alcohol intake: never Patient Tobacco Use Status: Never used Tobacco e-Cigarette/Vaping Use: Never Used service: No Current occupational status: employed Cognitive needs: No Hearing needs: No Vision needs: Yes Questionnaire Thrive Questionnaire Date Thrive assessed: 07/22/23 ATIYA-7 AMB Questionnaire ATIYA-7 Date ATIYA - 7 assessed: 07/22/23 Source: Developed by Drs. Rowdy L. CintiaEkaterina rodríguez Kurt Kroenke and colleagues, with an educational sherry from [employer]. Review of Systems Const Denies chills and Denies fever(s) ENT Denies epistaxis and Denies nasal discharge Card Denies chest pain Resp Denies chest congestion, Denies cough and Denies hemoptysis GI Denies diarrhea and Denies nausea Skin/Breast Denies rash Neuro Reports no additional complaints Psych Reports no additional complaints Endo Reports no additional complaints Physical exam (Primary Care) Tobacco/Smoking Status: Tobacco use Status Tobacco use date assessed 01/20/24 01/30/24 07:45 Patient Tobacco Use Status Never used Tobacco 01/30/24 07:45 e-Cigarette/Vaping Use Never Used 01/30/24 07:45 Thrive Assessment: Date of Thrive Assessment Date Thrive assessed 07/22/23 01/30/24 07:45 Telehealth Telehealth Location of provider rendering services: practice address Location of patient: address on file Patient Identification confirmed using: Name, : Yes Telehealth method: video Patient verbally consented to treatment: Yes Patient verbally consented to billing insurance company: Yes Patient informed of any privacy concerns related to visit: Yes Minutes spent on Phone/Video with Pt.: 14 Assessment and Plan Assessment & Plan (1) Uncontrolled diabetes mellitus: Qualifiers: Diabetes mellitus type: type 2 Glycemic state: with hyperglycemia Qualified Code(s): E11.65 - Type 2 diabetes mellitus with hyperglycemia Plan Patient is 64-year-old female, this is a telemedicine video conference to go over labs Her recent labs showed hemoglobin A1c of 8.9 Currently patient is taking glipizide 10 mg b.i.d. 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 Side effect of Trulicity reviewed with the patient and also encouraged to read them when provided by pharmacy Medications: New dulaglutide (Trulicity) 0.75 mg (0.5 mL) subcut QWEEK 2.5 mL 0RF 30 days Coding Level of Care Code Tele Est Pt Level 3 (72126) Diagnoses Uncontrolled type 2 diabetes mellitus with hyperglycemia E11.65 Diabetes mellitus type: type 2 Glycemic state: with hyperglycemia
== END 2024-01-30 08:21 | disposition home or self-care (01) ==
LOC: HO.HMGC 07:29
PROVIDERS: PCP Internal Medicine; Visit Provider Internal Medicine
DX: E11.65 Type 2 diabetes mellitus with hyperglycemia (principal)
CPT/HCPCS: 99213

== ENCOUNTER 2024-02-03 09:17 | Outpatient (AMB) | payer MEDICARE, OTHER, SELFPAY ==
--- NOTE | 2024-02-03 09:21 | MHC.OFFVIS ---
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 Patient states she's had leg swelling since May of 2023. Patient does not have pain but says her feet and legs swell after walking. 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 Complaints include pain over varicosities, swelling of lower extremities, c in particular the dorsum of her feet. 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 It is noted more so in left leg. Of note she is a nonsmoker and has been a diabetic for 10+ years Patient denies any previous venous surgery or injections. Patient denies any history of DVT/ PE. Patient denies any history of phlebitis. Trial of compression includes - [id number] They now present for vascular evaluation regarding their varicose veins. [facility] Medical History Tubular adenoma Elevated cholesterol Diabetes Breast cancer in female Surgical History Hx of colonoscopy History of lumpectomy of left breast Family History Father Cancer Mother Stroke CVD (cardiovascular disease) Social History Household Members: Spouse Housing: House Alcohol intake: never Patient Tobacco Use Status: Never used Tobacco e-Cigarette/Vaping Use: Never Used service: No Current occupational status: employed Cognitive needs: No Hearing needs: No Vision needs: Yes Review of Systems Const Reports as per HPI ENT Reports no additional complaints Card Denies chest pain, Denies chest pain at rest and Denies chest pain with activity Resp Denies chest congestion and Denies cough GI Reports no additional complaints Musc Details: pain over varicosities, aching of lower extremities, swelling, cramping, heaviness and tiredness, itching Denies abnormal gait Skin/Breast Reports pruritus and Denies wounds Neuro Reports no additional complaints and Denies abnormal gait Psych Denies no additional complaints Physical Exam Const General: cooperative, healthy appearing and comfortable Orientation/consciousness: oriented to person, oriented to place and oriented to time Neck Carotids: no bruits Chest Chest palpation & inspection: normal inspection of the chest and normal palpation of entire chest wall Resp Effort & Inspection: normal respiratory effort and able to speak in complete sentences Cardio Rate: regular rate Heart sounds: S1 normal heart sound present and S2 normal heart sound present Peripheral pulses: Peripheral pulses 2+ throughout GI Inspection: Yes normal to inspection Skin Other: +2 edema, left greater than right CEAP Classification C4 - skin color changes Ep - Etiology Primary As - superficial veins P - reflux General skin exam: dry skin Neuro General: oriented to person, oriented to place and oriented to time Extrem Right lower extremity: full ROM, normal capillary refill and edema Left lower extremity: full ROM, normal capillary refill and edema Psych Mental Status: mental status grossly normal Assessment & Plan Assessment & Plan (1) Varicose veins of left lower extremity with inflammation: Code(s): I83.12 - Varicose veins of left lower extremity with inflammation Plan: In short, the patient has evidence of venous insufficiency. I have discussed the pathophysiology with the patient. In addition I have provided informational material regarding venous disease to the patient. We have discussed conservative measures including compression, elevation, and exercise. I have also provided a handout regarding appropriate use of compression stockings and where to purchase good compression stockings as well. I have taken the liberty of ordering venous insufficiency testing with the patient. They will follow up with me after testing. The patient had an opportunity to ask questions regarding the treatment plan. All questions were answered. Imaging studies, laboratory studies and physical exam results were discussed and reviewed in detail. No major barriers to understanding were identified. The patient expressed understanding and agreement with the above treatment plan. The patient is aware they should contact our office by phone for worsening of the current condition or the appearance of new symptoms. Thank you for allowing me to participate in the vascular care of this patient. If you have any questions or concerns regarding the treatment for the above condition please do not hesitate to contact me. The office telephone contact is [phone]. This note is constructed using voice recognition software. While every effort has been made to ensure accuracy, director of mechanical engineering errors may have been included. Thank you for allowing me to participate in the care of your patient. Yours sincerely, Riaz Amaro MD, FACS, R.P.V.I. Orders: Orders US venous insuf bilat 1 Week I83.12 - Varicose veins of left lower extremity with inflammation Coding Level of Care Code Est Pt Level 4 (15073) Diagnoses Varicose veins of left lower extremity with inflammation I83.12
== END 2024-02-03 10:05 | disposition home or self-care (01) ==
PROVIDERS: PCP Internal Medicine; Visit Provider Surgery Vascular Surgery
DX: I83.12 Varicose veins of left lower extremity with inflammation (principal)
CPT/HCPCS: 99213

== ENCOUNTER → 2024-02-03 09:17 | Outpatient (BNVA) | payer MEDICARE, OTHER, SELFPAY | PROVIDERS: PCP Internal Medicine; Visit Provider Surgery Vascular Surgery | DX: I83.12 Varicose veins of left lower extremity with inflammation (principal) | CPT/HCPCS: 99212 ==

== ENCOUNTER 2024-02-13 08:24 | Outpatient (REF) | payer MEDICARE, OTHER, SELFPAY ==
--- NOTE | ~2024-02-13 | US_ITS ---
EXAMINATION: US LOWER EXTREMITY VENOUS (REFLUX EXAM), BILATERAL CLINICAL INFORMATION: Chronic venous insufficiency with lower extremity varicose veins with inflammation COMPARISON: None. TECHNIQUE: Color flow triplex imaging and compression Doppler was performed to evaluate both the deep and the superficial systems bilaterally. To evaluate the superficial system, the examination was performed in the upright position. Color-flow Doppler ultrasound and compression ultrasound were utilized. In addition, maneuvers were utilized to demonstrate reflux. FINDINGS: 1. DEEP VENOUS ULTRASOUND OF THE RIGHT LOWER EXTREMITY: Common Femoral Vein: Compressible, normal respiratory variation and augmented flow. Femoral Vein: Compressible, normal color flow and augmentation. Popliteal Vein: Compressible, normal augmentation. Deep Reflux: There is no evidence of reflux in the deep system in either the common femoral vein, superficial femoral or the popliteal vein. There is no evidence of a Aldridge's cyst. 2. SUPERFICIAL ULTRASOUND WITH DOPPLER OF RIGHT LOWER EXTREMITY: GREAT SAPHENOUS VEIN: Saphenofemoral Junction: 0.5 cm; Reflux: 0 ms Proximal Thigh: 0.5 cm; Reflux: 2188 ms Mid Thigh: 0.3 cm; Reflux: 0 ms Distal Thigh: 0.4 cm; Reflux: 0 ms At Knee: 0.4 cm; Reflux: 0 ms Proximal Calf: 0.3 cm; Reflux: 0 ms Mid Calf: 0.2 cm; Reflux: 0 ms Distal Calf: 0.2 cm; Reflux: 0 ms DUPLICATED MEDIAL GREAT SAPHENOUS VEIN: Diameter: None imaged Reflux: NA DUPLICATED LATERAL GREAT SAPHENOUS VEIN: Diameter: None imaged Reflux: NA SMALL SAPHENOUS VEIN: Saphenopopliteal Junction: Not visualized cm; Reflux: 0 ms Proximal: 0.1 cm; Reflux: 2308 ms Distal: 0.2 cm; Reflux: 0 ms VEIN OF GIACOMINI: Size: NA Reflux: NA PERFORATORS: Location: None significant Size: NA Reflux: NA VARICOSITIES: Location: None significant. Size: NA Reflux: NA 3. DEEP VENOUS ULTRASOUND OF THE LEFT LOWER EXTREMITY: Common Femoral Vein: Compressible, normal respiratory variation and augmented flow. Femoral Vein: Compressible, normal color flow and augmentation. Popliteal Vein: Compressible, normal augmentation. Deep Reflux: There is no evidence of reflux in the deep system in either the common femoral vein, superficial femoral or the popliteal vein. There is no evidence of a Aldridge's cyst. 4. SUPERFICIAL ULTRASOUND WITH DOPPLER OF LEFT LOWER EXTREMITY: GREAT SAPHENOUS VEIN: Saphenofemoral Junction: 0.8 cm; Reflux: 0 ms Proximal Thigh: 0.4 cm; Reflux: 0 ms Mid Thigh: 0.3 cm; Reflux: 0 ms Distal Thigh: 0.4 cm; Reflux: 0 ms At Knee: 0.3 cm; Reflux: 0 ms Proximal Calf: 0.3 cm; Reflux: 504 ms Mid Calf: 0.2 cm; Reflux: 0 ms Distal Calf: 0.2 cm; Reflux: 0 ms DUPLICATED MEDIAL GREAT SAPHENOUS VEIN: Diameter: 0.2 cm Reflux: None DUPLICATED LATERAL GREAT SAPHENOUS VEIN: Diameter: None imaged. Reflux: NA SMALL SAPHENOUS VEIN: Saphenopopliteal Junction: 0.2 cm; Reflux: 0 ms Proximal: 0.2 cm; Reflux: 0 ms Distal: 0.2 cm; Reflux: 0 ms VEIN OF GIACOMINI: Size: NA Reflux: NA PERFORATORS: Location: None significant Size: NA Reflux: NA VARICOSITIES: Location: None significant Size: NA Reflux: NA US/US venous insuf bilat IMPRESSION: Right: Focal area of reflux within the great saphenous vein in the proximal thigh and small saphenous vein in the proximal calf as described above. No significant varicose veins over 3 mm in size. Left: Focal area of mild reflux in the great saphenous vein in the proximal calf. No significant varicose veins over 3 mm in size
== END 2024-02-13 08:25 | disposition home or self-care (01) ==
LOC: HO.US 08:24
PROVIDERS: PCP Internal Medicine; Visit Provider Surgery Vascular Surgery
DX: I83.12 Varicose veins of left lower extremity with inflammation (principal)
CPT/HCPCS: 93970

== ENCOUNTER 2024-03-04 09:28 | Outpatient (AMB) | payer MEDICARE, OTHER, SELFPAY ==
--- NOTE | 2024-03-04 09:32 | MHC.OFFVIS ---
Intake Visit Reasons: follow up US Intake Note: Patient presents for US performed on 02/13/24. States she still has swelling. No pain at the moment. Accompanied by: Spouse Allergies No Known Allergies [No Known Allergies*] Allergy (Verified 03/04/24 09:36) HPI HPI follow up US: Details: Very pleasant 64-year-old female presents for follow-up regarding her lower extremities. Upon discussion with her her biggest complaint is that she does have occasional swelling but it is the cold feeling that she has in her legs. At the current time as the weather has improved she does report that it is doing better. She now presents for follow-up with venous insufficiency testing. [facility] Medical History Tubular adenoma Elevated cholesterol Diabetes Breast cancer in female Surgical History Hx of colonoscopy History of lumpectomy of left breast Family History Father Cancer Mother Stroke CVD (cardiovascular disease) Social History Household Members: Spouse Housing: House Alcohol intake: never Patient Tobacco Use Status: Never used Tobacco e-Cigarette/Vaping Use: Never Used service: No Current occupational status: employed Cognitive needs: No Hearing needs: No Vision needs: Yes Review of Systems Const All systems reviewed & are unremarkable except as noted in HPI and below Reports no additional complaints ENT Reports Normal hearing present Card Denies chest pain, Denies chest pain at rest, Denies chest pain with activity and Denies pedal edema Resp Denies cough GI Denies abdominal pain Musc Denies abnormal gait, Denies muscle cramps and Denies radiating pain into limb Skin/Breast Denies skin ulcer and Denies wounds Neuro Reports Normal hearing present and Denies abnormal gait Psych Reports no additional complaints Physical Exam Const General: cooperative, healthy appearing and comfortable Orientation/consciousness: oriented to person, oriented to place and oriented to time HEENT Head: Yes normal to inspection Neck Neck: Yes normal visual inspection Carotids: no bruits Chest Chest palpation & inspection: normal inspection of the chest Resp Effort & Inspection: normal respiratory effort and able to speak in complete sentences Auscultation: clear to auscultation bilaterally, no crackles, no rales, no rhonchi and no wheezes Cardio Rate: regular rate Rhythm: regular rhythm Heart sounds: S1 normal heart sound present and S2 normal heart sound present Bruits: no carotid bruits Peripheral pulses: Peripheral pulses 2+ throughout GI Inspection: Yes normal to inspection Skin Wounds: no wounds Hair: normal Neuro General: oriented to person, oriented to place and oriented to time Cranial nerves: Yes CN's II-XII intact bilaterally and Yes Normal hearing present Cognition (Neuro): normal cognition Motor exam (neuro): 5/5 motor strength present throughout Extrem Other: venous exam: +1 General: No clubbing, No cyanosis and Yes edema Psych Appearance: grossly normal Mental Status: mental status grossly normal Speech and movement: Normal speech and movement present Results Reviewed Results Reviewed: Brief summary of venous insufficiency testing is as follows: right great saphenous vein: Only focally positive right small saphenous vein: negative right accessory vein: none present left great saphenous vein: negative left small saphenous vein: negative left accessory vein: none present Please note there is no evidence of any venous aneurysms or significant tortuosity Assessment & Plan Assessment & Plan (1) Varicose veins of left lower extremity with inflammation: Code(s): I83.12 - Varicose veins of left lower extremity with inflammation Category: Medical Plan: In short patient is negative for any significant venous insufficiency. In addition she has palpable arterial pulses. I do not believe it is a vascular issue. We did discuss routine conservative measures including compression elevation and exercise. In addition in cold weather is may benefit from hand and foot protection. She will follow up with us on an as-needed basis. Thank you for allowing us to assist in her care. Coding Level of Care Code Est Pt Level 3 (06506) Diagnoses Varicose veins of left lower extremity with inflammation I83.12
== END 2024-03-04 09:58 | disposition home or self-care (01) ==
PROVIDERS: PCP Internal Medicine; Visit Provider Surgery Vascular Surgery
DX: I83.12 Varicose veins of left lower extremity with inflammation (principal)
CPT/HCPCS: 99213

== ENCOUNTER → 2024-03-04 09:28 | Outpatient (BNVA) | payer MEDICARE, OTHER, SELFPAY | PROVIDERS: PCP Internal Medicine; Visit Provider Surgery Vascular Surgery | DX: I83.12 Varicose veins of left lower extremity with inflammation (principal) | CPT/HCPCS: 99212 ==

== ENCOUNTER 2024-05-18 14:46 | Outpatient (AMB) | payer MEDICARE, OTHER, SELFPAY ==
--- NOTE | 2024-05-18 14:49 | A.OFFPC_ITS ---
Vital Signs 05/18/24 14:51 Height 5 ft Weight 142 lb BMI 27.7 BP 114/72 Blood Pressure Location Rt brachial Position Sitting Pulse 72 Pulse Source Pulse Oximeter Pulse Oximetry (%) 97 Oxygen Delivery Method Room Air Intake Visit Reasons: 4m follow up Allergies No Known Allergies [No Known Allergies*] Allergy (Verified 05/18/24 14:49) Medication List - Last Reconciled 05/18/24 by Mary Pina MD dulaglutide (Trulicity) 0.75 mg (0.5 mL) subcut QWEEK 30 days FreeStyle Lite Strips (blood sugar diagnostic) BID NS glipizide 10 mg PO BID 90 days lancets As directed lisinopril 2.5 mg PO DAILY 90 days pioglitazone (Actos) 30 mg PO DAILY 90 days polyethylene glycol 3350 (Miralax) 17 grams PO DAILY simvastatin 40 mg PO BEDTIME 90 days Tobacco use date assessed: 05/18/24 Fall risk assessment: No Falls in past year Last assessed Fall Risk: 05/18/24 Dental Screening Dental Screen Date: 05/18/24 Did you have a dental visit in the last 12 months?: Yes Did you have a dental problem in the last 6 months where you did not have access to dental care?: No Was dental information given to patient?: Patient has dentist HPI 4m follow up HPI Details Patient is a 64-year-old female came in today for her follow-up [facility].? She was having swelling of her ankles, was evaluated by Cardiology Cardiology did not think it is related to her heart she had a workup done She has stopped taking glipizide that has helped with the swelling Diabetes mellitus:? Patient is on Trulicity 0.75 mg now patient says that for the last 3 weeks she did not give herself injection correctly and medication was coming out Instructed patient to try giving it to her thigh area. That might be easier. Her hemoglobin A1c is 8.1 today She is also taking Actos 30 mg.? Sent via stopping the glipizide I will be increasing her Trulicity to 1.5 mg Continue lisinopril 2.5 mg daily as well.? Lipid disorder:? Patient is on simvastatin 40 mg tolerating medication no side effects. Follow-up mid August labs are needed before visit [facility] Medical History Tubular adenoma Elevated cholesterol Diabetes Breast cancer in female Surgical History Hx of colonoscopy History of lumpectomy of left breast Family History Father Cancer Mother Stroke CVD (cardiovascular disease) Social History Household Members: Spouse Housing: House Alcohol intake: never Patient Tobacco Use Status: Never used Tobacco e-Cigarette/Vaping Use: Never Used service: No Current occupational status: employed Current occupational exposures/hazards: No Cognitive needs: No Hearing needs: No Vision needs: Yes Questionnaire PHQ-9 Over the last 2 weeks, how often have you been bothered by any of the following problems? 1. Little interest or pleasure in doing things: not at all 2. Feeling down, depressed, or hopeless: not at all 3. Trouble falling or staying asleep, or sleeping too much: not at all 4. Feeling tired or having little energy: not at all 5. Poor appetite or overeating: not at all 6. Feeling bad about yourself - or that you are a failure or have let yourself or your family down: not at all 7. Trouble concentrating on things, such as reading the newspaper or watching television: not at all 8. Moving or speaking so slowly that other people could have noticed. Or the opposite - being so fidgety or restless that you have been moving around a lot more than usual: not at all 9. Thoughts that you would be better off or of hurting yourself in some way: not at all Total score: 0 Depression Screening Interpretation: Negative Depression Screening Done: Yes 49041 - PHQ-9 Billing: Yes Source: Developed by Drs. Rowdy Chamberlain, Ekaterina Ruth, Juan J Boyer and colleagues, with an educational sherry from [employer]. Thrive Questionnaire Date Thrive assessed: 05/18/24 I am a: Patient What is your living situation today?: I have a steady place to live Within the past 12 months, did the food you bought not last and you didn't have the money to get more?: Never true Within the past 12 months, did you worry whether your food would run out before you got money to buy more?: Never true Do you have trouble paying for medicines?: No Do you have trouble getting transportation to medical appointments?: No Do you have trouble paying your heating and electricity bill?: No Do you have trouble taking care of your child, family member or friend?: No Do you have trouble with day-to-day activities such as bathing, preparing meals, shopping, managing finances, etc.?: No Are you currently unemployed and looking for a job?: No Are you interested in more education?: No Please select the resources that you would like help with: None Currently or been in a relationship where the following occur: No concerns reported THRIVE Score: 0 AUDIT C Alcohol Use Questionnaire (AUDIT-C) 1. How often do you have a drink containing alcohol?: Never Total Score: 0 ATIYA-7 AMB Questionnaire ATIYA-7 Date ATIYA - 7 assessed: 05/18/24 Feeling nervous, anxious, or on edge: 0 = Not at all Not being able to stop or control worryin = Not at all Worrying too much about different things: 0 = Not at all Trouble relaxin = Not at all Being so restless that it is hard to sit still: 0 = Not at all Becoming easily annoyed or irritable: 0 = Not at all Feeling afraid as if something awful might happen: 0 = Not at all Total ATIYA-7 score (0-4 normal; 5-9 mild; 10-14 moderate; 15-21 severe): 0 Source: Developed by Drs. Rowdy Chamberlain, Ekaterina Ruth, Juan J Boyer and colleagues, with an educational sherry from [employer]. ATIYA-7 Assessment Billing ATIYA-7 Assessment Tool: ATIYA-7 Assessment 35621 Review of Systems Const Denies chills and Denies fever(s) ENT Denies epistaxis and Denies nasal discharge Card Denies chest pain Resp Denies chest congestion, Denies cough and Denies hemoptysis GI Denies diarrhea and Denies nausea Skin/Breast Denies rash Neuro Reports no additional complaints Psych Reports no additional complaints Endo Reports no additional complaints Physical exam (Primary Care) Vital Signs: Last Vital Signs Pulse 72 05/18/24 14:51 BP 114/72 05/18/24 14:51 Pulse Ox 97 05/18/24 14:51 Oxygen Delivery Method Room Air 05/18/24 14:51 BMI result Body Mass Index 27.7 Tobacco/Smoking Status: Tobacco use Status Tobacco use date assessed 05/18/24 05/18/24 14:58 Patient Tobacco Use Status Never used Tobacco 05/18/24 14:58 e-Cigarette/Vaping Use Never Used 05/18/24 14:58 PHQ-9: PHQ-9 Score PHQ-9: Total score 0 05/18/24 14:58 Depression Screening Interpretation: Negative Thrive Assessment: Date of Thrive Assessment Date Thrive assessed 05/18/24 05/18/24 14:58 Currently or been in a relationship where the following occur: No concerns reported Const General: cooperative, comfortable and no acute distress Orientation/consciousness: patient oriented x3 HENMT Head: Yes normocephalic Eyes General: appearance normal, both eyes and all related structures Neck Neck: Yes supple Resp Effort & Inspection: normal respiratory effort, no cough and no stridor Cardio Rhythm: regular rhythm Heart sounds: S1 normal heart sound present and S2 normal heart sound present Skin General skin exam: turgor normal Neuro General: patient oriented x3, tone normal and moves all extremities Extrem Right lower extremity: no edema Left lower extremity: no edema Results AMB Hemoglobin A1c AMB Hemoglobin A1c 8.1 % Last Edit by Lj Pagan CMA on 05/18/24 15:09 Assessment and Plan Assessment & Plan (1) Diabetes 1.5, managed as type 2: Code(s): E13.9 - Other specified diabetes mellitus without complications (2) Lipid disorder: Code(s): E78.9 - Disorder of lipoprotein metabolism, unspecified (3) Environmental allergies: Code(s): Z91.09 - Other allergy status, other than to drugs and biological substances (4) Swelling of both lower extremities: Code(s): M79.89 - Other specified soft tissue disorders Plan Patient is a 64-year-old female came in today for her follow-up appointment.? She was having swelling of her ankles, was evaluated by Cardiology Cardiology did not think it is related to her heart she had a workup done She has stopped taking glipizide that has helped with the swelling Diabetes mellitus:? Patient is on Trulicity 0.75 mg now patient says that for the last 3 weeks she did not give herself injection correctly and medication was coming out Instructed patient to try giving it to her thigh area. That might be easier. Her hemoglobin A1c is 8.1 today She is also taking Actos 30 mg.? Sent via stopping the glipizide I will be increasing her Trulicity to 1.5 mg Continue lisinopril 2.5 mg daily as well.? Lipid disorder:? Patient is on simvastatin 40 mg tolerating medication no side effects. Allergies stable Follow-up mid August labs are needed before visit Orders: Orders AMB Hemoglobin A1c Today E13.9 - Other specified diabetes mellitus without complications Complete Blood Count Auto Diff 2 Months E13.9 - Other specified diabetes mellitus without complications, E78.9 - Disorder of lipoprotein metabolism, unspecified, M79.89 - Other specified soft tissue disorders, Z91.09 - Other allergy status, other than to drugs and biological substances Microalbumin, Random (w Creat) 2 Months E13.9 - Other specified diabetes mellitus without complications, E78.9 - Disorder of lipoprotein metabolism, unspecified, M79.89 - Other specified soft tissue disorders, Z91.09 - Other allergy status, other than to drugs and biological substances Hemoglobin A1c 2 Months E13.9 - Other specified diabetes mellitus without complications, E78.9 - Disorder of lipoprotein metabolism, unspecified, M79.89 - Other specified soft tissue disorders, Z91.09 - Other allergy status, other than to drugs and biological substances Comprehensive Met. Panel 2 Months E13.9 - Other specified diabetes mellitus without complications, E78.9 - Disorder of lipoprotein metabolism, unspecified, M79.89 - Other specified soft tissue disorders, Z91.09 - Other allergy status, other than to drugs and biological substances LDL Cholesterol Direct 2 Months E13.9 - Other specified diabetes mellitus without complications, E78.9 - Disorder of lipoprotein metabolism, unspecified, M79.89 - Other specified soft tissue disorders, Z91.09 - Other allergy status, other than to drugs and biological substances Coding Level of Care Code Est Pt Level 4 (82189) Complex EM visit Add On G2211 Diagnoses Diabetes 1.5, managed as type 2 E13.9 Lipid disorder E78.9 Environmental allergies Z91.09 Swelling of both lower extremities M79.89 Additional Codes ATIYA-7 Assessment Billing - ATIYA-7 Assessment Tool: ATIYA-7 Assessment [id number] ([id number])
[2024-05-18 14:51] VITALS: BP 114/72; PULSE 72; O2SAT 97; BMI 27.7
== END 2024-05-18 15:23 | disposition home or self-care (01) ==
PROVIDERS: PCP Internal Medicine; Visit Provider Internal Medicine
DX: E13.9 Other specified diabetes mellitus without complications (principal); E78.9 Disorder of lipoprotein metabolism, unspecified; Z91.09 Other allergy status, other than to drugs and biological substances; M79.89 Other specified soft tissue disorders
CPT/HCPCS: 83036; 99214; G2211

== ENCOUNTER 2024-06-21 10:32 | Outpatient (AMB) | payer MEDICARE, OTHER, SELFPAY ==
--- NOTE | 2024-06-21 10:38 | A.OFFVIS_ITS ---
Vital Signs 06/21/24 10:39 Height 5 ft Weight 139 lb 5.314 oz BMI 27.2 BP 140/72 H Blood Pressure Location Rt brachial Position Sitting Pulse 66 Pulse Source Pulse Oximeter Pulse Oximetry (%) 98 Oxygen Delivery Method Room Air Intake Visit Reasons: Discuss colonoscopy Intake Note: Yohan presents in office today for a scheduled FUV to discuss a possible colo s/p. CC; Pt reports that they have remained stable since their last visit. Pt denies any new concerns or GI sx at this time. 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 Continue MiraLax on as needed basis. Patient will return in June so we can discuss going for colonoscopy. Patient had 1 tubular adenoma without high-grade dysplasia or carcinoma. Recommendation was made for 3-5 years surveillance. Referral send to vascular surgeon. Patient reports to have swelling in her bilateral lower extremities. Patient is agreeable to this plan and verbalizes understanding of instructions she was given the opportunity to ask questions and all questions answered. ? Thank you for allowing me to participate in her care Orders Referrals Vascular Surgery Referral [id number] TODAY'S VISIT Patient is here today for follow-up and to discuss going for colonoscopy. Patient is due to go for colonoscopy again this year. Patient is stressed out as she was laid off 2 weeks ago from her job. Seen by vascular surgeon and no venous insufficiency found. Patient continues to have swelling in her legs and has to keep her feet up. Patient denies any melena, hematochezia, unintentional weight loss or ribbon like stools. Denies any dyspepsia, dysphagia or odynophagia. Uses MiraLax occasionally when needed if constipated. Patient denies any issues with anesthesia in the past. No history of sleep apnea. Not on any anticoagulation medication. Patient denies any cardiac or respiratory symptoms. Patient reports postprandial abdominal bloating and occasional right upper and left upper quadrant discomfort. Will send patient for ultrasound. Normal liver enzymes in January of this year. FORMERLY [facility], [facility] Medical History Tubular adenoma Elevated cholesterol Diabetes Breast cancer in female Surgical History Hx of colonoscopy History of lumpectomy of left breast Family History Father Cancer Mother Stroke CVD (cardiovascular disease) Social History Household Members: Spouse Housing: House Alcohol intake: never Patient Tobacco Use Status: Never used Tobacco e-Cigarette/Vaping Use: Never Used service: No Current occupational status: employed Current occupational exposures/hazards: No Cognitive needs: No Hearing needs: No Vision needs: Yes Review of Systems Const Denies weight gain and Denies weight loss ENT Reports no additional complaints, Denies dysphagia and Denies odynophagia Card Reports no additional complaints Resp Reports no additional complaints GI Denies abdominal pain, Denies belching, Denies melena, Denies bloating, Denies change in bowel habits, Denies dysphagia, Denies excessive flatus, Denies d yspepsia, Denies heartburn, Denies diarrhea, Denies loose stools, Denies nausea, Denies odynophagia and Denies vomiting Musc Reports no additional complaints Neuro Reports no additional complaints Psych Reports no additional complaints Endo Reports no additional complaints Physical Exam Const General: healthy appearing, no acute distress and well developed Nutritional Appearance: well nourished Orientation/consciousness: patient oriented x3 Resp Effort & Inspection: normal respiratory effort, able to speak in complete sent ences, no tracheal deviation and symmetric chest movement Auscultation: clear to auscultation bilaterally Cardio Rate: regular rate GI Inspection: Yes normal to inspection and No distended Palpation (GI): Soft to palpation, not firm, nontender and No hepatosplenomegaly present Auscultation: normal bowel sounds General: Yes no CVA tenderness Back/Spine/Pelvis Back: no CVA tenderness Skin General skin exam: elasticity normal, turgor normal and dry skin Neuro General: patient oriented x3 Extrem Other: Bilateral lower extremity edema Psych Appearance: grossly normal Mental Status: mental status grossly normal Assessment & Plan Assessment & Plan (1) Screening for colon cancer: Comment: Code(s): Z12.11 - Encounter for screening for malignant neoplasm of colon Category: Medical (2) Abdominal bloating: Code(s): R14.0 - Abdominal distension (gaseous) Plan Patient reports occasional abdominal pain and bloating postprandially. Patient reports pain in the right upper and left upper quadrant. Will send her for ultrasound. Patient is on Trulicity, lisinopril and glipizide. What to expect before during and after procedure discussed with patient. Discussed the importance of clear liquid diet day before procedure. Patient will follow-up in the office after the procedure, sooner on as needed basis. She is agreeable to this plan and verbalizes understanding of instructions. She was given the opportunity to ask questions and all questions answered. Thank you for allowing me to participate in her care Orders: Orders US abdomen complete Today R10.9 - Unspecified abdominal pain Medications: New bisacodyl (Dulcolax (bisacodyl)) take 4 tabs at noon the day before your colonoscopy 20 mg (4 x 5 mg) PO ONCE 1 day 4 tabs 0RF Z12.11 - Encounter for screening for malignant neoplasm of colon polyethylene glycol 3350 (Miralax) As directed by gastroenterology department at [facility] 238 grams PO ONCE 238 grams 0RF Z12.11 - Encounter for screening for malignant neoplasm of colon Coding Level of Care Code Est Pt Level 3 (79818) Diagnoses Screening for colon cancer Z12.11 Abdominal bloating R14.0 Time Spent (min) 30 Comment 20 minutes spent with patient and additional 10 minutes spent reviewing her records
[2024-06-21 10:39] VITALS: BP 140/72; PULSE 66; O2SAT 98; BMI 27.2
== END 2024-06-21 11:21 | disposition home or self-care (01) ==
PROVIDERS: PCP Internal Medicine; Visit Provider Nurse Practitioner Family
DX: R14.0 Abdominal distension (gaseous) (principal); Z12.11 Encounter for screening for malignant neoplasm of colon
CPT/HCPCS: 99213

== ENCOUNTER → 2024-06-21 10:32 | Outpatient (BNVA) | payer MEDICARE, OTHER, SELFPAY | PROVIDERS: PCP Internal Medicine; Visit Provider Nurse Practitioner Family | DX: Z01.818 Encounter for other preprocedural examination (principal); K21.9 Gastro-esophageal reflux disease without esophagitis; R14.0 Abdominal distension (gaseous); R10.9 Unspecified abdominal pain | CPT/HCPCS: 99212 ==

== ENCOUNTER 2024-07-16 08:22 | Outpatient (REF) | payer MEDICARE, OTHER, SELFPAY ==
--- NOTE | ~2024-07-16 | US_ITS ---
EXAMINATION: US ABDOMEN COMPLETE CLINICAL INFORMATION: Unspecified abdominal pain. COMPARISON: Renal ultrasound 03/05/2019. TECHNIQUE: Real-time imaging of the abdominal viscera. FINDINGS: PANCREAS: Normal. ABDOMINAL AORTA: The proximal, mid, and distal segments are normal in caliber. INFERIOR VENA CAVA: Visualized portions are normal. LIVER: The liver is normal in size. The liver contour is normal. There is mildly increased liver parenchymal echogenicity, consistent with hepatic steatosis. No focal hepatic lesion. There is no intrahepatic biliary duct dilatation seen. GALLBLADDER: Surgically absent. COMMON BILE DUCT: Common bile duct is mildly prominent at 1.15 cm in diameter. RIGHT KIDNEY: Normal. No hydronephrosis. No renal calculi or focal parenchymal lesions. The kidney measures 12.0 cm in maximum dimension. LEFT KIDNEY: Normal. No hydronephrosis. No renal calculi or focal parenchymal lesions. The kidney measures 11.9 cm in maximum dimension. SPLEEN: Normal. The spleen measures 8.1 cm in maximum dimension. FREE FLUID: None. US/US abdomen complete IMPRESSION: Hepatic steatosis. Electronically signed by: Solo Xinog MD 07/21/2024 03:09 PM EDT
== END 2024-07-16 08:23 | disposition home or self-care (01) ==
LOC: HO.HMGCX 08:22
PROVIDERS: PCP Internal Medicine; Visit Provider Nurse Practitioner Family
DX: R10.9 Unspecified abdominal pain (principal)
CPT/HCPCS: 76700

== ENCOUNTER 2024-08-12 09:27 | Outpatient (REF) | payer MEDICARE, OTHER, SELFPAY ==
[2024-08-12 13:00] LABS: MANUAL DIFF FLAG NO
[2024-08-12 13:04] LABS: Basophils Percent Auto 0.6 % (0-2); Eosinophils Absolute Auto 0.2 X10*3/uL (0.0-0.4); Eosinophils Percent Auto 3.7 % (0-4); Hematocrit 39.3 % (37.0-47.0); Hemoglobin 12.9 g/dl (12.0-16.0); Imm Gran Abs Auto 0.02 X10*3/uL (0.00-0.03); Imm Gran Pct Auto 0.4 % (0.0-0.4); Lymphocytes Absolute Auto 1.6 X10*3/uL (1.2-4.9); Lymphocytes Percent Auto 35.3 % (20-40); Mean Corpuscular HGB Conc 32.8 g/dl (31.0-35.0); Mean Corpuscular Hemoglobin 30.6 pg (27.0-33.0); Mean Corpuscular Volume 93.1 fL (80.0-98.0); Mean Platelet Volume 10.3 fL (9.4-12.3); Monocytes Absolute Auto 0.4 X10*3/uL (0.1-1.2); Monocytes Percent Auto 9.1 % (2-11); Neutrophils Absolute Auto 2.4 x10*3/uL (2.0-8.3); Neutrophils Percent Auto 50.9 % (45-73); Platelet Count 230 X10*3/uL (160-400); Red Blood Count 4.22 X10*6/uL (4.20-5.50); Red Cell Distribution Width 13.4 % (11.0-16.0); White Blood Count 4.6 X10*3/uL (4.8-10.8)
[2024-08-12 13:25] LABS: Alanine Aminotransferase 14 U/L (0-31); Albumin Level 4.2 g/dL (3.5-5.0); Alkaline Phosphatase 63 U/L (39-117); Anion Gap 11 (12-20); Aspartate Amino Transferase 20 U/L (5-31); Bilirubin Total 0.7 mg/dL (0.0-1.0); Blood Urea Nitrogen 10 mg/dL (9-16); Calcium 9.7 mg/dL (8.4-10.2); Carbon Dioxide 28 mmol/L (22-29); Chloride 104 mmol/L (96-108); Estimated Glomerular Filt Rate > 60; Glucose Random 198 mg/dL (60-115); Potassium 4.4 mmol/L (3.3-5.1); Sodium 139 mmol/L (135-145); Total Protein 7.4 g/dL (6.5-8.0)
[2024-08-12 13:52] LABS: Estimated Average Glucose 212 mg/dL; Hemoglobin A1C 247.7608 umol/L; Total Hemoglobin (HGBA1C) 3297.8776 umol/L
[2024-08-12 13:52] LABS: Microalbum/Creatinine Ratio Ur 33.8 ug/mg cr (<30)
[2024-08-14 01:39] LABS: LDL Cholesterol Direct 67 mg/dL (<100)
== END 2024-08-12 09:28 | disposition home or self-care (01) ==
LOC: HO.HMGCLDS 09:27
PROVIDERS: PCP Internal Medicine; Visit Provider Internal Medicine
DX: E13.9 Other specified diabetes mellitus without complications (principal); E78.9 Disorder of lipoprotein metabolism, unspecified; M79.89 Other specified soft tissue disorders; Z91.09 Other allergy status, other than to drugs and biological substances
CPT/HCPCS: 36415; 80053; 82043; 82570; 83036; 83721; 85025

== ENCOUNTER 2024-08-18 14:43 | Outpatient (AMB) | payer MEDICARE, OTHER, SELFPAY ==
[2024-08-18 14:50] VITALS: BP 124/68; PULSE 79; O2SAT 94; BMI 26.7
--- NOTE | 2024-08-18 14:50 | MHC.PC.OV ---
Vital Signs 08/18/24 14:50 Height 5 ft Weight 136 lb 8 oz BMI 26.7 BP 124/68 Blood Pressure Location Rt brachial Position Sitting Pulse 79 Pulse Source Pulse Oximeter Pulse Oximetry (%) 94 Oxygen Delivery Method Room Air Intake Visit Reasons: 3 Month F/U Allergies No Known Allergies [No Known Allergies*] Allergy (Verified 08/18/24 14:50) Medication List - Last Reconciled 08/18/24 by Mary Pina MD bisacodyl (Dulcolax (bisacodyl)) 20 mg (4 x 5 mg) PO ONCE 1 day dulaglutide (Trulicity) 0.75 mg (0.5 mL) subcut QWEEK 30 days FreeStyle Lite Strips (blood sugar diagnostic) BID NS glipizide 10 mg PO BID 90 days lancets As directed lisinopril 2.5 mg PO DAILY 90 days pioglitazone (Actos) 30 mg PO DAILY 90 days polyethylene glycol 3350 (Miralax) 238 grams PO ONCE polyethylene glycol 3350 (Miralax) 17 grams PO DAILY simvastatin 40 mg PO BEDTIME 90 days Tobacco use date assessed: 08/18/24 Fall risk assessment: No Falls in past year Last assessed Fall Risk: 08/18/24 Dental Screening Dental Screen Date: 08/18/24 Did you have a dental visit in the last 12 months?: Yes Did you have a dental problem in the last 6 months where you did not have access to dental care?: No Was dental information given to patient?: Patient has dentist HPI 3 Month F/U HPI Details Patient is a 64-year-old female came in today for her follow-up appointment.? Labs done recently shows hemoglobin A1c of 9.0 Patient says that she is not taking any oral medicine at this time She was on glipizide and then patient stopped it by herself thinking that the medication is causing swelling of her ankles I have sent refill of both Actos and glipizide again I am also increasing Trulicity script to 1.5 mg once a week Patient says that she got laid off from her work she has worked there for years And she is under lot of stress and clenching her jaw and grinding her teeth which is causing pain She is not able to sleep at night because of stress She agreed to take medication, I have sent Lexapro 10 mg to start in the morning And few tablets of lorazepam 0.5 mg to be taken at night only as needed if she can not sleep Patient was notified that medication will cause drowsiness and dizziness and there is a risk of fall and this medication is habit-forming if taken every day Continue lisinopril 2.5 mg daily as well.? Lipid disorder:? Patient is on simvastatin 40 mg tolerating medication no side effects. Blood pressure is stable Follow-up in October [facility] Medical History Tubular adenoma Elevated cholesterol Diabetes Breast cancer in female Surgical History Hx of colonoscopy History of lumpectomy of left breast Family History Father Cancer Mother Stroke CVD (cardiovascular disease) Social History Household Members: Spouse Housing: House Alcohol intake: never Patient Tobacco Use Status: Never used Tobacco e-Cigarette/Vaping Use: Never Used service: No Current occupational status: employed Current occupational exposures/hazards: No Cognitive needs: No Hearing needs: No Vision needs: Yes Questionnaire Thrive Questionnaire Date Thrive assessed: 05/18/24 AUDIT C Alcohol Use Questionnaire (AUDIT-C) 1. How often do you have a drink containing alcohol?: Never 3. How often do you have six or more drinks on one occasion?: Never Total Score: 0 Score Reviewed/Action Taken: Yes ATIYA-7 AMB Questionnaire ATIYA-7 Date ATIYA - 7 assessed: 05/18/24 Source: Developed by Drs. Rowdy Chamberlain, Ekaterina Ruth, Juan J Boyer and colleagues, with an educational sherry from [employer]. Review of Systems Const Denies chills and Denies fever(s) ENT Denies epistaxis and Denies nasal discharge Card Denies chest pain Resp Denies chest congestion, Denies cough and Denies hemoptysis GI Denies diarrhea and Denies nausea Skin/Breast Denies rash Neuro Reports no additional complaints Psych Reports no additional complaints Endo Reports no additional complaints Physical exam (Primary Care) Vital Signs: Last Vital Signs Pulse 79 08/18/24 14:50 BP 124/68 08/18/24 14:50 Pulse Ox 94 08/18/24 14:50 Oxygen Delivery Method Room Air 08/18/24 14:50 BMI result Body Mass Index 26.7 Tobacco/Smoking Status: Tobacco use Status Tobacco use date assessed 08/18/24 08/18/24 14:52 Patient Tobacco Use Status Never used Tobacco 08/18/24 14:52 e-Cigarette/Vaping Use Never Used 08/18/24 14:52 Thrive Assessment: Date of Thrive Assessment Date Thrive assessed 05/18/24 08/18/24 14:52 Const General: cooperative, comfortable and no acute distress Orientation/consciousness: patient oriented x3 HENMT Head: Yes normocephalic Eyes General: appearance normal, both eyes and all related structures Neck Neck: Yes supple Resp Effort & Inspection: normal respiratory effort, no cough and no stridor Cardio Rhythm: regular rhythm Heart sounds: S1 normal heart sound present and S2 normal heart sound present Skin General skin exam: turgor normal Neuro General: patient oriented x3, tone normal and moves all extremities Extrem Right lower extremity: no edema Left lower extremity: no edema Coding Level of Care Code Est Pt Level 4 (22243) Complex EM visit Add On G2211 Diagnoses Diabetes 1.5, managed as type 2 E13.9 Lipid disorder E78.9 Stress F43.9 Teeth grinding F45.8 Nervously anxious R45.0 Difficulty sleeping G47.9 Environmental allergies Z91.09 History of clenching of mandible Z78.9 Assessment & Plan Assessment & Plan (1) Diabetes 1.5, managed as type 2: Code(s): E13.9 - Other specified diabetes mellitus without complications Category: Medical (2) Lipid disorder: Code(s): E78.9 - Disorder of lipoprotein metabolism, unspecified Category: Medical (3) Stress: Code(s): F43.9 - Reaction to severe stress, unspecified Category: Medical (4) Teeth grinding: Code(s): F45.8 - Other somatoform disorders Category: Medical (5) Nervously anxious: Code(s): R45.0 - Nervousness Category: Medical (6) Difficulty sleeping: Code(s): G47.9 - Sleep disorder, unspecified Category: Medical (7) Environmental allergies: Code(s): Z91.09 - Other allergy status, other than to drugs and biological substances Category: Medical (8) History of clenching of mandible: Code(s): Z78.9 - Other specified health status Category: Medical Plan Patient is a 64-year-old female came in today for her follow-up appointment.? Labs done recently shows hemoglobin A1c of 9.0 Patient says that she is not taking any oral medicine at this time She was on glipizide and then patient stopped it by herself thinking that the medication is causing swelling of her ankles I have sent refill of both Actos and glipizide again I am also increasing Trulicity script to 1.5 mg once a week Patient says that she got laid off from her work she has worked there for years And she is under lot of stress and clenching her jaw and grinding her teeth which is causing pain She is not able to sleep at night because of stress She agreed to take medication, I have sent Lexapro 10 mg to start in the morning And few tablets of lorazepam 0.5 mg to be taken at night only as needed if she can not sleep Patient was notified that medication will cause drowsiness and dizziness and there is a risk of fall and this medication is habit-forming if taken every day Continue lisinopril 2.5 mg daily as well.? Lipid disorder:? Patient is on simvastatin 40 mg tolerating medication no side effects. Blood pressure is stable Follow-up in October Medications: New escitalopram oxalate (Lexapro) 10 mg PO DAILY 90 tabs 0RF stress lorazepam 0.5 mg PO BEDTIME PRN 30 tabs 0RF anxiety Changed From dulaglutide (Trulicity) 0.75 mg (0.5 mL) subcut QWEEK 30 days 2.5 mL 12RF To dulaglutide 1.5 mg (0.5 mL) subcut QWEEK 2.5 mL 12RF 30 days Refilled glipizide 10 mg PO BID 180 tabs 0RF 90 days pioglitazone (Actos) 30 mg PO DAILY 90 tabs 3RF 90 days
== END 2024-08-18 15:23 | disposition home or self-care (01) ==
PROVIDERS: PCP Internal Medicine; Visit Provider Internal Medicine
DX: E13.9 Other specified diabetes mellitus without complications (principal); E78.9 Disorder of lipoprotein metabolism, unspecified; F43.9 Reaction to severe stress, unspecified; F45.8 Other somatoform disorders; R45.0 Nervousness; G47.9 Sleep disorder, unspecified; Z91.09 Other allergy status, other than to drugs and biological substances; Z78.9 Other specified health status

== ENCOUNTER → 2024-08-18 14:43 | Outpatient (BNVA) | payer MEDICARE, OTHER, SELFPAY | PROVIDERS: PCP Internal Medicine; Visit Provider Internal Medicine | DX: E13.9 Other specified diabetes mellitus without complications (principal); E78.9 Disorder of lipoprotein metabolism, unspecified; F43.9 Reaction to severe stress, unspecified; F45.8 Other somatoform disorders; R45.0 Nervousness; G47.9 Sleep disorder, unspecified; Z91.09 Other allergy status, other than to drugs and biological substances; Z78.9 Other specified health status | CPT/HCPCS: 99212 ==

== ENCOUNTER 2024-10-20 08:48 | Outpatient (AMB) | payer MEDICARE, OTHER, SELFPAY ==
--- NOTE | 2024-10-20 08:52 | MHC.PC.OV ---
Vital Signs 10/20/24 08:54 Height 5 ft Weight 138 lb BMI 26.9 BP 120/66 Blood Pressure Location Rt brachial Position Sitting Pulse 71 Pulse Source Pulse Oximeter Pulse Oximetry (%) 96 Oxygen Delivery Method Room Air Intake Visit Reasons: f/u Allergies No Known Allergies [No Known Allergies*] Allergy (Verified 10/20/24 08:54) Medication List - Last Reconciled 10/20/24 by Mary Pina MD bisacodyl (Dulcolax (bisacodyl)) 20 mg (4 x 5 mg) PO ONCE 1 day dulaglutide 1.5 mg (0.5 mL) subcut QWEEK 30 days escitalopram oxalate (Lexapro) 10 mg PO DAILY FreeStyle Lite Strips (blood sugar diagnostic) BID NS glipizide 10 mg PO BID 90 days lancets As directed lisinopril 2.5 mg PO DAILY 90 days lorazepam 0.5 mg PO BEDTIME PRN pioglitazone (Actos) 30 mg PO DAILY 90 days polyethylene glycol 3350 (Miralax) 238 grams PO ONCE polyethylene glycol 3350 (Miralax) 17 grams PO DAILY simvastatin 40 mg PO BEDTIME 90 days Tobacco use date assessed: 10/20/24 Fall risk assessment: No Falls in past year Last assessed Fall Risk: 10/20/24 Dental Screening Dental Screen Date: 08/18/24 HPI f/u HPI Details Assessment and Plan 64 year old female with history of Type 2 Diabetes Mellitus, Anxiety, Hypertension, Hyperlipidemia, presenting with concerns about diabetes management and foot discomfort . Her blood glucose levels have shown improvement, now occasionally reaching as low as 118 mg/dL, with higher readings typically around 160 mg/dL. She is managing her diabetes with medications and reports no need for additional refills at this time. she visits a manufacturing specialist yearly. The patient has a known diagnosis of Non-Alcoholic Fatty Liver Disease (NAFLD) and a recent assessment recommended weight loss. 1. Type 2 Diabetes Mellitus Continue current regimen of Trulicity 1.5 mg weekly, glipizide 10 mg BID, and pioglitazone 30 mg daily. Emphasize importance of regular blood glucose monitoring. Encouraged patient to maintain records of glucose levels to bring for subsequent visits. Reinforce diet and exercise modifications. 2. Hypertension Maintain lisinopril 2.5 mg regimen. Continue routine blood pressure monitoring. 3. Hyperlipidemia Continue simvastatin 40 mg. Lipid levels to be monitored periodically. 4. Anxiety Continue current Lexapro regimen. Patient did not express need for change in current management. 5. Fatty (change of) liver, not elsewhere classified K76.0 Reinforce weight loss as a cornerstone intervention. Continued monitoring of liver function tests is advisable; order for blood tests placed. Diagnostic results - Labs: - Complete Blood Count (CBC) conducted on August 12 Problem List - Type 2 Diabetes Mellitus - Anxiety - Hypertension - Hyperlipidemia - Non-Alcoholic Fatty Liver Disease (NAFLD) Medications - Trulicity 1.5 mg weekly for diabetes management - Glipizide 10 mg BID for diabetes management - Pioglitazone 30 mg daily for diabetes management - Lexapro for anxiety - Lisinopril 2.5 mg for hypertension and renal protection in diabetes - Simvastatin 40 mg for hyperlipidemia control Review of Systems - Endocrine: Reports fluctuating blood sugars (over 200 to 118 mg/dL). - Dermatologic: Reports toenail discomfort, attributed to footwear. - Gastrointestinal: Reports history of Non-Alcoholic Fatty Liver Disease. General: No fever no chills neurological: No headaches no dizziness ear nose throat: No sore throat no hearing difficulty no ear pain cardiovascular: No syncope, no chest pain, no palpitations gastrointestinal: No nausea vomiting or diarrhea endocrine: No polyuria polydipsia no heat intolerance genitourinary: No dysuria skin: No new complaints Physical Exam general: No acute distress HEENT: No acute findings neck: Supple respiratory system: Able to talk in full sentences, no audible wheeze no stridor cardiovascular: S1-S2 gastrointestinal: No pain extremities: No new findings MICROBIOLOGY COORDINATOR: Alert awake oriented x3 motor sensory intact skin: Normal turgor Patient Instructions - Continue taking diabetes, hypertension, anxiety, and hyperlipidemia medications as prescribed. - Maintain regular monitoring of blood glucose levels and record results. - Wear appropriate footwear to alleviate toenail discomfort and avoid excessive trimming. - Aim for weight loss to address fatty liver disease. - Complete blood work before next visit and bring sugar level records. - Schedule next visit for follow-up in three months. [facility] Medical History Tubular adenoma Elevated cholesterol Diabetes Breast cancer in female Surgical History Hx of colonoscopy History of lumpectomy of left breast Family History Father Cancer Mother Stroke CVD (cardiovascular disease) Social History Household Members: Spouse Housing: House Alcohol intake: never Patient Tobacco Use Status: Never used Tobacco e-Cigarette/Vaping Use: Never Used service: No Current occupational status: employed Current occupational exposures/hazards: No Cognitive needs: No Hearing needs: No Vision needs: Yes Questionnaire PHQ-9 Over the last 2 weeks, how often have you been bothered by any of the following problems? 1. Little interest or pleasure in doing things: not at all 2. Feeling down, depressed, or hopeless: not at all 3. Trouble falling or staying asleep, or sleeping too much: not at all 4. Feeling tired or having little energy: not at all 5. Poor appetite or overeating: not at all 6. Feeling bad about yourself - or that you are a failure or have let yourself or your family down: not at all 7. Trouble concentrating on things, such as reading the newspaper or watching television: not at all 8. Moving or speaking so slowly that other people could have noticed. Or the opposite - being so fidgety or restless that you have been moving around a lot more than usual: not at all 9. Thoughts that you would be better off or of hurting yourself in some way: not at all Total score: 0 Depression Screening Interpretation: Negative Depression Screening Done: Yes 56085 - PHQ-9 Billing: Yes Source: Developed by Drs. Rowdy Chamberlain, Ekaterina Ruth, Juan J Boyer and colleagues, with an educational sherry from [employer] computer. Thrive Questionnaire Date Thrive assessed: 05/18/24 I am a: Patient What is your living situation today?: I have a steady place to live Within the past 12 months, did the food you bought not last and you didn't have the money to get more?: I choose not to answer this question Within the past 12 months, did you worry whether your food would run out before you got money to buy more?: I choose not to answer this question Do you have trouble paying for medicines?: I choose not to answer this question Do you have trouble getting transportation to medical appointments?: I choose not to answer this question Do you have trouble paying your heating and electricity bill?: I choose not to answer this question Do you have trouble taking care of your child, family member or friend?: I choose not to answer this question Do you have trouble with day-to-day activities such as bathing, preparing meals, shopping, managing finances, etc.?: I choose not to answer this question Are you currently unemployed and looking for a job?: I choose not to answer this question Are you interested in more education?: I choose not to answer this question Please select the resources that you would like help with: Transportation and None Currently or been in a relationship where the following occur: I choose not to answer THRIVE Score: 0 AUDIT C Alcohol Use Questionnaire (AUDIT-C) 1. How often do you have a drink containing alcohol?: Never Total Score: 0 ATIYA-7 AMB Questionnaire ATIYA-7 Date ATIYA - 7 assessed: 05/18/24 Feeling nervous, anxious, or on edge: 0 = Not at all Not being able to stop or control worryin = Not at all Worrying too much about different things: 0 = Not at all Trouble relaxin = Not at all Being so restless that it is hard to sit still: 0 = Not at all Becoming easily annoyed or irritable: 0 = Not at all Feeling afraid as if something awful might happen: 0 = Not at all Total ATIYA-7 score (0-4 normal; 5-9 mild; 10-14 moderate; 15-21 severe): 0 Source: Developed by Drs. Rowdy Chamberlain, Ekaterina Ruth, Juan J Boyer and colleagues, with an educational sherry from [employer] computer. Physical exam (Primary Care) Vital Signs: Last Vital Signs Pulse 71 10/20/24 08:54 BP 120/66 10/20/24 08:54 Pulse Ox 96 10/20/24 08:54 Oxygen Delivery Method Room Air 10/20/24 08:54 BMI result Body Mass Index 26.9 Tobacco/Smoking Status: Tobacco use Status Tobacco use date assessed 10/20/24 10/20/24 08:56 Patient Tobacco Use Status Never used Tobacco 10/20/24 08:53 e-Cigarette/Vaping Use Never Used 10/20/24 08:53 Depression Screening Interpretation: Negative Thrive Assessment: Date of Thrive Assessment Date Thrive assessed 05/18/24 10/20/24 08:53 Currently or been in a relationship where the following occur: I choose not to answer Coding Level of Care Code Est Pt Level 4 (18694) Complex EM visit Add On G2211 Diagnoses Diabetes 1.5, managed as type 2 E13.9 Lipid disorder E78.9 Anxiety, generalized F41.1 Additional Codes PHQ-9 - 65314 - PHQ-9 Billing: Yes ([id number]) Assessment & Plan Assessment & Plan (1) Diabetes 1.5, managed as type 2: Code(s): E13.9 - Other specified diabetes mellitus without complications Category: Medical (2) Lipid disorder: Code(s): E78.9 - Disorder of lipoprotein metabolism, unspecified Category: Medical (3) Anxiety, generalized: Code(s): F41.1 - Generalized anxiety disorder Category: Medical Plan Assessment and Plan 64 year old female with history of Type 2 Diabetes Mellitus, Anxiety, Hypertension, Hyperlipidemia, presenting with concerns about diabetes management and foot discomfort . Her blood glucose levels have shown improvement, now occasionally reaching as low as 118 mg/dL, with higher readings typically around 160 mg/dL. She is managing her diabetes with medications and reports no need for additional refills at this time. she visits a manufacturing specialist yearly. The patient has a known diagnosis of Non-Alcoholic Fatty Liver Disease (NAFLD) and a recent assessment recommended weight loss. 1. Type 2 Diabetes Mellitus Continue current regimen of Trulicity 1.5 mg weekly, glipizide 10 mg BID, and pioglitazone 30 mg daily. Emphasize importance of regular blood glucose monitoring. Encouraged patient to maintain records of glucose levels to bring for subsequent visits. Reinforce diet and exercise modifications. 2. Hypertension Maintain lisinopril 2.5 mg regimen. Continue routine blood pressure monitoring. 3. Hyperlipidemia Continue simvastatin 40 mg. Lipid levels to be monitored periodically. 4. Anxiety Continue current Lexapro regimen. Patient did not express need for change in current management. 5. Fatty (change of) liver, not elsewhere classified K76.0 Reinforce weight loss as a cornerstone intervention. Continued monitoring of liver function tests is advisable; order for blood tests placed. Diagnostic results - Labs: - Complete Blood Count (CBC) conducted on August 12 Problem List - Type 2 Diabetes Mellitus - Anxiety - Hypertension - Hyperlipidemia - Non-Alcoholic Fatty Liver Disease (NAFLD) Medications - Trulicity 1.5 mg weekly for diabetes management - Glipizide 10 mg BID for diabetes management - Pioglitazone 30 mg daily for diabetes management - Lexapro for anxiety - Lisinopril 2.5 mg for hypertension and renal protection in diabetes - Simvastatin 40 mg for hyperlipidemia control Review of Systems - Endocrine: Reports fluctuating blood sugars (over 200 to 118 mg/dL). - Dermatologic: Reports toenail discomfort, attributed to footwear. - Gastrointestinal: Reports history of Non-Alcoholic Fatty Liver Disease. General: No fever no chills neurological: No headaches no dizziness ear nose throat: No sore throat no hearing difficulty no ear pain cardiovascular: No syncope, no chest pain, no palpitations gastrointestinal: No nausea vomiting or diarrhea endocrine: No polyuria polydipsia no heat intolerance genitourinary: No dysuria skin: No new complaints Physical Exam general: No acute distress HEENT: No acute findings neck: Supple respiratory system: Able to talk in full sentences, no audible wheeze no stridor cardiovascular: S1-S2 gastrointestinal: No pain extremities: No new findings MICROBIOLOGY COORDINATOR: Alert awake oriented x3 motor sensory intact skin: Normal turgor Patient Instructions - Continue taking diabetes, hypertension, anxiety, and hyperlipidemia medications as prescribed. - Maintain regular monitoring of blood glucose levels and record results. - Wear appropriate footwear to alleviate toenail discomfort and avoid excessive trimming. - Aim for weight loss to address fatty liver disease. - Complete blood work before next visit and bring sugar level records. - Schedule next visit for follow-up in three months. Orders: Orders Microalbumin, Random (w Creat) Today E13.9 - Other specified diabetes mellitus without complications, E78.9 - Disorder of lipoprotein metabolism, unspecified, F41.1 - Generalized anxiety disorder Hemoglobin A1c Today E13.9 - Other specified diabetes mellitus without complications, E78.9 - Disorder of lipoprotein metabolism, unspecified, F41.1 - Generalized anxiety disorder Complete Blood Count Auto Diff Today E13.9 - Other specified diabetes mellitus without complications, E78.9 - Disorder of lipoprotein metabolism, unspecified, F41.1 - Generalized anxiety disorder Comprehensive [place]. Panel Fast Today E13.9 - Other specified diabetes mellitus without complications, E78.9 - Disorder of lipoprotein metabolism, unspecified, F41.1 - Generalized anxiety disorder Lipid Panel Today E13.9 - Other specified diabetes mellitus without complications, E78.9 - Disorder of lipoprotein metabolism, unspecified, F41.1 - Generalized anxiety disorder
[2024-10-20 08:54] VITALS: BP 120/66; PULSE 71; O2SAT 96; BMI 26.9
== END 2024-10-20 09:11 | disposition home or self-care (01) ==
PROVIDERS: PCP Internal Medicine; Visit Provider Internal Medicine
DX: E13.9 Other specified diabetes mellitus without complications (principal); E78.9 Disorder of lipoprotein metabolism, unspecified; F41.1 Generalized anxiety disorder

== ENCOUNTER → 2024-10-20 08:48 | Outpatient (BNVA) | payer MEDICARE, OTHER, SELFPAY | PROVIDERS: PCP Internal Medicine; Visit Provider Internal Medicine | DX: E13.9 Other specified diabetes mellitus without complications (principal); E78.9 Disorder of lipoprotein metabolism, unspecified; F41.1 Generalized anxiety disorder | CPT/HCPCS: 96127; 99212 ==

== ENCOUNTER 2024-11-23 10:20 | Outpatient (REF) | payer MEDICARE, OTHER, SELFPAY | END 2024-11-23 10:21 | disposition home or self-care (01) | LOC: HO.MAMMO 10:20 | PROVIDERS: PCP Internal Medicine; Visit Provider Internal Medicine | DX: Z12.31 Encounter for screening mammogram for malignant neoplasm of breast (principal) | CPT/HCPCS: 77063; 77067 ==

== ENCOUNTER → 2024-11-23 11:00 | Outpatient (BNV) | payer MEDICARE, OTHER, SELFPAY | PROVIDERS: PCP Internal Medicine; Visit Provider Internal Medicine | DX: Z12.31 Encounter for screening mammogram for malignant neoplasm of breast (principal) | CPT/HCPCS: 77063; 77067 ==

== ENCOUNTER 2024-12-13 08:15 | Day surgery (SDC) | payer MEDICARE, OTHER, SELFPAY ==
[2024-12-09 14:29] VITALS: BMI 27.1
--- NOTE | 2024-12-10 11:56 | P.CONAN_ITS ---
Documented by User: Magdalena Friedman NP 12/10/24 11:56 HPI - Anesthesia Eval Consult details Narrative: 64yo F for Colonoscopy Anesthesia Pre-Procedure Meds Is the patient on any of the following meds?: GLP1/DPP4 PMFSH Active Problems Active Problems: All Active Problems Anxiety, generalized (Acute) Difficulty sleeping (Acute) Nervously anxious (Acute) History of clenching of mandible (Acute) Teeth grinding (Acute) Stress (Acute) Varicose veins of left lower extremity with inflammation (Acute) Ankle swelling (Acute) Facial swelling (Acute) Environmental allergies (Acute) Precordial chest pain (Acute) Palpitations (Acute) Swelling of both lower extremities (Acute) Head congestion (Acute) Uncontrolled diabetes mellitus (Acute) Encounter for routine gynecological examination (Acute) Encounter for general adult medical examination with abnormal findings (Acute) Lymphadenopathy, occipital (Acute) Hospital discharge follow-up (Acute) Dizziness (Acute) Tubular adenoma (Acute) Diabetes 1.5, managed as type 2 (Acute) High cholesterol (Acute) Screening for colon cancer (Acute) Lipid disorder (Acute) Past Medical History Medical History Tubular adenoma Elevated cholesterol Diabetes Breast cancer in female Family History Family History Father Cancer Mother Stroke CVD (cardiovascular disease) Family history of problems with anesthesia: No Surgical History Surgical History Hx of colonoscopy History of lumpectomy of left breast History of Problems with Anesthesia: No Social History Social History Household Members: Spouse Housing: House Are you a primary healthcare technician to a significant other at home: No Do you presently have visiting nurse or other home services: No Alcohol intake: never Patient Tobacco Use Status: Never used Tobacco e-Cigarette/Vaping Use: Never Used Second Hand Smoke Exposure: No Use of substances other than those prescribed or required for medical reasons: No Have you been hit, kicked, punched, or otherwise hurt by someone within the past year? If so, by whom?: No Are you DNR?: No Advance Directives: No Advance Directives Information Provided: Yes Advance Directives on File: No Recently lost weight without trying: No Nutrition Risks: No Nutritional Risk Patient : No : No Poor oral hygiene: No service: No Current occupational status: employed Current occupational exposures/hazards: No Cognitive needs: No Hearing needs: No Vision needs: Yes Meds Allergies Allergy/AdvReac Type Severity Reaction Status Date / Time No Known Allergies Allergy Verified 10/20/24 08:54 [No Known Allergies*] Exam Height,Weight and Vital Signs: Height 5 ft Weight 63.049 kg Assessment and Plan Assessment Anesthesia Assessment: Chart Reviewed Final Anesthetic Review Family History of Problems with Anesthesia: No History of Problems with Anesthesia: No Documented by User: Eugenio Leal MD 12/13/24 10:30 PMFSH Past Medical History Medical History Tubular adenoma Elevated cholesterol Diabetes Breast cancer in female Family History Family History Father Cancer Mother Stroke CVD (cardiovascular disease) Surgical History Surgical History Hx of colonoscopy History of lumpectomy of left breast Social History Social History Household Members: Spouse Housing: House Are you a primary healthcare technician to a significant other at home: No Do you presently have visiting nurse or other home services: No Alcohol intake: never Patient Tobacco Use Status: Never used Tobacco e-Cigarette/Vaping Use: Never Used Second Hand Smoke Exposure: No Use of substances other than those prescribed or required for medical reasons: No Have you been hit, kicked, punched, or otherwise hurt by someone within the past year? If so, by whom?: No Are you DNR?: No Advance Directives: No Advance Directives Information Provided: Yes Advance Directives on File: No Recently lost weight without trying: No Nutrition Risks: No Nutritional Risk Patient : No : No Poor oral hygiene: No service: No Current occupational status: employed Current occupational exposures/hazards: No Cognitive needs: No Hearing needs: No Vision needs: Yes Meds Allergies Allergy/AdvReac Type Severity Reaction Status Date / Time No Known Allergies Allergy Verified 10/20/24 08:54 [No Known Allergies*] Exam Airway Mallampati Class: III TM Dist: >3cm Neck ROM: Full Assessment and Plan Assessment Anesthesia Assessment: Anesthesia Plan Discussed Final Anesthetic Review NPO: Yes ASA Class: III Final Preanesthetic Review: No Changes in Pt Med Stat, Meds/Allgs Chart Reviewed, Consent Obtained/Reviewed, Anes Risks/Benef Reviewed and DNR Form (If Appl.) Patient Risk: Intermediate Procedure Risk: Low Anesthetic Plan Anesthetic Plan: TIVA Disposition: Standard PACU
--- NOTE | 2024-12-13 10:28 | MHC.SHP ---
Pre-Procedural Eval Section A - 24 Hr Update-Section A only Date of Service: 12/13/24 The patient is an INPATIENT: No The patient has been examined within 24 hours of the surgical procedure. The History & Physical has been completed within 30 days and I have reviewed it.: No Section B - Complete if H&P > 30 days Chief Complaint: Surveillance for colon polyps Details of Present Illness: Colon cancer screening Relevant Family History (Specify if Yes): No Relevant Social History: None Present Medications: see Short Stay Collaborative assessment Medical History: Significant History (Breast cancer in female Diabetes) History of Previous Operations: Relevant previous surgery/procedure and date(s) (History of lumpectomy of left breast Hx of colonoscopy) Allergies: Allergies Allergy/AdvReac Type Severity Reaction Status Date / Time No Known Allergies Allergy Verified 10/20/24 08:54 [No Known Allergies*] Review of Systems Sugical H&P ROS: Negative: Constitution, Cardiovascular, Respiratory and Gastrointestinal Exam Surgical H&P Exam: Normal: Heart, Normal: Lungs, Normal: Extremities and Normal: Abdomen Plan Diagnosis/Plan: Unchanged I have reviewed the history and physical and performed a pertinent physical examination on my patient. No changes have occurred unless specified. Time Spent With Patient Time: Total time managing care of this patient today ____ minutes.
[2024-12-13 10:54] LABS: Glucose, Whole Blood 176 mg/dL (60-115)
[2024-12-13 11:09] VITALS: BP 119/66; PULSE 56; RESP 15; TEMP 36.3; O2SAT 96
--- NOTE | 2024-12-13 11:09 | P.OPN-COLO_ITS ---
Colonoscopy Operative Note Operative Note Date of Service: 12/13/24 Narrative: COLONOSCOPY TILL CECUM Pre-op diagnosis: Surveillance for colon polyps. Post-op diagnosis:? Diverticulosis, hemorrhoids Endoscopist:? Keyona Bermudez MD Anesthesia:?MAC Consent: Indications for the procedure and potential complications of bleeding, perforation, reaction to medications and missed diagnosis were discussed with the patient and informed consent was obtained. Instrument: Olympus PCF H 190 L variable stiffness pediatric colonoscope Monitoring: Vital signs and clinical assessment, intermittent blood pressure monitoring, continuous EKG monitoring, Pulse oximetry and Carbon Dioxide monitoring were done throughout the procedure. Please see anesthesia flowsheet. Colon withdrawl time was 15 minutes. Procedure: The patient was placed in the left lateral decubitis position and pre-procedure medications were administered. After a digital rectal examination of the ano-rectum, the video colonoscope was inserted into the rectum and advanced through the colon to the cecum. The colonoscope was slowly withdrawn in a retrograde panoramic fashion and the colon mucosa was carefully examined including a retroflexed view of the rectum. Findings and interventions are described below. Procedure Difficulty: without difficulty Findings: Terminal Ileum: Not evaluated Cecum: Normal Ascending Colon: Normal Transverse Colon: Normal Descending Colon: Normal Sigmoid Colon: Moderate diverticulosis Rectum: Normal Ano-rectum: Moderate internal hemorrhoids Colon preparation: Good after some irrigation. [place] Bowel Preparation Scale Right colon; 2 Transverse colon: 2 Left colon; 2 (0 = Unprepared colon segment with mucosa not seen due to solid stool that cannot be cleared. 1 = Portion of mucosa of the colon segment seen, but other areas of the colon segment not well seen due to staining, residual stool and/or opaque liquid. 2 = Minor amount of residual staining, small fragments of stool and/or opaque liquid, but mucosa of colon segment seen well. 3 = Entire mucosa of colon segment seen well with no residual staining, small fragments of stool or opaque liquid) Impression and Post Procedure Diagnosis: Colonoscopy Findings: No polyps were detected Moderate diverticulosis seen in the sigmoid colon Moderate hemorrhoids on retroflexed exam. Plan: Pt has a FU appointment on [ ] with [Genny Patel NP], [MAGAN Ahn], [Brittny Rodriguez], [Dr Bermudez] Repeat Colonoscopy in 5 years if polyps are adenomatous and 10 year if polyps are hyperplastic. Above findings were reviewed with the patient and relevant handouts were given and the discharge area.
[2024-12-13 11:32] VITALS: BP 118/70; PULSE 54; RESP 17; TEMP 36.1; O2SAT 98
== END 2024-12-13 12:20 | disposition home or self-care (01) ==
PROVIDERS: PCP Internal Medicine; Visit Provider Internal Medicine Gastroenterology
PROC: 0DJD8ZZ Inspection of Lower Intestinal Tract, Via Natural or Artificial Opening Endoscopic (ICD-10-PCS; CPT 45378; principal; 2024-12-13 10:10)
DX: Z12.11 Encounter for screening for malignant neoplasm of colon (principal); K57.30 Diverticulosis of large intestine without perforation or abscess without bleeding; K64.8 Other hemorrhoids; Z86.0101 Personal history of adenomatous and serrated colon polyps; R14.0 Abdominal distension (gaseous); E11.9 Type 2 diabetes mellitus without complications; E78.5 Hyperlipidemia, unspecified; Z85.3 Personal history of malignant neoplasm of breast
CPT/HCPCS: G0105; 82947; J2003; J2704

== ENCOUNTER → 2024-12-13 08:15 | Outpatient (BNV) | payer MEDICARE, OTHER, SELFPAY | PROVIDERS: PCP Internal Medicine; Visit Provider Internal Medicine Gastroenterology | DX: Z12.11 Encounter for screening for malignant neoplasm of colon (principal); Z86.0100 Personal history of colon polyps, unspecified; K57.30 Diverticulosis of large intestine without perforation or abscess without bleeding; K64.8 Other hemorrhoids | CPT/HCPCS: G0105 ==

== ENCOUNTER 2025-01-15 08:11 | Outpatient (REF) | payer MEDICARE, OTHER, SELFPAY ==
[2025-01-15 11:21] LABS: MANUAL DIFF FLAG NO
[2025-01-15 11:27] LABS: Basophils Percent Auto 0.2 % (0-2); Eosinophils Absolute Auto 0.1 X10*3/uL (0.0-0.4); Eosinophils Percent Auto 1.8 % (0-4); Hematocrit 39.4 % (37.0-47.0); Hemoglobin 13.2 g/dl (12.0-16.0); Imm Gran Abs Auto 0.02 X10*3/uL (0.00-0.03); Imm Gran Pct Auto 0.4 % (0.0-0.4); Mean Corpuscular HGB Conc 33.5 g/dl (31.0-35.0); Mean Corpuscular Hemoglobin 30.5 pg (27.0-33.0); Mean Platelet Volume 10.1 fL (9.4-12.3); Monocytes Absolute Auto 0.4 X10*3/uL (0.1-1.2); Monocytes Percent Auto 8.4 % (2-11); Neutrophils Percent Auto 44.2 % (45-73); Platelet Count 227 X10*3/uL (160-400); Red Blood Count 4.33 X10*6/uL (4.20-5.50); Red Cell Distribution Width 13.2 % (11.0-16.0); White Blood Count 4.5 X10*3/uL (4.8-10.8)
[2025-01-15 11:39] LABS: Estimated Average Glucose 212 mg/dL; Hemoglobin A1C 259.8853 umol/L; Total Hemoglobin (HGBA1C) 3470.2969 umol/L
[2025-01-15 11:52] LABS: Microalbum/Creatinine Ratio Ur 17.9 ug/mg cr (<30)
[2025-01-15 12:06] LABS: Alanine Aminotransferase 17 U/L (0-31); Albumin Level 4.1 g/dL (3.5-5.0); Alkaline Phosphatase 50 U/L (39-117); Anion Gap 13 (12-20); Aspartate Amino Transferase 19 U/L (5-31); Bilirubin Total 0.5 mg/dL (0.0-1.0); Blood Urea Nitrogen 14 mg/dL (9-16); Calcium 9.2 mg/dL (8.4-10.2); Carbon Dioxide 26 mmol/L (22-29); Chloride 107 mmol/L (96-108); Cholesterol 159 mg/dL (<200); Estimated Glomerular Filt Rate > 60; Glucose Fasting 140 mg/dL (60-99); HDL Cholesterol 64 mg/dL (>40); LDL Cholesterol Calculated 73 mg/dL (<100); Potassium 3.9 mmol/L (3.3-5.1); Sodium 142 mmol/L (135-145); Total Protein 7.2 g/dL (6.5-8.0); Triglycerides 114 mg/dL (<150)
== END 2025-01-15 08:12 | disposition home or self-care (01) ==
LOC: HO.HMGCLDS 08:11
PROVIDERS: PCP Internal Medicine; Visit Provider Internal Medicine
DX: E13.9 Other specified diabetes mellitus without complications (principal); E78.9 Disorder of lipoprotein metabolism, unspecified; F41.1 Generalized anxiety disorder
CPT/HCPCS: 36415; 80053; 80061; 82043; 82570; 83036; 85025

== ENCOUNTER 2025-01-18 09:37 | Outpatient (AMB) | payer MEDICARE, OTHER, SELFPAY ==
[2025-01-18 09:38] VITALS: BP 116/76; PULSE 71; RESP 18; TEMP 36.8; O2SAT 95; BMI 27.6
--- NOTE | 2025-01-18 09:38 | MHC.PC.OV ---
Vital Signs 01/18/25 09:38 Height 5 ft Weight 141 lb 8 oz BMI 27.6 BP 116/76 Blood Pressure Location Rt brachial Position Sitting Respiration 18 Pulse 71 Pulse Source Pulse Oximeter Temp 98.2 F Temp Source Oral Pulse Oximetry (%) 95 Oxygen Delivery Method Room Air Intake Visit Reasons: 3m follow up DM Allergies No Known Allergies [No Known Allergies*] Allergy (Verified 01/18/25 09:39) Medication List - Last Reconciled 01/18/25 by Mary Pina MD dulaglutide 1.5 mg (0.5 mL) subcut QWEEK 30 days escitalopram oxalate (Lexapro) 10 mg PO DAILY FreeStyle Lite Strips (blood sugar diagnostic) BID NS glipizide 10 mg PO BID 90 days lancets As directed lisinopril 2.5 mg PO DAILY 90 days lorazepam 0.5 mg PO BEDTIME PRN pioglitazone (Actos) 30 mg PO DAILY 90 days polyethylene glycol 3350 (Miralax) 17 grams PO DAILY simvastatin 40 mg PO BEDTIME 90 days Tobacco use date assessed: 01/18/25 Fall risk assessment: No Falls in past year Last assessed Fall Risk: 01/18/25 Dental Screening Dental Screen Date: 01/18/25 Did you have a dental visit in the last 12 months?: Yes Did you have a dental problem in the last 6 months where you did not have access to dental care?: No Was dental information given to patient?: Patient has dentist HPI 3m follow up DM HPI Details History - 64 year old female with history of Type 2 Diabetes Mellitus, Anxiety, Hypertension, Hyperlipidemia, presenting with concerns about diabetes management . patient has a known diagnosis of Non-Alcoholic Fatty Liver Disease (NAFLD) . - Her hemoglobin A1c remains at 9.0%, same as in August, indicating poor control of her Type 2 Diabetes Mellitus. - Despite implementing lifestyle changes such as eating less and reducing sugar intake, her glucose levels remain elevated. - She is currently on Trulicity 1.5 mg; however, her diabetes is not adequately managed on this regimen. - The patient is aware of the potential renal complications associated with uncontrolled diabetes. - Blood pressure management is reported as stable. Problem List - Type 2 Diabetes Mellitus - Anxiety - Hypertension - Hyperlipidemia - Non-Alcoholic Fatty Liver Disease (NAFLD) 1. Type 2 Diabetes Mellitus Increase Trulicity to 3 mg from 1.5 once a week, continue with glipizide 10 mg b.i.d. and pioglitazone 30 mg daily. Labs in 3 months 2. Hypertension Maintain lisinopril 2.5 mg regimen. Continue routine blood pressure monitoring. 3. Hyperlipidemia Continue simvastatin 40 mg. Lipid levels to be monitored periodically. 4. Anxiety Continue current Lexapro regimen. Patient did not express need for change in current management. 5. Fatty (change of) liver, not elsewhere classified K76.0 Reinforce weight loss as a cornerstone intervention. Continued monitoring of liver function tests is advisable; order for blood tests placed. 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 - Monitoring: Schedule a follow-up blood test prior to the next appointment in three months. - Lifestyle: Continue dietary modifications by eating less and limiting sugar and salt intake. - Appointment: Book a follow-up visit in three months for evaluation of the diabetes management plan. - Share provided information with the patient's . Review of Systems - General: No fever no chills - Neurological: No headaches no dizziness - Ear nose throat: No sore throat no hearing difficulty no ear pain - Cardiovascular: No syncope, no chest pain, no palpitations - Gastrointestinal: No nausea vomiting or diarrhea Physical Exam General: No acute distress HEENT: No acute findings Neck: Supple Respiratory system: Able to talk in full sentences, no audible wheeze cardiovascular: S1-S2 regular in rate and rhythm, blood pressure is very good Gastrointestinal: No pain Extremities: No new findings PHARMACEUTICAL SERVICE REPRESENTATIVE: Alert awake oriented x3 motor sensory intact Skin: Normal turgor - Schedule next visit for follow-up in three months. [facility] Medical History Tubular adenoma Elevated cholesterol Diabetes Breast cancer in female Surgical History Hx of colonoscopy History of lumpectomy of left breast Family History Father Cancer Mother Stroke CVD (cardiovascular disease) Social History Household Members: Spouse Housing: House Are you a primary family day care worker to a significant other at home: No Do you presently have visiting nurse or other home services: No Alcohol intake: never Patient Tobacco Use Status: Never used Tobacco e-Cigarette/Vaping Use: Never Used Second Hand Smoke Exposure: No service: No Current occupational status: employed Current occupational exposures/hazards: No Cognitive needs: No Hearing needs: No Vision needs: Yes Questionnaire PHQ-9 Over the last 2 weeks, how often have you been bothered by any of the following problems? [id number] - PHQ-9 Billing: Patient declined-do not bill Source: Developed by Drs. Rowdy Chamberlain, Ekaterina Ruth, Juan J Boyer and colleagues, with an educational sherry from [employer]. Thrive Questionnaire Date Thrive assessed: 01/18/25 I am a: Patient What is your living situation today?: I have a steady place to live Within the past 12 months, did the food you bought not last and you didn't have the money to get more?: I choose not to answer this question Within the past 12 months, did you worry whether your food would run out before you got money to buy more?: I choose not to answer this question Do you have trouble paying for medicines?: I choose not to answer this question Do you have trouble getting transportation to medical appointments?: I choose not to answer this question Do you have trouble paying your heating and electricity bill?: I choose not to answer this question Do you have trouble taking care of your child, family member or friend?: I choose not to answer this question Do you have trouble with day-to-day activities such as bathing, preparing meals, shopping, managing finances, etc.?: I choose not to answer this question Are you currently unemployed and looking for a job?: I choose not to answer this question Are you interested in more education?: I choose not to answer this question Currently or been in a relationship where the following occur: I choose not to answer THRIVE Score: 0 AUDIT C Alcohol Use Questionnaire (AUDIT-C) 1. How often do you have a drink containing alcohol?: Never 3. How often do you have six or more drinks on one occasion?: Never Total Score: 0 Score Reviewed/Action Taken: Yes ATIYA-7 AMB Questionnaire ATIYA-7 Date ATIYA - 7 assessed: 01/18/25 Feeling nervous, anxious, or on edge: 0 = Not at all Not being able to stop or control worryin = Not at all Worrying too much about different things: 0 = Not at all Trouble relaxin = Not at all Being so restless that it is hard to sit still: 0 = Not at all Becoming easily annoyed or irritable: 0 = Not at all Feeling afraid as if something awful might happen: 0 = Not at all Total ATIYA-7 score (0-4 normal; 5-9 mild; 10-14 moderate; 15-21 severe): 0 Source: Developed by Drs. Rowdy Chamberlain, Ekaterina Ruth, Juan J Boyer and colleagues, with an educational sherry from [employer]. ATIYA-7 Assessment Billing ATIYA-7 Assessment Tool: ATIYA-7 Assessment 79633 Physical exam (Primary Care) Vital Signs: Last Vital Signs Temp 98.2 F 01/18/25 09:38 Pulse 71 01/18/25 09:38 Resp 18 01/18/25 09:38 BP 116/76 01/18/25 09:38 Pulse Ox 95 01/18/25 09:38 Oxygen Delivery Method Room Air 01/18/25 09:38 BMI result Body Mass Index 27.6 Tobacco/Smoking Status: Tobacco use Status Tobacco use date assessed 01/18/25 01/18/25 09:39 Patient Tobacco Use Status Never used Tobacco 01/18/25 09:39 e-Cigarette/Vaping Use Never Used 01/18/25 09:39 Thrive Assessment: Date of Thrive Assessment Date Thrive assessed 01/18/25 01/18/25 09:41 Currently or been in a relationship where the following occur: I choose not to answer Coding Level of Care Code Est Pt Level 4 (80355) Complex EM visit Add On G2211 Diagnoses Diabetes 1.5, managed as type 2 E13.9 Lipid disorder E78.9 Uncontrolled type 2 diabetes mellitus with hyperglycemia E11.65 Diabetes mellitus type: type 2 Glycemic state: with hyperglycemia Anxiety, generalized F41.1 Difficulty sleeping G47.9 Nervously anxious R45.0 Additional Codes ATIYA-7 Assessment Billing - ATIYA-7 Assessment Tool: ATIYA-7 Assessment 59611 ([id number]) Assessment & Plan Assessment & Plan (1) Diabetes 1.5, managed as type 2: Code(s): E13.9 - Other specified diabetes mellitus without complications Category: Medical (2) Lipid disorder: Code(s): E78.9 - Disorder of lipoprotein metabolism, unspecified Category: Medical (3) Uncontrolled diabetes mellitus: Category: Medical Qualifiers: Diabetes mellitus type: type 2 Glycemic state: with hyperglycemia Qualified Code(s): E11.65 - Type 2 diabetes mellitus with hyperglycemia (4) Anxiety, generalized: Code(s): F41.1 - Generalized anxiety disorder Category: Medical (5) Difficulty sleeping: Code(s): G47.9 - Sleep disorder, unspecified Category: Medical (6) Nervously anxious: Code(s): R45.0 - Nervousness Category: Medical Plan History - 64 year old female with history of Type 2 Diabetes Mellitus, Anxiety, Hypertension, Hyperlipidemia, presenting with concerns about diabetes management . patient has a known diagnosis of Non-Alcoholic Fatty Liver Disease (NAFLD) . - Her hemoglobin A1c remains at 9.0%, same as in August, indicating poor control of her Type 2 Diabetes Mellitus. - Despite implementing lifestyle changes such as eating less and reducing sugar intake, her glucose levels remain elevated. - She is currently on Trulicity 1.5 mg; however, her diabetes is not adequately managed on this regimen. - The patient is aware of the potential renal complications associated with uncontrolled diabetes. - Blood pressure management is reported as stable. Problem List - Type 2 Diabetes Mellitus - Anxiety - Hypertension - Hyperlipidemia - Non-Alcoholic Fatty Liver Disease (NAFLD) 1. Type 2 Diabetes Mellitus Increase Trulicity to 3 mg from 1.5 once a week, continue with glipizide 10 mg b.i.d. and pioglitazone 30 mg daily. Labs in 3 months 2. Hypertension Maintain lisinopril 2.5 mg regimen. Continue routine blood pressure monitoring. 3. Hyperlipidemia Continue simvastatin 40 mg. Lipid levels to be monitored periodically. 4. Anxiety Continue current Lexapro regimen. Patient did not express need for change in current management. 5. Fatty (change of) liver, not elsewhere classified K76.0 Reinforce weight loss as a cornerstone intervention. Continued monitoring of liver function tests is advisable; order for blood tests placed. 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 - Monitoring: Schedule a follow-up blood test prior to the next appointment in three months. - Lifestyle: Continue dietary modifications by eating less and limiting sugar and salt intake. - Appointment: Book a follow-up visit in three months for evaluation of the diabetes management plan. - Share provided information with the patient's . Orders: Orders Hemoglobin A1c 3 Months E11.65 - Type 2 diabetes mellitus with hyperglycemia, E13.9 - Other specified diabetes mellitus without complications, E78.9 - Disorder of lipoprotein metabolism, unspecified, F41.1 - Generalized anxiety disorder, G47.9 - Sleep disorder, unspecified, R45.0 - Nervousness Microalbumin, Random (w Creat) 3 Months E11.65 - Type 2 diabetes mellitus with hyperglycemia, E13.9 - Other specified diabetes mellitus without complications, E78.9 - Disorder of lipoprotein metabolism, unspecified, F41.1 - Generalized anxiety disorder, G47.9 - Sleep disorder, unspecified, R45.0 - Nervousness Comprehensive Met. Panel 3 Months E11.65 - Type 2 diabetes mellitus with hyperglycemia, E13.9 - Other specified diabetes mellitus without complications, E78.9 - Disorder of lipoprotein metabolism, unspecified, F41.1 - Generalized anxiety disorder, G47.9 - Sleep disorder, unspecified, R45.0 - Nervousness Medications: Changed From dulaglutide 1.5 mg (0.5 mL) subcut QWEEK 30 days 2.5 mL 12RF To dulaglutide 3 mg (0.5 mL) subcut QWEEK 2.5 mL 3RF 30 days
== END 2025-01-18 09:58 | disposition home or self-care (01) ==
LOC: HO.HMCC 09:38
PROVIDERS: PCP Internal Medicine; Visit Provider Internal Medicine
DX: E11.65 Type 2 diabetes mellitus with hyperglycemia (principal); E78.9 Disorder of lipoprotein metabolism, unspecified; F41.1 Generalized anxiety disorder; G47.9 Sleep disorder, unspecified; R45.0 Nervousness

== ENCOUNTER → 2025-01-18 09:37 | Outpatient (BNVA) | payer MEDICARE, OTHER, SELFPAY | PROVIDERS: PCP Internal Medicine; Visit Provider Internal Medicine | DX: E78.9 Disorder of lipoprotein metabolism, unspecified (principal); E11.65 Type 2 diabetes mellitus with hyperglycemia; F41.1 Generalized anxiety disorder; R45.0 Nervousness; G47.9 Sleep disorder, unspecified | CPT/HCPCS: 96127; 99212 ==

== ENCOUNTER 2025-04-16 08:35 | Outpatient (REF) | payer MEDICARE, OTHER, SELFPAY ==
--- OUTSIDE RECORDS SUMMARY | 2025-04-16 08:37 | XMS_ITS | Clinical Summary ---
Author Organization [facility] Address [address] [place] [address] Care Team Providers Care Eligibility Supervisor Name Role Phone Community, Pcp Primary Care Provider Unavailabl e Medications No known medications Family History Medical History Relation Name Comments CA Breast Negative Hx CA Colon Negative Hx CA Ovarian Negative Hx CA Prostate Negative Hx Social History Tobacco Use Types Packs/Day Years Used Date Smoking Tobacco: Never Smokeless Tobacco: Never Alcohol Use Standard Drinks/Week Comments No 0 (1 standard drink = 0.6 oz pur e alcohol) Sex Assigned at Date Recorded Not on file Last Filed Vital Signs Vital Sign Reading Time Taken Comments Blood Pressure 140/90 06/16/2019 10:51 AM EDT Pulse 80 06/16/2019 10:51 AM EDT Temperature - - Respiratory Rate 16 06/16/2019 10:51 AM EDT Oxygen Saturation - - Inhaled Oxygen Concentration - - Weight 56.5 kg (124 lb 9.6 oz) 06/16/2019 10:51 AM EDT Height - - Body Mass Index - - Plan of Treatment Health Maintenance Due Date Last Done Comments Covid-19 Vaccine (#1) 1959 HEPATITIS C SCREENING 1977 DTAP/TDAP/TD (1 - Tdap) 1978 CHOLESTEROL SCREENING 1979 MAMMOGRAM 1999 COLON CANCER SCREENING 2009 SHINGLES VACCINE (1 of 2) 2009 BONE DENSITY SCREENING 01/07/2024 PNEUMOCOCCAL VACCINE (1 - PCV) 01/07/2024 BMI CHECK/ADVISE 11/03/2024 06/16/2019, 06/16/2019 INFLUENZA (Season Ended) 2025 Care Teams Eligibility Supervisor Relationship Specialty Start Date End Date Community, Pcp PCP - General Internal Medicine 04/09/19
[2025-04-16 11:53] LABS: Alanine Aminotransferase 19 U/L (0-31); Albumin Level 4.4 g/dL (3.5-5.0); Alkaline Phosphatase 55 U/L (39-117); Anion Gap 14 (12-20); Aspartate Amino Transferase 24 U/L (5-31); Bilirubin Total 0.7 mg/dL (0.0-1.0); Blood Urea Nitrogen 19 mg/dL (9-16); Calcium 9.4 mg/dL (8.4-10.2); Carbon Dioxide 26 mmol/L (22-29); Chloride 107 mmol/L (96-108); Estimated Glomerular Filt Rate > 60; Glucose Random 137 mg/dL (60-115); Potassium 3.8 mmol/L (3.3-5.1); Sodium 143 mmol/L (135-145); Total Protein 6.9 g/dL (6.5-8.0)
[2025-04-16 11:56] LABS: Estimated Average Glucose 192 mg/dL; Hemoglobin A1c % 8.3 % (<6.0)
[2025-04-16 12:09] LABS: Creatinine Urine 286.41 mg/dL; Microalbum/Creatinine Ratio Ur 12.9 ug/mg cr (<30)
== END 2025-04-16 08:36 | disposition home or self-care (01) ==
LOC: HO.HMGCLDS 08:35
PROVIDERS: PCP Internal Medicine; Visit Provider Internal Medicine
DX: E11.65 Type 2 diabetes mellitus with hyperglycemia (principal); E78.9 Disorder of lipoprotein metabolism, unspecified; F41.1 Generalized anxiety disorder; G47.9 Sleep disorder, unspecified; R45.0 Nervousness
CPT/HCPCS: 36415; 80053; 82043; 82570; 83036

== ENCOUNTER 2025-04-20 08:54 | Outpatient (AMB) | payer MEDICARE, OTHER, SELFPAY ==
[2025-04-20 08:56] VITALS: BP 126/74; PULSE 82; TEMP 36.7; O2SAT 97; BMI 28.6
--- NOTE | 2025-04-20 08:56 | MHC.PC.OV ---
Vital Signs 04/20/25 08:56 Height 5 ft Weight 146 lb 4 oz BMI 28.6 BP 126/74 Blood Pressure Location Rt brachial Position Sitting Pulse 82 Pulse Source Pulse Oximeter Temp 98.1 F Temp Source Oral Pulse Oximetry (%) 97 Oxygen Delivery Method Room Air Intake Visit Reasons: 3m follow up Allergies No Known Allergies (No Known Allergies*) Allergy (Verified 04/20/25 08:59) Medication List - Last Reconciled 04/20/25 by Mary Pina MD dulaglutide 3 mg (0.5 mL) subcut QWEEK 30 days escitalopram oxalate (Lexapro) 10 mg PO DAILY FreeStyle Lite Strips (blood sugar diagnostic) BID NS glipizide 10 mg PO BID 90 days lancets As directed lisinopril 2.5 mg PO DAILY 90 days lorazepam 0.5 mg PO BEDTIME PRN pioglitazone (Actos) 30 mg PO DAILY 90 days polyethylene glycol 3350 (Miralax) 17 grams PO DAILY simvastatin 40 mg PO BEDTIME 90 days Tobacco use date assessed: 01/18/25 Fall risk assessment: No Falls in past year Last assessed Fall Risk: 04/20/25 Dental Screening Dental Screen Date: 01/18/25 Was dental information given to patient?: Patient has dentist HPI 3m follow up HPI Details History - The patient is a 65-year-old female presenting with diabetes management. - Blood glucose levels have been variable: 167 mg/dL this morning, sometimes reaching 147 mg/dL, and occasionally as low as 97 mg/dL. - The patient's diet recently included noodles, which she believes can cause elevated blood sugar when eaten. - The patient's A1c level was 8.3% as of the 14 of this month, which is considered high. - The patient reports difficulty sleeping after high blood sugar readings. - The patient occasionally experiences leg swelling and sweating, with occurrences of cold sensations in the extremities. - The patient reports fungal infection on nails, and cold, pale feet off and on, due for podiatry visit Also need appointment with Ophthalmology for yearly checkup Medical History: - Type 2 Diabetes Mellitus - Diabetic Neuropathy - anxiety - toenail fungus - lipid disorder Medications: - Trulicity 3 mg for diabetes - Glipizide 10 mg twice daily for diabetes management - Lisinopril for hypertension - Pioglitazone once daily for diabetes - Simvastatin 40 mg for cholesterol management Social History: - The patient has difficulty managing blood sugar and does not frequently document blood sugar readings. - Consumes foods including noodles; diet noted to impact blood sugar levels. Diagnostic Results: - Labs: A1c level was 8.3% measured on the 14 of this month. Problem List - Type 2 Diabetes Mellitus - Elevated Hemoglobin A1c - Diabetic Neuropathy - lipid disorder - anxiety - difficulty sleeping - constipation - overweight Patient Instructions - Record your blood sugar readings and bring them to your next appointment. - Limit consumption of foods that can raise blood sugar, like noodles. - Continue taking your current medications as prescribed. - Schedule and attend annual foot and eye examinations. - Bring your to future appointments to help with communication. If possible Review of Systems - General: No fever no chills - Neurological: No headaches no dizziness - Ear nose throat: No sore throat no hearing difficulty no ear pain - Cardiovascular: No syncope, no chest pain, no palpitations - Gastrointestinal: No nausea vomiting or diarrhea - Endocrine: No polyuria polydipsia no heat intolerance - Genitourinary: No dysuria , no blood in urine Physical Exam General: No acute distress HEENT: No acute findings Neck: Supple Respiratory system: Able to talk in full sentences, no audible wheeze Cardiovascular: S1-S2 regular in rate and rhythm Gastrointestinal: No pain Extremities: Swelling noted, sometimes cold NEEDLE LOOM WEAVER: Alert awake oriented x3 motor sensory intact Skin: Normal turgor, fungal infection noted on nails PFSH Medical History Tubular adenoma Elevated cholesterol Diabetes Breast cancer in female Surgical History Hx of colonoscopy History of lumpectomy of left breast Family History Father Cancer Mother Stroke CVD (cardiovascular disease) Social History Household Members: Spouse Housing: House Are you a primary acute care assistant to a significant other at home: No Do you presently have visiting nurse or other home services: No Alcohol intake: never Patient Tobacco Use Status: Never used Tobacco e-Cigarette/Vaping Use: Never Used Second Hand Smoke Exposure: No service: No Current occupational status: employed Current occupational exposures/hazards: No Cognitive needs: No Hearing needs: No Vision needs: Yes Questionnaire PHQ-9 Over the last 2 weeks, how often have you been bothered by any of the following problems? 1. Little interest or pleasure in doing things: not at all 2. Feeling down, depressed, or hopeless: not at all 3. Trouble falling or staying asleep, or sleeping too much: several days 4. Feeling tired or having little energy: several days 5. Poor appetite or overeating: not at all 6. Feeling bad about yourself - or that you are a failure or have let yourself or your family down: not at all 7. Trouble concentrating on things, such as reading the newspaper or watching television: not at all 8. Moving or speaking so slowly that other people could have noticed. Or the opposite - being so fidgety or restless that you have been moving around a lot more than usual: not at all 9. Thoughts that you would be better off or of hurting yourself in some way: not at all Total score: 2 Depression Screening Interpretation: Negative Depression Screening Done: Yes [id number] - PHQ-9 Billing: Yes Source: Developed by Drs. Rowdy Chamberlain, Ekaterina Ruth, Juan J Boyer and colleagues, with an educational sherry from [employer]. Thrive Questionnaire Date Thrive assessed: 04/20/25 I am a: Patient ATIYA-7 AMB Questionnaire ATIYA-7 Date ATIYA - 7 assessed: 01/18/25 Source: Developed by Drs. Rowdy Chamberlain, Ekaterina Ruth, Juan J oByer and colleagues, with an educational sherry from [employer]. Physical exam (Primary Care) Vital Signs: Last Vital Signs Temp 98.1 F 04/20/25 08:56 Pulse 82 04/20/25 08:56 BP 126/74 04/20/25 08:56 Pulse Ox 97 04/20/25 08:56 Oxygen Delivery Method Room Air 04/20/25 08:56 BMI result Body Mass Index 28.6 Tobacco/Smoking Status: Tobacco use Status Tobacco use date assessed 01/18/25 04/20/25 09:02 Patient Tobacco Use Status Never used Tobacco 04/20/25 09:02 e-Cigarette/Vaping Use Never Used 04/20/25 09:02 PHQ-9: PHQ-9 Score PHQ-9: Total score 2 04/20/25 09:18 Depression Screening Interpretation: Negative Thrive Assessment: Date of Thrive Assessment Date Thrive assessed 04/20/25 04/20/25 09:02 Coding Level of Care Code Est Pt Level 4 (56423) Complex EM visit Add On G2211 Diagnoses Diabetes 1.5, managed as type 2 E13.9 Lipid disorder E78.9 Anxiety, generalized F41.1 Environmental allergies Z91.09 Swelling of both lower extremities M79.89 Difficulty sleeping G47.9 Additional Codes PHQ-9 - 42697 - PHQ-9 Billing: Yes ([id number]) Assessment & Plan Assessment & Plan (1) Diabetes 1.5, managed as type 2: Code(s): E13.9 - Other specified diabetes mellitus without complications Category: Medical (2) Lipid disorder: Code(s): E78.9 - Disorder of lipoprotein metabolism, unspecified Category: Medical (3) Anxiety, generalized: Code(s): F41.1 - Generalized anxiety disorder Category: Medical (4) Environmental allergies: Code(s): Z91.09 - Other allergy status, other than to drugs and biological substances Category: Medical (5) Swelling of both lower extremities: Code(s): M79.89 - Other specified soft tissue disorders Category: Medical (6) Difficulty sleeping: Code(s): G47.9 - Sleep disorder, unspecified Category: Medical Plan History - The patient is a 65-year-old female presenting with diabetes management. - Blood glucose levels have been variable: 167 mg/dL this morning, sometimes reaching 147 mg/dL, and occasionally as low as 97 mg/dL. - The patient's diet recently included noodles, which she believes can cause elevated blood sugar when eaten. - The patient's A1c level was 8.3% as of the 14th of this month, which is considered high. - The patient reports difficulty sleeping after high blood sugar readings. - The patient occasionally experiences leg swelling and sweating, with occurrences of cold sensations in the extremities. - The patient reports fungal infection on nails, and cold, pale feet off and on, due for podiatry visit Also need appointment with Ophthalmology for yearly checkup Medical History: - Type 2 Diabetes Mellitus - Diabetic Neuropathy - anxiety - toenail fungus - lipid disorder Medications: - Trulicity 3 mg for diabetes - Glipizide 10 mg twice daily for diabetes management - Lisinopril for hypertension - Pioglitazone once daily for diabetes - Simvastatin 40 mg for cholesterol management Social History: - The patient has difficulty managing blood sugar and does not frequently document blood sugar readings. - Consumes foods including noodles; diet noted to impact blood sugar levels. Diagnostic Results: - Labs: A1c level was 8.3% measured on the of this month. Problem List - Type 2 Diabetes Mellitus - Elevated Hemoglobin A1c - Diabetic Neuropathy - lipid disorder - anxiety - difficulty sleeping - constipation - overweight Patient Instructions - Record your blood sugar readings and bring them to your next appointment. - Limit consumption of foods that can raise blood sugar, like noodles. - Continue taking your current medications as prescribed. - Schedule and attend annual foot and eye examinations. - Bring your to future appointments to help with communication. If possible Orders: Orders Hemoglobin A1c 3 Months E13.9 - Other specified diabetes mellitus without complications, E78.9 - Disorder of lipoprotein metabolism, unspecified, F41.1 - Generalized anxiety disorder, G47.9 - Sleep disorder, unspecified, M79.89 - Other specified soft tissue disorders, Z91.09 - Other allergy status, other than to drugs and biological substances Comprehensive Met. Panel 3 Months E13.9 - Other specified diabetes mellitus without complications, E78.9 - Disorder of lipoprotein metabolism, unspecified, F41.1 - Generalized anxiety disorder, G47.9 - Sleep disorder, unspecified, M79.89 - Other specified soft tissue disorders, Z91.09 - Other allergy status, other than to drugs and biological substances Referrals Ophthalmology Referral E13.9 - Other specified diabetes mellitus without complications Podiatry Referral E13.9 - Other specified diabetes mellitus without complications Medications: Refilled lancets As directed 300 ea 3RF E13.9 - Other specified diabetes mellitus without complications
== END 2025-04-20 09:18 | disposition home or self-care (01) ==
LOC: HO.HMCC 08:55
PROVIDERS: PCP Internal Medicine; Visit Provider Internal Medicine
DX: E13.9 Other specified diabetes mellitus without complications (principal); E78.9 Disorder of lipoprotein metabolism, unspecified; F41.1 Generalized anxiety disorder; Z91.09 Other allergy status, other than to drugs and biological substances; M79.89 Other specified soft tissue disorders; G47.9 Sleep disorder, unspecified

== ENCOUNTER → 2025-04-20 08:54 | Outpatient (BNVA) | payer MEDICARE, OTHER, SELFPAY | PROVIDERS: PCP Internal Medicine; Visit Provider Internal Medicine | DX: E13.9 Other specified diabetes mellitus without complications (principal); E78.9 Disorder of lipoprotein metabolism, unspecified; F41.1 Generalized anxiety disorder; Z91.09 Other allergy status, other than to drugs and biological substances; M79.89 Other specified soft tissue disorders; G47.9 Sleep disorder, unspecified | CPT/HCPCS: 96127; 99212 ==

== ENCOUNTER 2025-07-26 08:32 | Outpatient (AMB) | payer MEDICARE, OTHER, SELFPAY ==
--- NOTE | 2025-07-26 08:33 | A.OFFPC_ITS ---
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: No Accompanied by: Spouse Allergies No Known Allergies (No Known Allergies*) Allergy (Verified 07/26/25 08:34) Medication List - Last Reconciled 07/26/25 by Mary Pina MD dulaglutide 3 mg (0.5 mL) subcut QWEEK 30 days escitalopram oxalate (Lexapro) 10 mg PO DAILY FreeStyle Lite Strips (blood sugar diagnostic) BID NS glipizide 10 mg PO BID 90 days lancets As directed lisinopril 2.5 mg PO DAILY 90 days lorazepam 0.5 mg PO BEDTIME PRN pioglitazone (Actos) 30 mg PO DAILY 90 days polyethylene glycol 3350 (Miralax) 17 grams PO DAILY simvastatin 40 mg PO BEDTIME 90 days Tobacco use date assessed: 01/18/25 Fall risk assessment: No Falls in past year Last assessed Fall Risk: 07/26/25 Dental Screening Dental Screen Date: 01/18/25 HPI 3 months f/up HPI Details History The patient is a 65 year old female presenting with routine follow-up for diabetes management and peripheral edema. Type 2 Diabetes Mellitus: - Hemoglobin A1c level was 8.[address] test done on April 16, 2025, reflecting suboptimal control. - Recent lab drawn at the visit shows he moglobin A1c at 8.5. - Patient experiences blood glucose leve ls that vary significantly, with occasional lows at 68 and morning readings around 156. - Suggested dietary control was noted fo r better management of blood glucose. Peripheral Edema (Vascular Insufficiency): - Patient reports periodic swelling of t he legs, exacerbated by prolonged standing and walking. - Symptoms include swelling, with occasi onal discomfort, not severe in nature. - Symptoms responded to leg elevation du ring sleep, alleviating swelling by morning. - Peripheral edema suspected to be relat ed to vascular insufficiency, as cardiac and podiatric evaluations returned normal. Medical History: - Type 2 Diabetes Mellitus - Anxiety and depression, patient was gonzales pposed to be on Lexapro belt she has stopped taking it Refills sent - Hypertension, treated with Lisinopril Medications: - Trulicity 3 mg, 5 mL, for diabetes man agement - Lexapro (Escitalopram) 10 mg for anxie ty and depression - Glipizide 10 mg BID for diabetes manag ement - Lisinopril 2.5 mg for hypertension - pioglitazone for diabetes - Simvastatin 40 mg (purpose unspecified ) Social History: - Patient is planning a cruise in [facility]. - requesting meclizine script which I santo ve sent for her Problem List - Type 2 Diabetes Mellitus - Peripheral Edema - Anxiety - Depression Diagnostic results - Labs: - Hemoglobin A1c: 8.5 Patient Instructions - Control diet to help manage blood gluc ose levels. - Use prescribed medication for peripher al edema when symptoms occur, ideally in the morning to avoid nocturnal urination. Lasix 20 mg as needed - For seasickness, meclizine sent to be taken b.i.d. as needed during cruise - Restart Escitalopram for anxiety, as p alpitations may be related to anxiety. - Attend next appointment in early and complete blood test before the visit. Review of Systems General: No fever no chills neurological: No headaches no dizziness ear nose throat: No sore throat no hearing difficulty no ear pain cardiovascular: No syncope, no chest pain, no palpitations gastrointestinal: No nausea vomiting or diarrhea endocrine: No polyuria polydipsia no heat intolerance genitourinary: No dysuria skin: No new complaints Physical Exam general: No acute distress HEENT: No acute findings neck: Supple respiratory system: Able to talk in full sentences, no audible wheeze no stridor cardiovascular: S1-S2 RRR, occasional palpitations noted gastrointestinal: No pain, no nausea, no vomiting extremities: Swelling noted in legs, vascular issues suspected [employer]: Alert awake oriented x3 motor sensory intact skin: Normal turgor Patient was informed and verbally consented to the use of an ambient scribe for clinic note documentation during this visit. [facility] Medical History Tubular adenoma Elevated cholesterol Diabetes Breast cancer in female Surgical History Hx of colonoscopy History of lumpectomy of left breast Family History Father Cancer Mother Stroke CVD (cardiovascular disease) Social History Household Members: Spouse Housing: House Are you a primary school childcare attendant to a significant other at home: No Do you presently have visiting nurse or other home services: No Alcohol intake: never Patient Tobacco Use Status: Never used Tobacco e-Cigarette/Vaping Use: Never Used Second Hand Smoke Exposure: No service: No Current occupational status: employed Current occupational exposures/hazards: No Cognitive needs: No Hearing needs: No Vision needs: Yes Questionnaire PHQ-9 Over the last 2 weeks, how often have you been bothered by any of the following problems? 1. Little interest or pleasure in doing things: not at all 2. Feeling down, depressed, or hopeless: not at all 3. Trouble falling or staying asleep, or sleeping too much: several days 4. Feeling tired or having little energy: several days 5. Poor appetite or overeating: not at all 6. Feeling bad about yourself - or that you are a failure or have let yourself or your family down: not at all 7. Trouble concentrating on things, such as reading the newspaper or watching television: not at all 8. Moving or speaking so slowly that other people could have noticed. Or the opposite - being so fidgety or restless that you have been moving around a lot m ore than usual: not at all 9. Thoughts that you would be better off or of hurting yourself in some way: not at all Total score: 2 Depression Screening Interpretation: Negative Depression Screening Done: Yes 42771 - PHQ-9 Billing: Yes Source: Developed by Drs. Rowdy Chamberlain, Ekaterina Ruth, Juan J Boyer and colleagues, with an educational sherry from [employer]. Thrive Questionnaire Date Thrive assessed: 04/20/25 I am a: Patient What is your living situation today?: I have a steady place to live Within the past 12 months, did the food you bought not last and you didn't have the money to get more?: I choose not to answer this question Within the past 12 months, did you worry whether your food would run out before you got money to buy more?: I choose not to answer this question Do you have trouble paying for medicines?: I choose not to answer this question Do you have trouble getting transportation to medical appointments?: I choose not to answer this question Do you have trouble paying your heating and electricity bill?: I choose not to answer this question Do you have trouble taking care of your child, family member or friend?: I choose not to answer this question Do you have trouble with day-to-day activities such as bathing, preparing meals, shopping, managing finances, etc.?: I choose not to answer this question Are you currently unemployed and looking for a job?: I choose not to answer this question Are you interested in more education?: I choose not to answer this question Currently or been in a relationship where the following occur: I choose not to answer THRIVE Score: 0 AUDIT C Alcohol Use Questionnaire (AUDIT-C) 1. How often do you have a drink containing alcohol?: Never 3. How often do you have six or more drinks on one occasion?: Never Total Score: 0 ATIYA-7 AMB Questionnaire ATIYA-7 Date ATIYA - 7 assessed: 01/18/25 Feeling nervous, anxious, or on edge: 0 = Not at all Not being able to stop or control worryin = Not at all Worrying too much about different things: 0 = Not at all Trouble relaxin = Not at all Being so restless that it is hard to sit still: 0 = Not at all Becoming easily annoyed or irritable: 0 = Not at all Feeling afraid as if something awful might happen: 0 = Not at all Total ATIYA-7 score (0-4 normal; 5-9 mild; 10-14 moderate; 15-21 severe): 0 Source: Developed by Drs. Rowdy Chamberlain, Ekaterina Ruth, Juan J Boyer and colleagues, with an educational sherry from [employer]. ATIYA-7 Assessment Billing ATIYA-7 Assessment Tool: ATIYA-7 Assessment 49231 Physical exam (Primary Care) Vital Signs: Last Vital Signs Pulse 83 07/26/25 08:34 BP 130/70 07/26/25 08:34 Pulse Ox 97 07/26/25 08:34 Oxygen Delivery Method Room Air 07/26/25 08:34 BMI result Body Mass Index 28.2 Tobacco/Smoking Status: Tobacco use Status Tobacco use date assessed 01/18/25 07/26/25 08:39 Patient Tobacco Use Status Never used Tobacco 07/26/25 08:39 e-Cigarette/Vaping Use Never Used 07/26/25 08:39 PHQ-9: PHQ-9 Score PHQ-9: Total score 2 07/26/25 09:00 Depression Screening Interpretation: Negative Thrive Assessment: Date of Thrive Assessment Date Thrive assessed 04/20/25 07/26/25 08:39 Currently or been in a relationship where the following occur: I choose not to answer Results AMB Hemoglobin A1c AMB Hemoglobin A1c 8.5 % Last Edit by Ever Lozano CMA on 07/26/25 08: 51 Results Reviewed Results Reviewed: Laboratory Last Values Hgb A1c (Clinic) 8.5 % (4.0-6.0) H 07/26/25 08:49 Coding Level of Care Code Est Pt Level 4 (88562) Complex EM visit Add On G2211 Diagnoses Diabetes 1.5, managed as type 2 E13.9 Lipid disorder E78.9 Varicose veins of left lower extremity with inflammation I83.12 Swelling of both lower extremities M79.89 Anxiety, generalized F41.1 Palpitations R00.2 Additional Codes PHQ-9 - 44543 - PHQ-9 Billing: Yes ([id number]) ATIYA-7 Assessment Billing - ATIYA-7 Assessment Tool: ATIYA-7 Assessment 57837 ([id number]) Assessment & Plan Assessment & Plan (1) Diabetes 1.5, managed as type 2: Code(s): E13.9 - Other specified diabetes mellitus without complications Category: Medical (2) Lipid disorder: Code(s): E78.9 - Disorder of lipoprotein metabolism, unspecified Category: Medical (3) Varicose veins of left lower extremity with inflammation: Code(s): I83.12 - Varicose veins of left lower extremity with inflammation Category: Medical (4) Swelling of both lower extremities: Code(s): M79.89 - Other specified soft tissue disorders Category: Medical (5) Anxiety, generalized: Code(s): F41.1 - Generalized anxiety disorder Category: Medical (6) Palpitations: Code(s): R00.2 - Palpitations Category: Medical Plan History The patient is a 65 year old female presenting with routine follow-up for diabetes management and peripheral edema. Type 2 Diabetes Mellitus: - Hemoglobin A1c level was 8.3 on the last test done on April 16, 2025, reflecting suboptimal control. - Recent lab drawn at the visit shows hemoglobin A1c at 8.5. - Patient experiences blood glucose levels that vary significantly, with occasional lows at 68 and morning readings around 156. - Suggested dietary control was noted for better management of blood glucose. Peripheral Edema (Vascular Insufficiency): - Patient reports periodic swelling of the legs, exacerbated by prolonged standing and walking. - Symptoms include swelling, with occasional discomfort, not severe in nature. - Symptoms responded to leg elevation during sleep, alleviating swelling by morning. - Peripheral edema suspected to be related to vascular insufficiency, as cardiac and podiatric evaluations returned normal. Continued to have palpitations off and on Medical History: - Type 2 Diabetes Mellitus - Anxiety and depression, patient was supposed to be on Lexapro belt she has stopped taking it Refills sent - Hypertension, treated with Lisinopril Medications: - Trulicity 3 mg, 5 mL, for diabetes management - Lexapro (Escitalopram) 10 mg for anxiety and depression - Glipizide 10 mg BID for diabetes management - Lisinopril 2.5 mg for hypertension - pioglitazone for diabetes - Simvastatin 40 mg (purpose unspecified) Social History: - Patient is planning a cruise in [place]. - requesting meclizine script which I have sent for her Problem List - Type 2 Diabetes Mellitus - Peripheral Edema - Anxiety - Depression Diagnostic results - Labs: - Hemoglobin A1c: 8.5 Patient Instructions - Control diet to help manage blood glucose levels. - Use prescribed medication for peripheral edema when symptoms occur, ideally in the morning to avoid nocturnal urination. Lasix 20 mg as needed - For seasickness, meclizine sent to be taken b.i.d. as needed during cruise - Restart Escitalopram for anxiety, as palpitations may be related to anxiety. - Attend next appointment in early November and complete blood test before the visit. Orders: Orders AMB Hemoglobin A1c Today Z13.9 - Encounter for screening, unspecified Complete Blood Count Auto Diff Today E13.9 - Other specified diabetes mellitus without complications, E78.9 - Disorder of lipoprotein metabolism, unspecified, F41.1 - Generalized anxiety disorder, I83.12 - Varicose veins of left lower extremity with inflammation, M79.89 - Other specified soft tissue disorders, R00.2 - Palpitations Comprehensive Met. Panel Today E13.9 - Other specified diabetes mellitus without complications, E78.9 - Disorder of lipoprotein metabolism, unspecified, F41.1 - Generalized anxiety disorder, I83.12 - Varicose veins of left lower extremity with inflammation, M79.89 - Other specified soft tissue disorders, R00.2 - Palpitations LDL Cholesterol Direct Today E13.9 - Other specified diabetes mellitus without complications, E78.9 - Disorder of lipoprotein metabolism, unspecified, F41.1 - Generalized anxiety disorder, I83.12 - Varicose veins of left lower extremity with inflammation, M79.89 - Other specified soft tissue disorders, R00.2 - Palpitations Hemoglobin A1c Today E13.9 - Other specified diabetes mellitus without complications, E78.9 - Disorder of lipoprotein metabolism, unspecified, F41.1 - Generalized anxiety disorder, I83.12 - Varicose veins of left lower extremity with inflammation, M79.89 - Other specified soft tissue disorders, R00.2 - Palpitations Microalbumin, Random (w Creat) Today E13.9 - Other specified diabetes mellitus without complications, E78.9 - Disorder of lipoprotein metabolism, unspecified, F41.1 - Generalized anxiety disorder, I83.12 - Varicose veins of left lower extremity with inflammation, M79.89 - Other specified soft tissue disorders, R0 0.2 - Palpitations TSH reflex Free T4 Today E13.9 - Other specified diabetes mellitus without complications, E78.9 - Disorder of lipoprotein metabolism, unspecified, F41.1 - Generalized anxiety disorder, I83.12 - Varicose veins of left lower extremity with inflammation, M79.89 - Other specified soft tissue disorders, R00.2 - Palpitations Medications: New furosemide (Lasix) 20 mg PO DAILY 30 tabs 0RF feet swelling meclizine (Antivert) 25 mg PO BID 14 tabs 0RF meclizine (Antivert) 25 mg PO BID 30 tabs 0RF Refilled escitalopram oxalate (Lexapro) 10 mg PO DAILY 90 tabs 0RF stress
[2025-07-26 08:34] VITALS: BP 130/70; PULSE 83; O2SAT 97; BMI 28.2
== END 2025-07-26 10:04 | disposition home or self-care (01) ==
LOC: HO.HMCC 08:32
PROVIDERS: PCP Internal Medicine; Visit Provider Internal Medicine
DX: E13.9 Other specified diabetes mellitus without complications (principal); E78.9 Disorder of lipoprotein metabolism, unspecified; I83.12 Varicose veins of left lower extremity with inflammation; M79.89 Other specified soft tissue disorders; F41.1 Generalized anxiety disorder; R00.2 Palpitations; Z13.9 Encounter for screening, unspecified

== ENCOUNTER → 2025-07-26 08:32 | Outpatient (BNVA) | payer MEDICARE, OTHER, SELFPAY | PROVIDERS: PCP Internal Medicine; Visit Provider Internal Medicine | DX: E13.9 Other specified diabetes mellitus without complications (principal); E78.9 Disorder of lipoprotein metabolism, unspecified; I83.12 Varicose veins of left lower extremity with inflammation; R60.0 Localized edema; F41.1 Generalized anxiety disorder; R00.2 Palpitations | CPT/HCPCS: 83036; 96127; 99212 ==

== ENCOUNTER 2025-10-31 09:27 | Outpatient (REF) | payer MEDICARE, OTHER, SELFPAY ==
[2025-10-31 13:59] LABS: Hematocrit 42.2 % (37.0-47.0); Hemoglobin 13.4 g/dl (12.0-16.0); Imm Gran Abs Auto 0.01 X10*3/uL (0.00-0.03); Imm Gran Pct Auto 0.2 % (0.0-0.4); Lymphocytes Absolute Auto 1.7 X10*3/uL (1.2-4.9); MANUAL DIFF FLAG NO; Mean Corpuscular HGB Conc 31.8 g/dl (31.0-35.0); Mean Corpuscular Hemoglobin 29.7 pg (27.0-33.0); Mean Corpuscular Volume 93.6 fL (80.0-98.0); NRBC Abs Auto 0.000 X10*3/uL (0.0-0.012); NRBC Pct Auto 0.0 /100WBC (0.0-0.2); Platelet Count 250 X10*3/uL (160-400); Red Blood Count 4.51 X10*6/uL (4.20-5.50); White Blood Count 4.6 X10*3/uL (4.8-10.8)
[2025-10-31 14:24] LABS: Microalbum/Creatinine Ratio Ur 23.6 ug/mg cr (<30)
[2025-10-31 14:46] LABS: Alanine Aminotransferase 26 U/L (0-31); Albumin Level 4.4 g/dL (3.5-5.0); Alkaline Phosphatase 63 U/L (39-117); Anion Gap 13 (12-20); Aspartate Amino Transferase 29 U/L (5-31); Blood Urea Nitrogen 12 mg/dL (9-16); Calcium 9.6 mg/dL (8.4-10.2); Carbon Dioxide 26 mmol/L (22-29); Chloride 108 mmol/L (96-108); Estimated Glomerular Filt Rate > 60; Potassium 4.1 mmol/L (3.3-5.1); Sodium 143 mmol/L (135-145); Total Protein 7.1 g/dL (6.5-8.0)
== END 2025-10-31 09:28 ==
LOC: HO.HMGCLDS 09:27
PROVIDERS: PCP Internal Medicine; Visit Provider Internal Medicine
DX: E13.9 Other specified diabetes mellitus without complications (principal); E78.9 Disorder of lipoprotein metabolism, unspecified; I83.12 Varicose veins of left lower extremity with inflammation; M79.89 Other specified soft tissue disorders; F41.1 Generalized anxiety disorder; R00.2 Palpitations
CPT/HCPCS: 36415; 80053; 82043; 82570; 83036; 83721; 84443; 85025